=== PATIENT | female | born 1945 | race Two or more races ===

== ENCOUNTER 2016-07-20 00:03 | Emergency (ER) | payer MEDICAID, MEDICARE ==
[~2016-07-20] VITALS: Ht 154.9 cm; Wt 56.7 kg
[~2016-07-20 00:03] MED LIST: IBUPROFEN600 MG ORAL; KEFLEX500 MG ORAL; NORCO 5-325 TA1 EACH ORAL
[2016-07-20] MEDS ORDERED: NEURONTIN800 MG ORAL (00:12)
[2016-07-20] MEDS ORDERED: CYMBALTA60 MG ORAL (00:12)
[2016-07-20 00:15] VITALS: BP 179/96
[2016-07-20 01:21] LABS: APPEARANCE,URINE CLEAR; KETONES,URINE NEGATIVE (NEGATIVE); LEUKOCYTE ESTERASE ,URINE 1+ (NEGATIVE); NITRITE,URINE NEGATIVE (NEGATIVE); PH,URINE 7 (4.5-8.0); PROTEIN,URINE NEGATIVE (NEGATIVE); UROBILINOGEN,URINE NORMAL MG/DL (0.0-1.0)
[2016-07-20 01:46] LABS: BACTERIA,URINE OCCASIONAL /HPF; SQUAMOUS EPITHELIAL CELL,UR FEW /LPF (NONE/OCC); TRANSITIONAL EPI CELLS,URINE FEW /LPF
[2016-07-20] MEDS ORDERED: KEFLEX500 MG ORAL (01:55)
[2016-07-20] MEDS ORDERED: CYCLOBENZAPRINE10 MG ORAL (01:55)
[2016-07-20] MEDS ORDERED: Cyclobenzaprine 10mg Tab ORAL ONE (02:00)
[2016-07-20 02:15] VITALS: BP 160/89
[2016-07-20 02:20] VITALS: BP 160/89
--- NOTE | 2016-07-20 04:45 | Emergency Room Report ---
History of Present Illness General Chief Complaint: Back Pain-No Injury Source: Patient Present Illness HPI Patient is a 71-year-old female presented after increased low back spasms. Patient had gradual onset of symptoms. Patient reports having pain to the right flank. She denied any fever. She denied any vomiting. She reports having similar symptoms. Patient had not been having any diarrhea. She denied any worsening pain with movement. She stated that she had been sleeping in a vehicle this may have exacerbated her pain. Allergies: Coded Allergies: IODINE (Verified Allergy, Unknown, 01/22/16) Patient History Past Medical History: see triage record Reviewed Nursing Documentation: PMH: Agreed, PSxH: Agreed Nursing Documentation-PMH Hx Gastrointestinal Problems: Yes - REMOVAL OF GULL BLADDER History Of Psychiatric Problem: Yes Review of Systems All Other Systems: negative except mentioned in HPI Physical Exam Vital Signs Date Time Temp Pulse Resp B/P Pulse Ox O2 Delivery O2 Flow Rate FiO2 07/20/16 00:07 97.3 74 16 179/96 98 Room Air Sp02 EP Interpretation: reviewed, normal General Appearance: normal inspection, well appearing, no apparent distress, alert, GCS 15 Head: atraumatic ENT: normal ENT inspection, hearing grossly normal, normal voice Neck: normal inspection, full range of motion, supple, no bony tend Respiratory: normal inspection, lungs clear, normal breath sounds, no respiratory distress, no retraction, no wheezing Cardiovascular #1: regular rate, rhythm, no edema Gastrointestinal: normal inspection, normal bowel sounds, non tender, soft, no guarding, no hernia Genitourinary: no CVA tenderness Musculoskeletal: normal inspection, back normal, normal range of motion Neurologic: normal inspection, alert, oriented x3, responsive, cattle inspector III-XII nml as tested, speech normal Psychiatric: normal inspection, judgement/insight normal, mood/affect normal Skin: normal inspection, normal color, no rash Medical Decision Making Diagnostic Impression: Primary Impression: UTI (urinary tract infection) Additional Impression: Back pain ER Course Patient presented for flank pain. Differential diagnosis included was not limited to pneumonia, renal stone, rib fracture, pulmonary embolism, ulcer, enteritis, pyelonephritis among others. Because of complexity of patient's case imaging studies were ordered. Urinalysis showed evidence of mild urinary tract infection. CT the head and pelvis read by radiology showed a fibroid uterus without evident stone. Patient is given muscle relaxant. She is advised followup with primary care physician. She is given prescription for oral antibiotics. Last Vital Signs Date Time Temp Pulse Resp B/P Pulse Ox O2 Delivery O2 Flow Rate FiO2 07/20/16 02:20 97.3 76 16 160/89 98 Room Air Status: improved Disposition: HOME, SELF-CARE Condition: Stable Scripts Cyclobenzaprine Hcl* (FLEXERIL*) 10 Mg Tablet 10 MG ORAL TID Y for Muscle Spasm, #20 TAB Prov: Edgardo Huber 07/20/16 Cephalexin* (KEFLEX*) 500 Mg Capsule 500 MG ORAL EVERY 6 HOURS, #28 CAP 0 Refills Prov: Edgardo Huber 07/20/16 Referrals: NON PHYSICIAN (PCP) Patient Instructions: Back Pain, Adult Edgardo Huber Jul 20, 2016 04:45
--- NOTE | 2016-07-20 09:06 | Diagnostic Imaging Report ---
Indication: PAIN Technique: Spiral acquisitions obtained through the abdomen and pelvis. No oral contrast utilized, per emergency room physician request No IV contrast utilized, , history contrast allergy.. Multiplanar reconstructions were generated. Total dose length product 572 mGycm. CTDIvol(s) 11 mGy Comparison: None Findings: There is fairly extensive colonic diverticulosis. No evidence of diverticulitis. The appendix is normal. No small bowel distention. No free or loculated intraperitoneal air or fluid. There is a small fat-containing umbilical hernia, and generalized mild diastases of the rectus abdominis tendon. The distal esophagus, stomach, duodenum are unremarkable. Lack of IV contrast limits assessment of the solid organs. The gallbladder is surgically absent. The liver, bile ducts, pancreas, spleen, adrenals, kidneys are unremarkable. No retroperitoneal or mesenteric mass or adenopathy. No pelvic mass or adenopathy. There is a calcification within the uterus which likely represents an old degenerated fibroid. The included lung bases are clear. The bones demonstrate degenerative changes of the lumbosacral junction. Impression: No acute process Colonic diverticulosis Incidental findings as noted, including degenerative spondylosis, old degenerated calcified uterine fibroid, prior cholecystectomy, small fat-containing umbilical hernia This agrees with the preliminary interpretation provided overnight by [facility] teleradiology service. The CT scanner at [facility] is accredited by the [employer] and the scans are performed using protocols designed to limit radiation exposure to as low as reasonably achievable to attain images of sufficient resolution adequate for diagnostic evaluation.
== END 2016-07-20 02:20 | disposition home or self-care (01) ==
LOC: EMR 00:58
DX: N39.0 Urinary tract infection, site not specified (principal); Z90.49 Acquired absence of other specified parts of digestive tract; K57.30 Diverticulosis of large intestine without perforation or abscess without bleeding
CPT/HCPCS: 74176; 81003; 99284

== ENCOUNTER → 2016-08-14 | Emergency (ER) | payer MEDICARE ==
[~2016-08-14] VITALS: Ht 154.9 cm; Wt 57.6 kg
[~2016-08-14] MED LIST changes: +CYCLOBENZAPRINE10 MG ORAL; +CYMBALTA60 MG ORAL; +NEURONTIN800 MG ORAL
[2016-08-14 23:05] VITALS: BP 135/76
--- NOTE | 2016-08-14 23:15 | Emergency Room Report ---
History of Present Illness General Chief Complaint: Hypertension Source: Patient Present Illness HPI Is a 71-year-old female with history of hypertension. She takes Benicar for it. She been out of her medication for last 3 or 4 days. This is deep to insurance. Her insurance switch her to losartan which is on the formulary. She just to get this evening. This morning, she was at a nursing care and blood pressure will was ranging from systolic 160-180. She had no symptom. The nurse told her that if she started having headache or neck tightness to go to the ER. She had any symptoms in his was see here. She fell better now. No other complaint. Allergies: Coded Allergies: IODINE (Verified Allergy, Unknown, 01/22/16) Uncoded Allergies: ANTIBIOTICS (Allergy, Unknown, 08/14/16) PT. STATE SHE CAN ONLY TAKE SULFA DRUGS. Patient History Past Medical History: see triage record, old chart reviewed, HTN Past Surgical History: other Pertinent Family History: none Social History: Reports: smoking Last Menstrual Period: NONE Now: No Immunizations: other Reviewed Nursing Documentation: PMH: Agreed, PSxH: Agreed Nursing Documentation-PMH Hx Hypertension: Yes Review of Systems Eye: Denies: blurred vision, eye pain ENT: Denies: ear pain, nose congestion, throat swelling Respiratory: Denies: cough, shortness of breath Cardiovascular: Denies: chest pain, palpitations Gastrointestinal: Denies: abdominal pain, diarrhea, nausea, vomiting Musculoskeletal: Denies: back pain, joint pain Skin: Denies: rash Neurological: Denies: headache, numbness Endocrine: Denies: increased thirst, increased urine Hematologic/Lymphatic: Denies: easy bruising All Other Systems: negative except mentioned in HPI Physical Exam Vital Signs Date Time Temp Pulse Resp B/P Pulse Ox O2 Delivery O2 Flow Rate FiO2 08/14/16 21:52 98.1 78 18 149/93 98 Room Air vitals with mild hypertension Sp02 EP Interpretation: reviewed, normal General Appearance: well appearing, no apparent distress, alert Head: normocephalic, atraumatic Eyes: bilateral eye EOMI, bilateral eye PERRL ENT: hearing grossly normal, normal pharynx Neck: full range of motion, supple, no meningismus Respiratory: chest non-tender, lungs clear, normal breath sounds Cardiovascular #1: regular rate, rhythm, no murmur Gastrointestinal: normal bowel sounds, non tender, no mass, no organomegaly, no bruit, non-distended Musculoskeletal: back normal, gait/station normal, normal range of motion Psychiatric: mood/affect normal Skin: warm/dry Medical Decision Making Diagnostic Impression: Primary Impression: Hypertension Qualified Codes: I10 - Essential (primary) hypertension ER Course Patient with hypotension. Blood pressure much better here now. Systolic 130s. No evidence of endorgan damage. We'll discharge home. Last Vital Signs Date Time Temp Pulse Resp B/P Pulse Ox O2 Delivery O2 Flow Rate FiO2 08/14/16 23:05 98.1 81 18 135/76 98 Room Air Status: improved Disposition: HOME, SELF-CARE Condition: Stable Patient Instructions: High Blood Pressure (Hypertension) Additional Instructions: Continue with a new blood pressure medication. Followup with your Dr. in the week for recheck. Return if worse. BHAVNA BOWERS M.D. August 14, 2016 23:15
[2016-08-14 23:22] VITALS: BP 135/76
== END | disposition home or self-care (01) ==
LOC: EMR 22:06
DX: I10 Essential (primary) hypertension (principal); Z88.1 Allergy status to other antibiotic agents; Z88.8 Allergy status to other drugs, medicaments and biological substances; F17.200 Nicotine dependence, unspecified, uncomplicated
CPT/HCPCS: 99282

== ENCOUNTER 2017-01-11 15:26 | Inpatient (IN) | payer MEDICARE ==
[~2017-01-11] VITALS: Ht 154.9 cm; Wt 66.2 kg
[2017-01-11 16:20] LABS: BASOPHILS % (AUTO) 1.6 % (0.0-2.0); EOSINOPHILS % (AUTO) 1.3 % (0.0-3.0); LYMPHOCYTES % (AUTO) 40.9 % (20.0-45.0); MEAN CORPUSCULAR HEMOGLOBIN 29.9 PG (27.0-31.0); MEAN CORPUSCULAR HGB CONC 32.5 G/DL (32.0-36.0); MEAN CORPUSCULAR VOLUME 92 FL (80-99); MEAN PLATELET VOLUME 7.7 FL (6.5-10.1); MONOCYTES % (AUTO) 17.1 % (1.0-10.0); NEUTROPHILS % (AUTO) 39.2 % (45.0-75.0); PLATELET COUNT 246 K/UL (150-450); RED BLOOD COUNT 5.23 M/UL (4.20-5.40); RED CELL DISTRIBUTION WIDTH 11.5 % (11.6-14.8); WHITE BLOOD COUNT 8.7 K/UL (4.8-10.8)
[2017-01-11 16:43] LABS: ALANINE AMINOTRANSFERASE 12 U/L (3-33); ALBUMIN/GLOBULIN RATIO 1.5 (1.0-2.7); ANION GAP 20 (5-15); ASPARTATE AMINO TRANSFERASE 22 U/L (5-40); CALCIUM 9.8 mg/dL (8.6-10.2); CARBON DIOXIDE 27 mEQ/L (20-30); CHLORIDE 92 mEQ/L (98-107); CREATININE 1.6 mg/dL (0.5-0.9); HEMOLYSIS 10; POTASSIUM 3.2 mEQ/L (3.4-4.9); SODIUM 139 mEQ/L (135-145); TOTAL PROTEIN 7.5 g/dL (6.6-8.7); TROPONIN I < 0.30 ng/mL (<=0.30)
--- NOTE | 2017-01-11 17:01 | Diagnostic Imaging Report ---
Indication: SYNCOPE Technique: spiral acquisitions obtained through the brain. Angled axial and coronal 5 x 5 mm slices were reconstructed. No IV contrast utilized. Radiation dose was minimized using automated exposure control Total dose length product 1456 mGycm. CTDIvol(s) 70 mGy Comparison: none FINDINGS: There is a focus of cortical encephalomalacia in the posterior inferior right parietal lobe. Questionable lacunar infarct versus artifacts are seen in the [place]. No acute hemorrhage or edema. No mass effect or midline shift. There is age-related enlargement of the ventricles and extra axial CSF spaces. There is periventricular deep white matter ischemic change. Normal ayala-white differentiation. Visualized orbits are unremarkable. There is left maxillary, bilateral ethmoid and sphenoid mucosal thickening. The mastoids are clear. Intact calvarium. IMPRESSION: Chronic and age-related changes. 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
--- NOTE | 2017-01-11 17:04 | Diagnostic Imaging Report ---
Indication: SYNCOPE Technique: One view of the chest Comparison: none Findings: No acute infiltrates, effusions, or congestion. Tortuous calcified aorta. Normal heart size. Upper mediastinum unremarkable. Incidentally noted are cholecystectomy clips Impression: No acute process.
[2017-01-11 17:44] VITALS: BP 84/39
[2017-01-11] MEDS ORDERED: LOSARTAN POTASS50 MG ORAL (18:26)
[2017-01-11 19:35] VITALS: BP 112/55
--- NOTE | 2017-01-11 19:35 | Emergency Room Report ---
History of Present Illness General Chief Complaint: Syncope Source: Patient Present Illness HPI Patient is a 71-year-old female presented after increased dizziness and near- syncope. Patient had been vomiting several times. Patient stated this occurred after feeling dizzy. Patient stated that she had been feeling nauseated after eating some food. She subsequently began having some generalized weakness. The patient had history of chronic neck pain due to fibromyalgia and degenerative disease.The patient reports taking angiotensin receptor jimmie for hypertension Allergies: Coded Allergies: IODINE (Verified Allergy, Unknown, 01/22/16) Uncoded Allergies: ANTIBIOTICS (Allergy, Unknown, 08/14/16) PT. STATE SHE CAN ONLY TAKE SULFA DRUGS. Patient History Past Medical History: see triage record Reviewed Nursing Documentation: PMH: Agreed, PSxH: Agreed Nursing Documentation-PMH Hx Hypertension: Yes Review of Systems All Other Systems: negative except mentioned in HPI Physical Exam Vital Signs Date Time Temp Pulse Resp B/P (MAP) Pulse Ox O2 Delivery O2 Flow Rate FiO2 01/11/17 15:43 98.4 78 20 131/62 95 Room Air Sp02 EP Interpretation: reviewed, normal General Appearance: normal inspection, well appearing, no apparent distress, alert, GCS 15 Head: atraumatic ENT: normal ENT inspection, hearing grossly normal, normal voice Neck: normal inspection, full range of motion, supple, no bony tend Respiratory: normal inspection, lungs clear, normal breath sounds, no respiratory distress, no retraction, no wheezing Cardiovascular #1: regular rate, rhythm, no edema Gastrointestinal: normal inspection, normal bowel sounds, non tender, soft, no guarding, no hernia Genitourinary: no CVA tenderness Musculoskeletal: normal inspection, back normal, normal range of motion Neurologic: normal inspection, alert, oriented x3, responsive, print color matcher III-XII nml as tested, speech normal Psychiatric: normal inspection, judgement/insight normal, mood/affect normal Skin: normal inspection, normal color, no rash Medical Decision Making Diagnostic Impression: Primary Impression: Syncope Additional Impressions: Renal insufficiency Dehydration ER Course Patient presented for near syncope Differential diagnosis included but not limited to syncope versus seizure. Potential causes for syncope included arrhythmia, dehydration, acute coronary syndrome, severe anemia, pulmonary embolus. Because of complexity of patient's case laboratory testing and imaging studies were ordered. The EKG interpreted by me showed normal sinus rhythm with multiple PACs without acute ST or T wave changes rate of 87 CT the head was ordered of the patient's had dizziness. This was read by radiology to have right posterior parietal encephalomalaciaThe patient was noted to have episode of hypotension on the emergency department after IV fluids. Dr. Logan was contacted for for inpatient management Laboratory Tests Test 01/11/17 15:55 01/11/17 19:15 White Blood Count 8.7 K/UL (4.8-10.8) Red Blood Count 5.23 M/UL (4.20-5.40) Hemoglobin 15.7 G/DL (12.0-16.0) Hematocrit 48.1 % (37.0-47.0) H Mean Corpuscular Volume 92 FL (80-99) Mean Corpuscular Hemoglobin 29.9 PG (27.0-31.0) Mean Corpuscular Hemoglobin Concent 32.5 G/DL (32.0-36.0) Red Cell Distribution Width 11.5 % (11.6-14.8) L Platelet Count 246 K/UL (150-450) Mean Platelet Volume 7.7 FL (6.5-10.1) Neutrophils (%) (Auto) 39.2 % (45.0-75.0) L Lymphocytes (%) (Auto) 40.9 % (20.0-45.0) Monocytes (%) (Auto) 17.1 % (1.0-10.0) H Eosinophils (%) (Auto) 1.3 % (0.0-3.0) Basophils (%) (Auto) 1.6 % (0.0-2.0) Sodium Level 139 mEQ/L (135-145) Potassium Level 3.2 mEQ/L (3.4-4.9) L Chloride Level 92 mEQ/L (98-107) L Carbon Dioxide Level 27 mEQ/L (20-30) Anion Gap 20 (5-15) H Blood Urea Nitrogen 25 mg/dL (7-23) H Creatinine 1.6 mg/dL (0.5-0.9) H Estimate Glomerular Filtration Rate mL/min (>60) Glucose Level 192 mg/dL (74-106) H Calcium Level 9.8 mg/dL (8.6-10.2) Total Bilirubin 0.5 mg/dL (0.0-1.2) Aspartate Amino Transferase (AST) 22 U/L (5-40) Alanine Aminotransferase (ALT) 12 U/L (3-33) Alkaline Phosphatase 74 U/L (35-104) Total Creatine Kinase 46 U/L (26-140) Creatine Kinase MB 2.0 ng/mL (< 3.8) Creatine Kinase MB Relative Index 4.3 Troponin I < 0.30 ng/mL (<=0.30) Total Protein 7.5 g/dL (6.6-8.7) Albumin 4.6 g/dL (3.5-5.2) Globulin 2.9 g/dL Albumin/Globulin Ratio 1.5 (1.0-2.7) Urine Opiates Screen Pending Urine Barbiturates Screen Pending Phencyclidine (PCP) Screen Pending Urine Amphetamines Screen Pending Urine Benzodiazepines Screen Pending Urine Cocaine Screen Pending Urine Marijuana (THC) Screen Pending Last Vital Signs Date Time Temp Pulse Resp B/P (MAP) Pulse Ox O2 Delivery O2 Flow Rate FiO2 01/11/17 17:44 98.7 74 18 84/39 98 Room Air Status: unchanged Disposition: ADMITTED INPATIENT Condition: Serious Referrals: NON PHYSICIAN (PCP) Edgardo Huber Jan 11, 2017 19:35
[2017-01-11] MEDS ORDERED: Miralax 17gm pkt ORAL PRN (20:00)
[2017-01-11 20:05] VITALS: BP_SYST 103; BP_SYST 107; BP_SYST 109; BP_DIAS 66; BP_DIAS 68; BP_DIAS 71
[2017-01-11 21:22] VITALS: BP 102/62
[2017-01-11 22:20] VITALS: BP 105/68
[2017-01-11 23:00] VITALS: BP 114/68
[2017-01-11] MEDS: Docusate 100mg cap ORAL SCH (23:36)
[2017-01-11] MEDS: Heparin 5000 units/ml inj SUBQ SCH (23:37)
[2017-01-11] MEDS: NS w/KCl 20mEq 1,000 ML IV SCH (23:49)
[2017-01-12 01:13] VITALS: BP 118/73
[2017-01-12 01:32] LABS: APPEARANCE,URINE CLEAR; KETONES,URINE NEGATIVE (NEGATIVE); LEUKOCYTE ESTERASE ,URINE NEGATIVE (NEGATIVE); NITRITE,URINE NEGATIVE (NEGATIVE); PH,URINE 5 (4.5-8.0); PROTEIN,URINE NEGATIVE (NEGATIVE); UROBILINOGEN,URINE NORMAL MG/DL (0.0-1.0)
[2017-01-12 04:31] VITALS: BP 101/73
[2017-01-12] MEDS ORDERED: GABAPENTIN800 MG ORAL (05:57)
[2017-01-12 07:39] LABS: BASOPHILS % (AUTO) 0.5 % (0.0-2.0); EOSINOPHILS % (AUTO) 2.3 % (0.0-3.0); LYMPHOCYTES % (AUTO) 44.4 % (20.0-45.0); MEAN CORPUSCULAR HGB CONC 33.5 G/DL (32.0-36.0); MEAN CORPUSCULAR VOLUME 89 FL (80-99); MEAN PLATELET VOLUME 7.7 FL (6.5-10.1); MONOCYTES % (AUTO) 8.5 % (1.0-10.0); NEUTROPHILS % (AUTO) 44.3 % (45.0-75.0); PLATELET COUNT 216 K/UL (150-450); RED BLOOD COUNT 4.39 M/UL (4.20-5.40); RED CELL DISTRIBUTION WIDTH 11.4 % (11.6-14.8); WHITE BLOOD COUNT 7.8 K/UL (4.8-10.8)
[2017-01-12 07:51] LABS: ANION GAP 12 (5-15); CALCIUM 8.6 mg/dL (8.6-10.2); CARBON DIOXIDE 28 mEQ/L (20-30); CHLORIDE 102 mEQ/L (98-107); CHOLESTEROL 173 mg/dL (< 200); CHOLESTEROL/HDL RATIO 6.2 (3.3-4.4); CREATININE 0.9 mg/dL (0.5-0.9); HEMOLYSIS 4; LDL CHOLESTEROL CALC 107 mg/dL (60-99); POTASSIUM 3.2 mEQ/L (3.4-4.9); SODIUM 142 mEQ/L (135-145)
[2017-01-12 07:57] LABS: THYROID STIMULATING HORMONE 0.957 uIU/mL (0.300-4.500)
[2017-01-12 08:00] VITALS: BP 146/93
[2017-01-12] MEDS: NS w/KCl 20mEq 1,000 ML IV SCH ×3 (08:00→22:27)
[2017-01-12 08:21] LABS: TROPONIN I < 0.30 ng/mL (<=0.30)
[2017-01-12 08:57] LABS: HEMOGLOBIN A1C 5.6 % (< 6.0)
[2017-01-12] MEDS ORDERED: Flu Vaccine Quadrivalent 0.5ml IM ONE (09:00)
[2017-01-12] MEDS: Docusate 100mg cap ORAL SCH ×2 (10:35→21:04)
[2017-01-12] MEDS: Pantoprazole Inj IV SCH (10:35)
[2017-01-12] MEDS: Aspirin Baby 81mg ORAL SCH (10:35)
[2017-01-12] MEDS: DULoxetine 30mg cap ORAL SCH (10:36)
[2017-01-12] MEDS: Heparin 5000 units/ml inj SUBQ SCH ×2 (10:37→21:06)
[2017-01-12 12:00] VITALS: BP 161/70
--- NOTE | 2017-01-12 12:17 | Diagnostic Imaging Report ---
Indication: Abdominal pain comparison: 07/20/2016 CT abdomen and pelvis Technique: Contiguous helical CT images through the abdomen and pelvis was performed without intravenous or oral contrast. Reportedly, patient is allergic to iodine. CT Dose: Total DLP: 62 mGycm; Total CTDI volume 13.1 Timings: Liver appears normal. Patient is status post cholecystectomy with gallbladder fossa clips. Spleen is normal. Pancreas is normal. Adrenal glands are normal. Kidneys are normal. No hydronephrosis. No urinary tract stones. No evidence of bowel obstruction. Small umbilical hernia containing fat only is seen. Normal appendix. No free fluid or free air. Atherosclerotic calcifications of the abdominal aorta and iliac arteries. No aneurysm. In the pelvis, urinary bladder is normal. Calcifications likely due to calcified fibroids are seen in the uterus. No significant lymphadenopathy. Bones unremarkable. Lung bases are clear. Impression: No definite acute abnormalities of the abdomen pelvis on this limited noncontrast examination. Status post cholecystectomy Diverticulosis: without diverticulitis. Small umbilical hernia containing fat only.
--- NOTE | 2017-01-12 15:13 | Cardiac Electrophysiology PN ---
Subjective Subjective [id number] Objective Last 24 Hour Vital Signs Date Time Temp Pulse Resp B/P (MAP) Pulse Ox O2 Delivery O2 Flow Rate FiO2 01/12/17 12:50 76 85 86 01/12/17 12:00 98.1 74 18 161/70 99 Room Air 01/12/17 08:00 97.0 72 19 146/93 96 Nasal Cannula 2.0 01/12/17 08:00 77 01/12/17 04:31 98.1 77 20 101/73 96 Room Air 01/12/17 04:00 74 01/12/17 01:13 98.8 77 20 118/73 96 Room Air 01/12/17 00:00 75 01/11/17 23:00 98.5 85 18 114/68 98 Room Air 01/11/17 23:00 80 01/11/17 23:00 89 01/11/17 22:55 82 01/11/17 22:50 85 01/11/17 22:35 98.2 74 18 105/68 100 Room Air 01/11/17 22:20 98.2 74 18 105/68 100 Room Air 01/11/17 21:22 98.4 72 16 102/62 99 Room Air 01/11/17 20:05 98.2 72 18 107/66 100 Room Air 74 103/68 76 109/71 01/11/17 19:35 98.4 68 17 112/55 99 Room Air 01/11/17 17:44 98.7 74 18 84/39 98 Room Air 01/11/17 15:43 98.4 78 20 131/62 95 Room Air Intake and Output 01/12/17 01/13/17 19:00 07:00 Intake Total 480 ml Balance 480 ml Intake Oral 480 ml # Voids 1 Laboratory Tests Test 01/11/17 15:55 01/11/17 19:15 01/12/17 00:52 01/12/17 05:50 White Blood Count 8.7 K/UL (4.8-10.8) 7.8 K/UL (4.8-10.8) Red Blood Count 5.23 M/UL (4.20-5.40) 4.39 M/UL (4.20-5.40) Hemoglobin 15.7 G/DL (12.0-16.0) 13.2 G/DL (12.0-16.0) Hematocrit 48.1 % (37.0-47.0) H 39.2 % (37.0-47.0) Mean Corpuscular Volume 92 FL (80-99) 89 FL (80-99) Mean Corpuscular Hemoglobin 29.9 PG (27.0-31.0) 30.0 PG (27.0-31.0) Mean Corpuscular Hemoglobin Concent 32.5 G/DL (32.0-36.0) 33.5 G/DL (32.0-36.0) Red Cell Distribution Width 11.5 % (11.6-14.8) L 11.4 % (11.6-14.8) L Platelet Count 246 K/UL (150-450) 216 K/UL (150-450) Mean Platelet Volume 7.7 FL (6.5-10.1) 7.7 FL (6.5-10.1) Neutrophils (%) (Auto) 39.2 % (45.0-75.0) L 44.3 % (45.0-75.0) L Lymphocytes (%) (Auto) 40.9 % (20.0-45.0) 44.4 % (20.0-45.0) Monocytes (%) (Auto) 17.1 % (1.0-10.0) H 8.5 % (1.0-10.0) Eosinophils (%) (Auto) 1.3 % (0.0-3.0) 2.3 % (0.0-3.0) Basophils (%) (Auto) 1.6 % (0.0-2.0) 0.5 % (0.0-2.0) Sodium Level 139 mEQ/L (135-145) 142 mEQ/L (135-145) Potassium Level 3.2 mEQ/L (3.4-4.9) L 3.2 mEQ/L (3.4-4.9) L Chloride Level 92 mEQ/L (98-107) L 102 mEQ/L (98-107) Carbon Dioxide Level 27 mEQ/L (20-30) 28 mEQ/L (20-30) Anion Gap 20 (5-15) H 12 (5-15) Blood Urea Nitrogen 25 mg/dL (7-23) H 23 mg/dL (7-23) Creatinine 1.6 mg/dL (0.5-0.9) H 0.9 mg/dL (0.5-0.9) Estimat Glomerular Filtration Rate mL/min (>60) mL/min (>60) Glucose Level 192 mg/dL (74-106) H 94 mg/dL (74-106) Calcium Level 9.8 mg/dL (8.6-10.2) 8.6 mg/dL (8.6-10.2) Total Bilirubin 0.5 mg/dL (0.0-1.2) Aspartate Amino Transf (AST/SGOT) 22 U/L (5-40) Alanine Aminotransferase (ALT/SGPT) 12 U/L (3-33) Alkaline Phosphatase 74 U/L (35-104) Total Creatine Kinase 46 U/L (26-140) Creatine Kinase MB 2.0 ng/mL (< 3.8) Creatine Kinase MB Relative Index 4.3 Troponin I < 0.30 ng/mL (<=0.30) < 0.30 ng/mL (<=0.30) Total Protein 7.5 g/dL (6.6-8.7) Albumin 4.6 g/dL (3.5-5.2) Globulin 2.9 g/dL Albumin/Globulin Ratio 1.5 (1.0-2.7) Urine Opiates Screen Negative (NEGATIVE) Urine Barbiturates Screen Negative (NEGATIVE) Phencyclidine (PCP) Screen Negative (NEGATIVE) Urine Amphetamines Screen Negative (NEGATIVE) Urine Benzodiazepines Screen Negative (NEGATIVE) Urine Cocaine Screen Negative (NEGATIVE) Urine Marijuana (THC) Screen Positive (NEGATIVE) H Urine Color Pale yellow Urine Appearance Clear Urine pH 5 (4.5-8.0) Urine Specific [place] 1.015 (1.005-1.035) Urine Protein Negative (NEGATIVE) Urine Glucose (UA) Negative (NEGATIVE) Urine Ketones Negative (NEGATIVE) Urine Occult Blood Negative (NEGATIVE) Urine Nitrite Negative (NEGATIVE) Urine Bilirubin Negative (NEGATIVE) Urine Urobilinogen Normal MG/DL (0.0-1.0) Urine Leukocyte Esterase Negative (NEGATIVE) Hemoglobin A1c 5.6 % (< 6.0) Magnesium Level 2.0 mg/dL (1.7-2.5) Pro-B-Type Natriuretic Peptide 129 pg/mL (0-125) H Triglycerides Level 188 mg/dL (< 150) H Cholesterol Level 173 mg/dL (< 200) LDL Cholesterol 107 mg/dL (60-99) H HDL Cholesterol 28 mg/dL (> 60) Cholesterol/HDL Ratio 6.2 (3.3-4.4) H Thyroid Stimulating Hormone (TSH) 0.957 uIU/mL (0.300-4.500) Microbiology Date/Time Source Procedure Growth Status 01/12/17 01:15 Stool Clostridium difficile Toxin Assay - Final Complete DEBBIE RUBIO Jan 12, 2017 15:13
--- NOTE | 2017-01-12 15:29 | History and Physical ---
History of Present Illness General Date patient seen: Jan 12, 2017 Time patient seen: 15:29 Reason for Hospitalization: Syncope Present Illness HPI 71y/o female with pmh of fibromylagia, HTN who presents after syncopal episode. Per son, pt had episode of dizziness and near syncope. She c/o epigastric pain and nausea at the time after eating. No reports of chest pain, SOB, f/c, n/v, abd pain at the time. Then in triage, pt had episode of syncope after nb/nb emesis x 1. Pt also notes episode of diarrhea yesterday, but none today. In ED, pt noted to be hypotensive and given IVFs with good response. Allergies: Coded Allergies: IODINE (Verified Allergy, Unknown, 01/22/16) Uncoded Allergies: ANTIBIOTICS (Allergy, Unknown, 08/14/16) PT. STATE SHE CAN ONLY TAKE SULFA DRUGS. Medication History Scheduled Duloxetine Hcl* (Cymbalta*), 120 MG ORAL DAILY, (Reported) Gabapentin* (Gabapentin*), 1,600 MG ORAL BID, (Reported) Losartan Potassium* (Losartan Potassium*), Unknown Dose ORAL DAILY, (Reported) Patient History Healthcare decision maker Resuscitation status Full Code Advanced Directive on File Past Medical/Surgical History Past Medical/Surgical History: (1) Fibromyalgia (2) HTN (hypertension) Family History Family History: Patient reports no known family medical history. Social History Social History: (1) Lives with family Review of Systems Constitutional: Reports: no symptoms Eye: Reports: no symptoms ENT: Reports: no symptoms Respiratory: Reports: no symptoms Gastrointestinal: Reports: abdominal pain, diarrhea, nausea, vomiting Genitourinary: Reports: no symptoms Musculoskeletal: Reports: no symptoms Skin: Reports: no symptoms Psychiatric: Reports: no symptoms Neurological: Reports: syncope, dizziness Endocrine: Reports: no symptoms Hematologic/Lymphatic: Reports: no symptoms Physical Exam Physical Exam Narrative General: alert, cooperative, no distress, appears stated age Head: normocephalic, without obvious abnormality, atraumatic Eyes: conjunctivae/corneas clear. PERRL, EOM's intact Throat: lips, mucosa, and tongue normal. MMM Neck: supple, symmetrical, trachea midline, and no JVD Lungs: clear to auscultation bilaterally Heart: regular rate and rhythm, S1, S2 normal, no murmur, click, rub or gallop Abdomen: soft, non-tender, non-distended, bowel sounds normal; no masses or organomegaly Extremities: extremities normal, atraumatic, no cyanosis or edema Pulses: 2+ and symmetric Skin: skin color, texture, turgor normal; no rashes or lesions Neurologic: grossly normal, no focal deficits Last 24 Hour Vital Signs Date Time Temp Pulse Resp B/P (MAP) Pulse Ox O2 Delivery O2 Flow Rate FiO2 01/12/17 12:50 76 85 86 01/12/17 12:00 98.1 74 18 161/70 99 Room Air 01/12/17 08:00 97.0 72 19 146/93 96 Nasal Cannula 2.0 01/12/17 08:00 77 01/12/17 04:31 98.1 77 20 101/73 96 Room Air 01/12/17 04:00 74 01/12/17 01:13 98.8 77 20 118/73 96 Room Air 01/12/17 00:00 75 01/11/17 23:00 98.5 85 18 114/68 98 Room Air 01/11/17 23:00 80 01/11/17 23:00 89 01/11/17 22:55 82 01/11/17 22:50 85 01/11/17 22:35 98.2 74 18 105/68 100 Room Air 01/11/17 22:20 98.2 74 18 105/68 100 Room Air 01/11/17 21:22 98.4 72 16 102/62 99 Room Air 01/11/17 20:05 98.2 72 18 107/66 100 Room Air 74 103/68 76 109/71 01/11/17 19:35 98.4 68 17 112/55 99 Room Air 01/11/17 17:44 98.7 74 18 84/39 98 Room Air 01/11/17 15:43 98.4 78 20 131/62 95 Room Air Intake and Output 01/12/17 01/13/17 19:00 07:00 Intake Total 480 ml Balance 480 ml Intake Oral 480 ml # Voids 1 Laboratory Tests Test 01/11/17 15:55 01/11/17 19:15 01/12/17 00:52 01/12/17 05:50 White Blood Count 8.7 K/UL (4.8-10.8) 7.8 K/UL (4.8-10.8) Red Blood Count 5.23 M/UL (4.20-5.40) 4.39 M/UL (4.20-5.40) Hemoglobin 15.7 G/DL (12.0-16.0) 13.2 G/DL (12.0-16.0) Hematocrit 48.1 % (37.0-47.0) H 39.2 % (37.0-47.0) Mean Corpuscular Volume 92 FL (80-99) 89 FL (80-99) Mean Corpuscular Hemoglobin 29.9 PG (27.0-31.0) 30.0 PG (27.0-31.0) Mean Corpuscular Hemoglobin Concent 32.5 G/DL (32.0-36.0) 33.5 G/DL (32.0-36.0) Red Cell Distribution Width 11.5 % (11.6-14.8) L 11.4 % (11.6-14.8) L Platelet Count 246 K/UL (150-450) 216 K/UL (150-450) Mean Platelet Volume 7.7 FL (6.5-10.1) 7.7 FL (6.5-10.1) Neutrophils (%) (Auto) 39.2 % (45.0-75.0) L 44.3 % (45.0-75.0) L Lymphocytes (%) (Auto) 40.9 % (20.0-45.0) 44.4 % (20.0-45.0) Monocytes (%) (Auto) 17.1 % (1.0-10.0) H 8.5 % (1.0-10.0) Eosinophils (%) (Auto) 1.3 % (0.0-3.0) 2.3 % (0.0-3.0) Basophils (%) (Auto) 1.6 % (0.0-2.0) 0.5 % (0.0-2.0) Sodium Level 139 mEQ/L (135-145) 142 mEQ/L (135-145) Potassium Level 3.2 mEQ/L (3.4-4.9) L 3.2 mEQ/L (3.4-4.9) L Chloride Level 92 mEQ/L (98-107) L 102 mEQ/L (98-107) Carbon Dioxide Level 27 mEQ/L (20-30) 28 mEQ/L (20-30) Anion Gap 20 (5-15) H 12 (5-15) Blood Urea Nitrogen 25 mg/dL (7-23) H 23 mg/dL (7-23) Creatinine 1.6 mg/dL (0.5-0.9) H 0.9 mg/dL (0.5-0.9) Estimat Glomerular Filtration Rate mL/min (>60) mL/min (>60) Glucose Level 192 mg/dL (74-106) H 94 mg/dL (74-106) Calcium Level 9.8 mg/dL (8.6-10.2) 8.6 mg/dL (8.6-10.2) Total Bilirubin 0.5 mg/dL (0.0-1.2) Aspartate Amino Transf (AST/SGOT) 22 U/L (5-40) Alanine Aminotransferase (ALT/SGPT) 12 U/L (3-33) Alkaline Phosphatase 74 U/L (35-104) Total Creatine Kinase 46 U/L (26-140) Creatine Kinase MB 2.0 ng/mL (< 3.8) Creatine Kinase MB Relative Index 4.3 Troponin I < 0.30 ng/mL (<=0.30) < 0.30 ng/mL (<=0.30) Total Protein 7.5 g/dL (6.6-8.7) Albumin 4.6 g/dL (3.5-5.2) Globulin 2.9 g/dL Albumin/Globulin Ratio 1.5 (1.0-2.7) Urine Opiates Screen Negative (NEGATIVE) Urine Barbiturates Screen Negative (NEGATIVE) Phencyclidine (PCP) Screen Negative (NEGATIVE) Urine Amphetamines Screen Negative (NEGATIVE) Urine Benzodiazepines Screen Negative (NEGATIVE) Urine Cocaine Screen Negative (NEGATIVE) Urine Marijuana (THC) Screen Positive (NEGATIVE) H Urine Color Pale yellow Urine Appearance Clear Urine pH 5 (4.5-8.0) Urine Specific [place] 1.015 (1.005-1.035) Urine Protein Negative (NEGATIVE) Urine Glucose (UA) Negative (NEGATIVE) Urine Ketones Negative (NEGATIVE) Urine Occult Blood Negative (NEGATIVE) Urine Nitrite Negative (NEGATIVE) Urine Bilirubin Negative (NEGATIVE) Urine Urobilinogen Normal MG/DL (0.0-1.0) Urine Leukocyte Esterase Negative (NEGATIVE) Hemoglobin A1c 5.6 % (< 6.0) Magnesium Level 2.0 mg/dL (1.7-2.5) Pro-B-Type Natriuretic Peptide 129 pg/mL (0-125) H Triglycerides Level 188 mg/dL (< 150) H Cholesterol Level 173 mg/dL (< 200) LDL Cholesterol 107 mg/dL (60-99) H HDL Cholesterol 28 mg/dL (> 60) Cholesterol/HDL Ratio 6.2 (3.3-4.4) H Thyroid Stimulating Hormone (TSH) 0.957 uIU/mL (0.300-4.500) Microbiology Date/Time Source Procedure Growth Status 01/12/17 01:15 Stool Clostridium difficile Toxin Assay - Final Complete Height (Feet): 5 Height (Inches): 1.00 Weight (Pounds): 146 Medications Current Medications Medications (Trade) Dose Ordered Sig/Terry Route PRN Reason Start Time Stop Time Status Last Admin Dose Admin Acetaminophen (Tylenol) 650 mg Q4H PRN ORAL Mild Pain (Pain Scale 1-3) 01/11/17 20:00 02/10/17 19:59 Amlodipine Besylate (Norvasc) 5 mg DAILY ORAL 01/13/17 09:00 02/12/17 08:59 Aspirin (ASA) 81 mg DAILY ORAL 01/12/17 09:00 02/11/17 08:59 01/12/17 10:35 Dextrose (Dextrose 50%) STAT PRN IV Hypoglycemia 01/11/17 20:00 02/10/17 19:59 Docusate Sodium (Colace) 100 mg EVERY 12 HOURS ORAL 01/11/17 21:00 02/10/17 20:59 01/12/17 10:35 Duloxetine HCl (Cymbalta) 120 mg DAILY ORAL 01/12/17 09:00 02/11/17 08:59 01/12/17 10:36 Heparin Sodium (Porcine) (Heparin 5000 units/ml) 5,000 units EVERY 12 HOURS SUBQ 01/11/17 21:00 02/10/17 20:59 01/12/17 10:37 Ondansetron HCl (Zofran) 4 mg Q6H PRN IVP Nausea & Vomiting 01/11/17 20:00 02/10/17 19:59 Pantoprazole (Protonix) 40 mg DAILY IV 01/12/17 09:00 02/11/17 08:59 01/12/17 10:35 Polyethylene Glycol (Miralax) 17 gm DAILYPRN PRN ORAL Constipation 01/11/17 20:00 02/10/17 19:59 Sodium Chloride 1,000 ml @ 100 mls/hr Q10H IV 01/11/17 22:00 02/10/17 21:59 01/12/17 11:38 Assessment/Plan Problem List: (1) Syncope ICD Codes: R55 - Syncope and collapse SNOMED: 864608040 (2) Hypotension ICD Codes: I95.9 - Hypotension, unspecified SNOMED: 75485233 (3) SOLOMON (acute kidney injury) ICD Codes: N17.9 - Acute kidney failure, unspecified SNOMED: 85909946 (4) Hypokalemia ICD Codes: E87.6 - Hypokalemia SNOMED: 21301658 (5) Abd pain, nausea/emesis, diarrhea Status: stable Assessment/Plan Syncope appears to be vasovagal vs orthostatic hypotension in setting of dehydration given nausea/emesis but will r/o cardiac etiology Pt possibly has viral gastroenteritis given abd pain, nausea/vomiting, diarrhea Admit inpt Trend trop Check TTE Check carotid duplex Cardiology consulted Nuc stress test per cardiology IVFs Hold losartan given hypotension Replete lytes Trend BMP If diarrhea, recurs consider getting stool studies Pain control, nausea control DVT Prophylaxis: SCD, HSQ Code Status: Full Hospital Classification Declaration: Based on this initial evaluation, and depending on the patient's clinical course, I anticipate that this patient will require hospitalization for 2-3 days for syncope, SOLOMON and close respiratory/ hemodynamic monitoring. Disposition: Once the patient is stable to leave the hospital, I anticipate the patient will likely be discharged to the following environment: home with HH vs SNF I spent 70 minutes on this patient's case, and 40 minutes were dedicated to counseling and/or care coordination. Discussed with patient/family, nursing staff, SW/CM, regarding clinical status, treatment course, and disposition planning. Time of note may not reflect time of encounter. Dayna Manning M.D. Jan 12, 2017 15:29
[2017-01-12 16:00] VITALS: BP 130/71
[2017-01-12 20:00] VITALS: BP 138/92
[2017-01-13] VITALS: BP 134/87
[2017-01-13 04:00] VITALS: BP 151/75
[2017-01-13 07:58] VITALS: BP 141/79
[2017-01-13] MEDS: Docusate 100mg cap ORAL SCH ×2 (09:15→20:51)
[2017-01-13] MEDS: DULoxetine 30mg cap ORAL SCH (09:15)
[2017-01-13] MEDS: Pantoprazole Inj IV SCH (09:15)
[2017-01-13] MEDS: Aspirin Baby 81mg ORAL SCH (09:15)
[2017-01-13] MEDS: Heparin 5000 units/ml inj SUBQ SCH ×2 (09:18→20:53)
[2017-01-13] MEDS: NS w/KCl 20mEq 1,000 ML IV SCH (10:25)
[2017-01-13 12:02] VITALS: BP 157/89
[2017-01-13 16:06] VITALS: BP 164/89
[2017-01-13 16:18] LABS: BASOPHILS % (AUTO) 0.6 % (0.0-2.0); EOSINOPHILS % (AUTO) 2.1 % (0.0-3.0); LYMPHOCYTES % (AUTO) 35.1 % (20.0-45.0); MEAN CORPUSCULAR HEMOGLOBIN 29.8 PG (27.0-31.0); MEAN CORPUSCULAR HGB CONC 33.1 G/DL (32.0-36.0); MEAN CORPUSCULAR VOLUME 90 FL (80-99); MEAN PLATELET VOLUME 7.3 FL (6.5-10.1); MONOCYTES % (AUTO) 6.1 % (1.0-10.0); NEUTROPHILS % (AUTO) 56.1 % (45.0-75.0); PLATELET COUNT 230 K/UL (150-450); RED BLOOD COUNT 4.74 M/UL (4.20-5.40); RED CELL DISTRIBUTION WIDTH 11.4 % (11.6-14.8); WHITE BLOOD COUNT 6.7 K/UL (4.8-10.8)
[2017-01-13 16:32] LABS: ANION GAP 13 (5-15); CALCIUM 8.9 mg/dL (8.6-10.2); CARBON DIOXIDE 28 mEQ/L (20-30); CHLORIDE 101 mEQ/L (98-107); CREATININE 0.6 mg/dL (0.5-0.9); HEMOLYSIS 5; MAGNESIUM 1.4 mg/dL (1.7-2.5); PHOSPHORUS 2.2 mg/dL (2.5-4.8); POTASSIUM 3.2 mEQ/L (3.4-4.9); SODIUM 142 mEQ/L (135-145)
--- NOTE | 2017-01-13 19:23 | General Progress Note ---
Assessment/Plan Problem List: (1) Hypomagnesemia ICD Codes: E83.42 - Hypomagnesemia SNOMED: 501289810 (2) Abd pain, nausea/emesis, diarrhea (3) Hypokalemia ICD Codes: E87.6 - Hypokalemia SNOMED: 06537506 (4) Hypotension ICD Codes: I95.9 - Hypotension, unspecified SNOMED: 72380577 (5) SOLOMON (acute kidney injury) ICD Codes: N17.9 - Acute kidney failure, unspecified SNOMED: 40706931 (6) Syncope ICD Codes: R55 - Syncope and collapse SNOMED: 193091856 (7) HTN (hypertension) ICD Codes: I10 - Essential (primary) hypertension SNOMED: 82744314 Status: stable Assessment/Plan Syncope appears to be vasovagal vs orthostatic hypotension in setting of dehydration given nausea/emesis but will r/o cardiac etiology Pt possibly has viral gastroenteritis given abd pain, nausea/vomiting, diarrhea Trend trop TTE showing 60-65% EF with LVH Check carotid duplex Cardiology consulted. Appreciate recs Nuc stress test per cardiology, tomorrow AM IVFs with KCl Elevated BP today. SOLOMON resolved. Resume losartan 50mg PO daily Replete lytes prn Trend BMP If diarrhea, recurs consider getting stool studies. C. diff negative Pain control, nausea control Subjective Date patient seen: Jan 13, 2017 Allergies: Coded Allergies: IODINE (Verified Allergy, Unknown, 01/22/16) Uncoded Allergies: ANTIBIOTICS (Allergy, Unknown, 08/14/16) PT. STATE SHE CAN ONLY TAKE SULFA DRUGS. Subjective BP elevated to 170s today. Given one time dose of amlodipine 5mg Cr normalized s/p IVF hydration ECHO showing LVEF 60-65% with LVH seen by cards Denies N/V, abdominal pain, diarrhea. Denies cp, sob, dizziness. Objective Last 24 Hour Vital Signs Date Time Temp Pulse Resp B/P (MAP) Pulse Ox O2 Delivery O2 Flow Rate FiO2 01/13/17 16:43 91 171/105 01/13/17 16:06 96.6 98 20 164/89 99 Room Air 01/13/17 16:00 81 01/13/17 14:00 91 96 91 01/13/17 12:26 81 01/13/17 12:02 98.1 79 20 157/89 97 Room Air 01/13/17 09:16 83 141/79 01/13/17 08:24 74 01/13/17 07:58 97.6 83 20 141/79 98 Room Air 01/13/17 04:00 65 01/13/17 04:00 97.5 72 18 151/75 98 Room Air 2.0 01/13/17 00:00 98.1 74 20 134/87 96 Room Air 2.0 01/13/17 00:00 70 01/13/17 00:00 74 82 81 01/12/17 20:00 98.1 74 16 138/92 100 Room Air 2.0 01/12/17 20:00 78 Intake and Output 01/13/17 01/14/17 19:00 07:00 Intake Total 1680 ml Balance 1680 ml Intake Oral 980 ml IV Total 700 ml # Voids 5 Laboratory Tests Test 01/13/17 16:10 White Blood Count 6.7 K/UL (4.8-10.8) Red Blood Count 4.74 M/UL (4.20-5.40) Hemoglobin 14.1 G/DL (12.0-16.0) Hematocrit 42.6 % (37.0-47.0) Mean Corpuscular Volume 90 FL (80-99) Mean Corpuscular Hemoglobin 29.8 PG (27.0-31.0) Mean Corpuscular Hemoglobin Concent 33.1 G/DL (32.0-36.0) Red Cell Distribution Width 11.4 % (11.6-14.8) L Platelet Count 230 K/UL (150-450) Mean Platelet Volume 7.3 FL (6.5-10.1) Neutrophils (%) (Auto) 56.1 % (45.0-75.0) Lymphocytes (%) (Auto) 35.1 % (20.0-45.0) Monocytes (%) (Auto) 6.1 % (1.0-10.0) Eosinophils (%) (Auto) 2.1 % (0.0-3.0) Basophils (%) (Auto) 0.6 % (0.0-2.0) Sodium Level 142 mEQ/L (135-145) Potassium Level 3.2 mEQ/L (3.4-4.9) L Chloride Level 101 mEQ/L (98-107) Carbon Dioxide Level 28 mEQ/L (20-30) Anion Gap 13 (5-15) Blood Urea Nitrogen 9 mg/dL (7-23) Creatinine 0.6 mg/dL (0.5-0.9) Estimat Glomerular Filtration Rate mL/min (>60) Glucose Level 129 mg/dL (74-106) H Calcium Level 8.9 mg/dL (8.6-10.2) Phosphorus Level 2.2 mg/dL (2.5-4.8) L Magnesium Level 1.4 mg/dL (1.7-2.5) L Laboratory Tests 01/13/17 16:10: White Blood Count 6.7, Red Blood Count 4.74, Hemoglobin 14.1, Hematocrit 42.6, Mean Corpuscular Volume 90, Mean Corpuscular Hemoglobin 29.8, Mean Corpuscular Hemoglobin Concent 33.1, Red Cell Distribution Width 11.4L, Platelet Count 230, Mean Platelet Volume 7.3, Neutrophils (%) (Auto) 56.1, Lymphocytes (%) (Auto) 35.1, Monocytes (%) (Auto) 6.1, Eosinophils (%) (Auto) 2.1, Basophils (%) (Auto ) 0.6, Sodium Level 142, Potassium Level 3.2L, Chloride Level 101, Carbon Dioxide Level 28, Anion Gap 13, Blood Urea Nitrogen 9, Creatinine 0.6, Estimat Glomerular Filtration Rate , Glucose Level 129H, Calcium Level 8.9, Phosphorus Level 2.2L, Magnesium Level 1.4L Height (Feet): 5 Height (Inches): 1.00 Weight (Pounds): 146 General Appearance: no apparent distress EENT: PERRL/EOMI Neck: non-tender, normal alignment Cardiovascular: normal peripheral pulses, normal rate, regular rhythm Respiratory/Chest: chest wall non-tender, lungs clear, normal breath sounds Abdomen: normal bowel sounds, non tender, soft Neurologic: manager diversity II-XII grossly normal, no motor/sensory deficits, alert, oriented x 3 Skin: normal pigmentation, warm/dry Brigid Jarvis N.P. Jan 13, 2017 19:23
--- NOTE | 2017-01-13 19:30 | Cardiology Report ---
APPROVED REPORT EXAM: Two-dimensional and M-mode echocardiogram with Doppler and color Doppler. INDICATION Syncope M-Mode DIMENSIONS IVSd1.3 (0.7-1.1cm)Left Atrium (MM)3.3 (1.6-4.0cm) LVDd2.9 (3.5-5.6cm)Aortic Root2.2 (2.0-3.7cm) PWd0.9 (0.7-1.1cm)Aortic Cusp Exc.1.6 (1.5-2.0cm) LVDs1.9 (2.5-4.0cm) PWs1.8 cm Normal left ventricular chamber size, systolic function and wall motion. Left ventricular ejection fraction estimated to be 60-65 %. Mild left ventricular hypertrophy by 2-D. Anterior Echo-free space, may be due to pericardial fat or effusion. All other cardiac chamber sizes are within normal limits. Focal aortic valve sclerosis with adequate cusp excursion. Thickened mitral valve leaflets with normal excursion. Mitral annulus and aortic root calcification. Pulmonic valve not well visualized. Normal tricuspid valve structure. IVC at normal size with physiologic collapse. A color flow and spectral Doppler study was performed and revealed: Trace aortic regurgitation. Mild mitral regurgitation. Mitral diastolic velocities suggest reduced left ventricular relaxation c/w mild LV diastolic dysfunction (Grade I). Trace tricuspid regurgitation. Tricuspid systolic velocities suggests peak right ventricular systolic pressure of 23 mmHg.
[2017-01-13 20:18] VITALS: BP 151/97
[2017-01-13] MEDS: Losartan 50mg tab ORAL SCH (20:52)
[2017-01-14] VITALS: BP 153/89
[2017-01-14 04:20] VITALS: BP 108/98
[2017-01-14 07:57] VITALS: BP 142/99
[2017-01-14 08:14] LABS: ANION GAP 12 (5-15); CALCIUM 9.3 mg/dL (8.6-10.2); CARBON DIOXIDE 30 mEQ/L (20-30); CHLORIDE 100 mEQ/L (98-107); CREATININE 0.7 mg/dL (0.5-0.9); HEMOLYSIS 2; MAGNESIUM 2.3 mg/dL (1.7-2.5); POTASSIUM 3.4 mEQ/L (3.4-4.9); SODIUM 142 mEQ/L (135-145)
--- NOTE | 2017-01-14 08:31 | Consultation ---
DATE OF CONSULTATION: 01/12/2017 CARDIOLOGY CONSULTATION CONSULTING PHYSICIAN: Bob Hsieh M.D. REFERRING PHYSICIAN: Maida Mcguire M.D. REASON FOR CONSULTATION: Chest pain. History Of Present Illness: The patient is a 71-year-old lady with history of hypertension, presented to the hospital with increasing dizziness and near syncope. She also has been vomiting several times. The patient also had epigastric pain and subsequently complained of chest pain. The patient was admitted and Cardiology consultation was obtained for further evaluation and management. In the emergency room, blood pressure was 131/62 with a pulse of 78 and respirations of 20. Past medical history: History of hypertension, but denies coronary artery disease, congestive heart failure, or atrial fibrillation. Social History: She lives at home. She does not smoke or drink alcohol. FAMILY HISTORY: Noncontributory. PHYSICAL EXAMINATION: Vital Signs: Blood pressure is 161/70, pulse 74, respirations 18, and temperature 98.1. NECK: Showed no JVD. LUNGS: Clear. CARDIOVASCULAR: Regular S1 and S2 with no gallop or murmur. ABDOMEN: Soft. EXTREMITIES: No pitting edema. Laboratory Data: White count is 10.8, hemoglobin 13.2, hematocrit 39, and platelet count of 216,000. Sodium 142, potassium 3.2, BUN of 22, creatinine 0.9, and glucose of 94. Initial creatinine was 1.6. Troponins are negative x2. Triglycerides 188. ASSESSMENT AND PLAN: 1. Atypical chest pain. This is likely secondary to gastrointestinal source as the patient has had recurrent vomiting. Denies any chest pain currently. The patient was already ruled out for myocardial infarction. Her telemetry strips showed no cardiac arrhythmia and echocardiogram showed normal left ventricular systolic function with ejection fraction of 60% to 65%. We will proceed with nuclear stress test for further evaluation. 2. Hypertension. Blood pressure currently stable. Hold off on antihypertensives with normal ejection fraction. We will proceed with nuclear stress test for further evaluation. 3. Hypertension. On admission, creatinine was 1.6. Hold off on her LAUREN-inhibitor. We will start the patient on Norvasc 5 mg daily. 4. Hypokalemia. Potassium will be replaced. . Creatinine was 0.6 and back to 0.9. 5. Abdominal pain, nausea, and vomiting. Further evaluation by Gastroenterology. 6. Fibromyalgia. Thank you very much, Dr. Mcguire, for allowing me to participate in the care of this patient. Please do not hesitate to contact if you have any questions regarding my evaluation. Case was discussed with the patient's nurse at the bedside. Bob Hsieh M.D. DR: Ivana JOB#: [id number] CC:
[2017-01-14] MEDS ORDERED: Losartan 50mg tab ORAL SCH ×2 (09:00)
[2017-01-14] MEDS: Losartan 50mg tab ORAL SCH (09:00)
[2017-01-14] MEDS: Heparin 5000 units/ml inj SUBQ SCH ×2 (09:00→20:35)
[2017-01-14] MEDS: Aspirin Baby 81mg ORAL SCH (10:06)
[2017-01-14] MEDS: Pantoprazole Inj IV SCH (10:07)
[2017-01-14] MEDS: Docusate 100mg cap ORAL SCH ×2 (10:07→20:32)
[2017-01-14] MEDS: DULoxetine 30mg cap ORAL SCH (10:07)
[2017-01-14] MEDS ORDERED: NS 275ml ONE (10:12)
[2017-01-14] MEDS ORDERED: Tubing IV Secondary IV ONE (10:12)
[2017-01-14 11:53] VITALS: BP 133/72
[2017-01-14] MEDS ORDERED: Flu Vaccine Quadrivalent 0.5ml IM ONE (12:30)
[2017-01-14] MEDS ORDERED: Adenosine Inj IVP ONE (12:45)
--- NOTE | 2017-01-14 12:56 | Diagnostic Imaging Report ---
APPROVED REPORT CPT Code: 29152 Vascular Symptoms Dizziness and Vertigo CAROTID (BILATERAL) - Imaging reveals no significant plaque within the right and left extracranial carotid arteries. The Doppler spectral flow analysis is within normal limits throughout the extracranial carotid arteries bilaterally. VERTEBRAL- The vertebral arteries are within normal limits.
--- NOTE | 2017-01-14 13:47 | Cardiac Electrophysiology PN ---
Assessment/Plan Assessment/Plan 1. Atypical chest pain. Likely due to gastrointestinal source as the patient has had recurrent vomiting. Denies any chest pain currently. The patient was already ruled out for myocardial infarction. Her telemetry strips showed no cardiac arrhythmia and echocardiogram showed normal left ventricular systolic function with ejection fraction of 60% to 65%. We will proceed with nuclear stress test today. 2. Hypertension. Losartan 50 and Norvasc 5 daily. 3. Hypokalemia. Replaced 4. Abdominal pain, nausea, and vomiting. Further evaluation by Gastroenterology. 5. Fibromyalgia. Subjective Subjective Comfortable awaiting nuclear stress test today. Objective Last 24 Hour Vital Signs Date Time Temp Pulse Resp B/P (MAP) Pulse Ox O2 Delivery O2 Flow Rate FiO2 01/14/17 11:53 98.1 77 18 133/72 95 Room Air 01/14/17 08:00 65 01/14/17 07:57 97.0 70 18 142/99 98 Room Air 01/14/17 06:28 78 83 94 01/14/17 04:20 97.5 73 20 108/98 73 Room Air 01/14/17 04:00 69 01/14/17 00:00 97.5 77 20 153/89 96 Room Air 01/14/17 00:00 75 01/13/17 22:00 77 99 99 01/13/17 21:00 101 01/13/17 20:52 151/81 01/13/17 20:18 97.5 81 20 151/97 100 Room Air 01/13/17 16:43 91 171/105 01/13/17 16:06 96.6 98 20 164/89 99 Room Air 01/13/17 16:00 81 01/13/17 14:00 91 96 91 Intake and Output 01/14/17 01/15/17 19:00 07:00 Intake Total 120 ml Balance 120 ml Intake Oral 120 ml Laboratory Tests Test 01/13/17 16:10 01/14/17 06:45 White Blood Count 6.7 K/UL (4.8-10.8) Red Blood Count 4.74 M/UL (4.20-5.40) Hemoglobin 14.1 G/DL (12.0-16.0) Hematocrit 42.6 % (37.0-47.0) Mean Corpuscular Volume 90 FL (80-99) Mean Corpuscular Hemoglobin 29.8 PG (27.0-31.0) Mean Corpuscular Hemoglobin Concent 33.1 G/DL (32.0-36.0) Red Cell Distribution Width 11.4 % (11.6-14.8) L Platelet Count 230 K/UL (150-450) Mean Platelet Volume 7.3 FL (6.5-10.1) Neutrophils (%) (Auto) 56.1 % (45.0-75.0) Lymphocytes (%) (Auto) 35.1 % (20.0-45.0) Monocytes (%) (Auto) 6.1 % (1.0-10.0) Eosinophils (%) (Auto) 2.1 % (0.0-3.0) Basophils (%) (Auto) 0.6 % (0.0-2.0) Sodium Level 142 mEQ/L (135-145) 142 mEQ/L (135-145) Potassium Level 3.2 mEQ/L (3.4-4.9) L 3.4 mEQ/L (3.4-4.9) Chloride Level 101 mEQ/L (98-107) 100 mEQ/L (98-107) Carbon Dioxide Level 28 mEQ/L (20-30) 30 mEQ/L (20-30) Anion Gap 13 (5-15) 12 (5-15) Blood Urea Nitrogen 9 mg/dL (7-23) 11 mg/dL (7-23) Creatinine 0.6 mg/dL (0.5-0.9) 0.7 mg/dL (0.5-0.9) Estimat Glomerular Filtration Rate mL/min (>60) mL/min (>60) Glucose Level 129 mg/dL (74-106) H 105 mg/dL (74-106) Calcium Level 8.9 mg/dL (8.6-10.2) 9.3 mg/dL (8.6-10.2) Phosphorus Level 2.2 mg/dL (2.5-4.8) L Magnesium Level 1.4 mg/dL (1.7-2.5) L 2.3 mg/dL (1.7-2.5) Microbiology Date/Time Source Procedure Growth Status 01/12/17 00:00 Nasal Nares Right MRSA Culture - Final NO METHICILLIN RESISTANT STAPH AUREUS... Complete 01/12/17 01:15 Stool Clostridium difficile Toxin Assay - Final Complete 01/12/17 00:00 Rectal Mucosa VRE Culture - Final NO VANCOMYCIN RESISTANT ENTEROCOCCUS ... Complete Objective temperature 98.1. NECK: Showed no JVD. LUNGS: Clear. CARDIOVASCULAR: Regular S1 and S2 with no gallop or murmur. ABDOMEN: Soft. EXTREMITIES: No pitting edema. DEBBIE RUBIO Jan 14, 2017 13:47
[2017-01-14 15:42] VITALS: BP 136/82
--- NOTE | 2017-01-14 16:28 | Diagnostic Imaging Report ---
Indication: chest pain Technique: The study was conducted under the supervision of a visual designer. Adenosine infusion followed by intravenous administration of 30.3 mCi of technetium 99m Myoview was performed. Three plane SPECT imaging of the heart was then performed. A resting study was performed as part of the one-day protocol with 10 mCi of technetium 99m myoview injected intravenously at that time. Three plane SPECT imaging of the heart was obtained. Comparison: None Clinical data: 1. Clinical response: Non ischemic 2. Electrocardiographic response: Non ischemic Findings: The myocardial perfusion scan demonstrates no fixed or reversible perfusion defects. Left jugular ejection fraction estimated at 83%. Impression: Negative myocardial perfusion scan
--- NOTE | 2017-01-14 16:28 | General Progress Note ---
Assessment/Plan Problem List: (1) Syncope ICD Codes: R55 - Syncope and collapse SNOMED: 018647934 (2) Hypotension ICD Codes: I95.9 - Hypotension, unspecified SNOMED: 84878394 (3) SOLOMON (acute kidney injury) ICD Codes: N17.9 - Acute kidney failure, unspecified SNOMED: 66428222 (4) Hypokalemia ICD Codes: E87.6 - Hypokalemia SNOMED: 88849086 (5) Abd pain, nausea/emesis, diarrhea (6) Generalized weakness ICD Codes: R53.1 - Weakness SNOMED: 51665021 Status: stable Assessment/Plan Syncope appears to be vasovagal vs orthostatic hypotension in setting of dehydration given nausea/emesis but will r/o cardiac etiology Pt possibly has viral gastroenteritis given abd pain, nausea/vomiting, diarrhea Trop neg x 3, EKG w/o changes TTE showing 60-65% EF with LVH Carotid duplex unremarkable Cardiology consulted. Appreciate recs Nuc stress test planned for today D/c IVFs Cont losartan 50mg PO daily Replete lytes prn Trend BMP If diarrhea, recurs consider getting stool studies. C. diff negative Pain control, nausea control Supportive care PT/OT eval SW/CM consulted for SNF/rehab placement DVT Prophylaxis: SCD, HSQ Code Status: Full Hospital Classification Declaration: Based on this initial evaluation, and depending on the patient's clinical course, I anticipate that this patient will require hospitalization for 1-2 days for syncope, ischemic eval, generalized weakness and close respiratory/hemodynamic monitoring. Disposition: Once the patient is stable to leave the hospital, I anticipate the patient will likely be discharged to the following environment: SNF I spent 40 minutes on this patient's case, and 22 minutes were dedicated to counseling and/or care coordination. Discussed with patient/family, nursing staff, SW/CM, cardiology regarding clinical status, treatment course, and disposition planning. Time of note may not reflect time of encounter. Subjective Date patient seen: Jan 14, 2017 Time patient seen: 16:25 ROS Limited/Unobtainable: No Constitutional: Reports: no symptoms HEENT: Reports: no symptoms Cardiovascular: Reports: no symptoms Respiratory: Reports: no symptoms Gastrointestinal/Abdominal: Reports: no symptoms Genitourinary: Reports: no symptoms Neurologic/Psychiatric: Reports: no symptoms Endocrine: Reports: no symptoms Hematologic/Lymphatic: Reports: no symptoms Allergies: Coded Allergies: IODINE (Verified Allergy, Unknown, 01/22/16) Uncoded Allergies: ANTIBIOTICS (Allergy, Unknown, 08/14/16) PT. STATE SHE CAN ONLY TAKE SULFA DRUGS. All Systems: reviewed and negative except above Subjective No acute o/n events Awaiting nuc stress test Pt states currently homeless and son lives in car. She c/o weakness and would like to go to a short-term rehab Denies f/c, n/v, d/c, chest pain, SOB Objective Last 24 Hour Vital Signs Date Time Temp Pulse Resp B/P (MAP) Pulse Ox O2 Delivery O2 Flow Rate FiO2 01/14/17 15:42 97.9 74 18 136/82 96 Room Air 01/14/17 14:00 75 97 91 01/14/17 12:00 69 01/14/17 11:53 98.1 77 18 133/72 95 Room Air 01/14/17 08:00 65 01/14/17 07:57 97.0 70 18 142/99 98 Room Air 01/14/17 06:28 78 83 94 01/14/17 04:20 97.5 73 20 108/98 73 Room Air 01/14/17 04:00 69 01/14/17 00:00 97.5 77 20 153/89 96 Room Air 01/14/17 00:00 75 01/13/17 22:00 77 99 99 01/13/17 21:00 101 01/13/17 20:52 151/81 01/13/17 20:18 97.5 81 20 151/97 100 Room Air 01/13/17 16:43 91 171/105 Intake and Output 01/14/17 01/15/17 19:00 07:00 Intake Total 240 ml Balance 240 ml Intake Oral 240 ml # Voids 2 Laboratory Tests 01/14/17 06:45: Sodium Level 142, Potassium Level 3.4, Chloride Level 100, Carbon Dioxide Level 30, Anion Gap 12, Blood Urea Nitrogen 11, Creatinine 0.7, Estimat Glomerular Filtration Rate , Glucose Level 105, Calcium Level 9.3, Magnesium Level 2.3 Height (Feet): 5 Height (Inches): 1.00 Weight (Pounds): 146 Objective General: alert, cooperative, no distress, appears stated age Head: normocephalic, without obvious abnormality, atraumatic Eyes: conjunctivae/corneas clear. PERRL, EOM's intact Throat: lips, mucosa, and tongue normal. MMM Neck: supple, symmetrical, trachea midline, and no JVD Lungs: clear to auscultation bilaterally Heart: regular rate and rhythm, S1, S2 normal, no murmur, click, rub or gallop Abdomen: soft, non-tender, non-distended, bowel sounds normal; no masses or organomegaly Extremities: extremities normal, atraumatic, no cyanosis or edema Pulses: 2+ and symmetric Skin: skin color, texture, turgor normal; no rashes or lesions Neurologic: grossly normal, no focal deficits Dayna Manning M.D. Jan 14, 2017 16:28
[2017-01-14 20:00] VITALS: BP 154/87
[2017-01-15] VITALS: BP 144/94
[2017-01-15 04:00] VITALS: BP 136/90
[2017-01-15 08:37] VITALS: BP 131/77
[2017-01-15] MEDS: DULoxetine 30mg cap ORAL SCH (08:39)
[2017-01-15] MEDS: Docusate 100mg cap ORAL SCH (08:39)
[2017-01-15] MEDS: Losartan 50mg tab ORAL SCH (08:39)
[2017-01-15] MEDS: Pantoprazole Inj IV SCH (08:41)
[2017-01-15] MEDS: Aspirin Baby 81mg ORAL SCH (08:42)
[2017-01-15] MEDS: Heparin 5000 units/ml inj SUBQ SCH (08:46)
[2017-01-15 12:28] VITALS: BP 129/86
--- NOTE | 2017-01-15 19:17 | Discharge Summary ---
Discharge Summary Hospital Course Date of Admission Jan 11, 2017 at 18:52 Date of Discharge Jan 15, 2017 at 15:50 Admitting Diagnosis syncope, hypotension HPI Khris Taveras is a 71 year old female who was admitted on Jan 11, 2017 at 18 :52 for Syncope, Hypotension Discharge Discharge Disposition Patient was discharged to SNF/Subacute Facility(03) Discharge Diagnoses: Dayna Manning M.D. Jan 15, 2017 19:17
--- NOTE | 2017-01-21 15:15 | Discharge Summary ---
Discharge Summary Hospital Course Date of Admission Jan 11, 2017 at 18:52 Date of Discharge Jan 15, 2017 at 15:50 Admitting Diagnosis syncope, hypotension Reason for Hospitalization: syncope, hypotension HPI 71y/o female with pmh of fibromylagia, HTN who presents after syncopal episode. Per son, pt had episode of dizziness and near syncope. She c/o epigastric pain and nausea at the time after eating. No reports of chest pain, SOB, f/c, n/v, abd pain at the time. Then in triage, pt had episode of syncope after nb/nb emesis x 1. Pt also notes episode of diarrhea yesterday, but none today. In ED, pt noted to be hypotensive and given IVFs with good response. Labs notable for SOLOMON. Consultations Cardiology Hospital Course Pt was admitted to tele and ruled out for ACS with serial trop/EKG. TTE showed normal EF. Pt was treated w/ IVFs and BP normalized. SOLOMON also improved. Electrolytes were repleted. Pt w/ likely viral illness. Given generalized weakness, PT/OT was consulted who recommended SNF. Discharge Physical Exam General: alert, cooperative, no distress, appears stated age Head: normocephalic, without obvious abnormality, atraumatic Eyes: conjunctivae/corneas clear. PERRL, EOM's intact Throat: lips, mucosa, and tongue normal. MMM Neck: supple, symmetrical, trachea midline, and no JVD Lungs: clear to auscultation bilaterally Heart: regular rate and rhythm, S1, S2 normal, no murmur, click, rub or gallop Abdomen: soft, non-tender, non-distended, bowel sounds normal; no masses or organomegaly Extremities: extremities normal, atraumatic, no cyanosis or edema Pulses: 2+ and symmetric Skin: skin color, texture, turgor normal; no rashes or lesions Neurologic: grossly normal, no focal deficits Discharge Medications Continued Medications: Duloxetine Hcl* (Cymbalta*) 60 Mg Capsule.dr 120 MG ORAL DAILY, CAP Gabapentin* (Gabapentin*) 800 Mg Tablet 1600 MG ORAL BID, TAB Losartan Potassium* (Losartan Potassium*) 50 Mg Tablet Unknown Dose ORAL DAILY, TAB Discharge Discharge Disposition Patient was discharged to SNF/Subacute Facility(03) Discharge Diagnoses: (1) Pre-syncope (2) Hypotension (3) Hypokalemia (4) Hyponatremia (5) Hypomagnesemia (6) Generalized weakness Dayna Manning M.D. Jan 21, 2017 15:15
--- NOTE | 2017-02-03 17:40 | Cardiology Report ---
APPROVED REPORT EKG Measurement Heart [id number] ME 138P55 [id number] Normal sinus rhythm Normal ECG
--- NOTE | 2017-02-03 17:48 | Cardiology Report ---
APPROVED REPORT EKG Measurement Heart [id number] MT 138P50 [id number] Sinus rhythm with premature atrial complexes Otherwise normal ECG
== END 2017-01-15 15:50 | DRG 315 ==
LOC: EDBEDREQ 18:22 → EMR 18:50 → 2W 18:52 → EDBEDREQ 20:33 → EDBEDREQSVC 21:40 → EDBEDREQ 21:40 → 2E 22:03
DX: I95.9 Hypotension, unspecified (principal); N17.9 Acute kidney failure, unspecified; E83.42 Hypomagnesemia; E87.1 Hypo-osmolality and hyponatremia; E86.0 Dehydration; R55 Syncope and collapse; E87.6 Hypokalemia; I10 Essential (primary) hypertension; M79.7 Fibromyalgia; Z23 Encounter for immunization; R07.89 Other chest pain; A08.4 Viral intestinal infection, unspecified
CPT/HCPCS: 36415; 70450; 71010; 74176; 78452; 80048; 80053; 80061; 80300; 81003; 82550; 82553; 82962; 83036; 83735; 83880; 84100; 84443; 84484; 85025; 87081; 87324; 90630; 93005; 93017; 93306; 93880; 99285; J2405; J8499

== ENCOUNTER 2017-02-24 17:40 | Emergency (ER) | payer MEDICARE ==
[~2017-02-24] VITALS: Ht 154.9 cm; Wt 59.0 kg
[~2017-02-24 17:40] MED LIST changes: +GABAPENTIN800 MG ORAL; +LOSARTAN POTASS50 MG ORAL
--- NOTE | 2017-02-24 18:27 | Emergency Room Report ---
History of Present Illness General Chief Complaint: Lower Back Pain or Injury Source: Patient Present Illness HPI 71 YO Female presents to the ED C/o 11/22 in severity spasm pain from the muscles of the upper right side of her back x 2 days. Pt. reports hx of previous symptoms and was d/x'd with a pinched nerve ultimately causing her symptoms after imaging was performed. pt. denies changes in the character of her pain from previous episodes, pt. denies N/V, fevers, chills, trauma or fall. pt. reports intermittent tingling sensation in the right arm. denies muscular weakness. pt. denies cough, SOB, abdominal pain. Denies numbness tingling or loss of sensation or gross motor movements of the extremities, incontinence of bowel or bladder. Denies CP, Palpitations, LOC, AMS, dizziness, Changes in Vision, Sensation, or a sudden severe headache. Denies hx of recent spinal procedures, night sweats or hx of cancer. Allergies: Coded Allergies: IODINE (Verified Allergy, Unknown, 01/22/16) Uncoded Allergies: ANTIBIOTICS (Allergy, Unknown, 08/14/16) PT. STATE SHE CAN ONLY TAKE SULFA DRUGS. Patient History Past Medical History: see triage record, HTN Past Surgical History: none Pertinent Family History: none Now: No Reviewed Nursing Documentation: PMH: Agreed, PSxH: Agreed Nursing Documentation-PMH Hx Hypertension: Yes Hx Cancer: No Hx Neurological Problems: No Hx Dizziness: Yes Hx Syncope: Yes Review of Systems All Other Systems: negative except mentioned in HPI Physical Exam Vital Signs Date Time Temp Pulse Resp B/P (MAP) Pulse Ox O2 Delivery O2 Flow Rate FiO2 02/24/17 17:54 97.9 91 16 133/92 97 Room Air Sp02 EP Interpretation: reviewed, normal General Appearance: no apparent distress, alert, GCS 15, non-toxic Head: normocephalic, atraumatic Eyes: bilateral eye normal inspection, bilateral eye PERRL ENT: hearing grossly normal, normal voice Neck: full range of motion, no meningismus, no bony tend Respiratory: chest non-tender, lungs clear, normal breath sounds, speaking full sentences Cardiovascular #1: regular rate, rhythm, normal capillary refill Cardiovascular #2: 2+ radial (R), 2+ radial (L) Gastrointestinal: normal bowel sounds, non tender, soft, no guarding, no pulsatile mass, no rebound Rectal: deferred Genitourinary: normal inspection, no CVA tenderness Musculoskeletal: back normal, gait/station normal, normal range of motion, tender - mild right sided trapezius and thoracic paraspinal ttp, no midline or left sided ttp, no obvious deformity, erythema, bruises, or masses. FROM . Neurologic: alert, oriented x3, responsive, motor strength/tone normal, sensory intact, normal gait, speech normal, grossly normal Skin: normal color, no rash, warm/dry, well hydrated Lymphatic: no adenopathy Medical Decision Making PA Attestation Dr. Hwang is my supervising Physician whom patient management has been discussed with. Diagnostic Impression: Primary Impression: Spasm of back muscles ER Course 71 YO Female presents to the ED C/o 11/22 in severity spasm pain from the muscles of the upper right side of her back x 2 days. Pt. reports hx of previous symptoms and was d/x'd with a pinched nerve ultimately causing her symptoms after imaging was performed. pt. denies changes in the character of her pain from previous episodes, pt. denies N/V, fevers, chills, trauma or fall. pt. reports intermittent tingling sensation in the right arm. denies muscular weakness. pt. denies cough, SOB, abdominal pain. Denies numbness tingling or loss of sensation or gross motor movements of the extremities, incontinence of bowel or bladder. Denies CP, Palpitations, LOC, AMS, dizziness, Changes in Vision, Sensation, or a sudden severe headache. Denies hx of recent spinal procedures, night sweats or hx of cancer. Ddx considered but are not limited to Fracture, dislocation, contusion, epidural abscess, Sprain/Strain/Spasm, aortic dissection, radiculopathy just to name a few. Vital signs: are WNL, pt. is afebrile, non-toxic in appearance. H&PE are most consistent with muscle spasm with no changes in character from previous episodes that have been fully evaluated with imaging studies. ORDERS: none required at this time. ED INTERVENTIONS: none required at this time. -d/w pt. conservative treatment, and to follow up with a primary care provider. pt given a list of primary care clinics for follow up. d/w pt. to return to the ED with worsening or new symptoms. -Pt. reports recently becoming homeless and having to live out of her vehicle with her . pt. was given a list of transitional housing resources, free /reduced cost healthcare clinics, and homeless resource packet. DISCHARGE: At this time pt. is stable for d/c to home. Will provide printed patient care instructions, and any necessary prescriptions. Care plan and follow up instructions have been discussed with the patient prior to discharge. Last Vital Signs Date Time Temp Pulse Resp B/P (MAP) Pulse Ox O2 Delivery O2 Flow Rate FiO2 02/24/17 17:54 97.9 91 16 133/92 97 Room Air Disposition: HOME, SELF-CARE Condition: Stable Scripts Methocarbamol* (ROBAXIN-750*) 750 Mg Tablet 750 MG PO TID for 7 Days, #21 TAB 0 Refills Prov: Elvia Salazar 02/24/17 Patient Instructions: Back Pain, Adult Additional Instructions: Take medications as directed. Follow up with a Primary Care Provider in 3-5 days, even if your symptoms have resolved. --Please review list of primary care clinics, if you do not already have a primary care provider Return sooner to ED if new symptoms occur, or current symptoms become worse. Do not drink alcohol, drive, or operate heavy machinery while taking Muscle Relaxer as this may cause drowsiness. - Please note that this Emergency Department Report was dictated using mang[employer]sham[employer] smith technology software, occasionally this can lead to erroneous entry secondary to interpretation by the dictation equipment. Elvia Salazar Feb 24, 2017 18:27
[2017-02-24] MEDS ORDERED: ROBAXIN-750750 MG PO (18:31)
[2017-02-24 18:46] VITALS: BP 133/83
== END 2017-02-24 18:50 | disposition home or self-care (01) ==
LOC: EMR 18:12
DX: M62.830 Muscle spasm of back (principal); I10 Essential (primary) hypertension
CPT/HCPCS: 99283

== ENCOUNTER 2017-03-04 00:09 | Emergency (ER) | payer MEDICARE ==
[~2017-03-04] VITALS: Ht 154.9 cm; Wt 57.6 kg
[~2017-03-04 00:09] MED LIST changes: +ROBAXIN-750750 MG PO
[2017-03-04] MEDS ORDERED: Methocarbamol 750mg tab ORAL ONE (00:30)
[2017-03-04] MEDS ORDERED: Ketorolac 60mg Inj IM ONE (00:30)
[2017-03-04 00:32] VITALS: BP 146/82
[2017-03-04] MEDS ORDERED: ACETAMINOPHEN-1 EAC1 ORAL (01:02)
[2017-03-04] MEDS ORDERED: IBUPROFEN600 MG ORAL (01:02)
[2017-03-04 01:18] VITALS: BP 146/82
--- NOTE | 2017-03-04 06:21 | Emergency Room Report ---
History of Present Illness General Chief Complaint: Back Pain-No Injury Source: Patient, Medical Record Present Illness HPI Patient presents with complaints of right back pain Patient points to her rib cage mid clavicular posteriorly at approximately 2 ribs below the scapular region Patient denies any chest pain or shortness of breath Denies any vomiting She reports that she was given muscle relaxants which helped a little bit Denies any other trauma she does report that she had a mild cough and wasn't sure if this exacerbated the situation Denies any midline back pain patient reports that she has neck problems and is due for consultation for that Allergies: Coded Allergies: IODINE (Verified Allergy, Unknown, 01/22/16) Uncoded Allergies: ANTIBIOTICS (Allergy, Unknown, 08/14/16) PT. STATE SHE CAN ONLY TAKE SULFA DRUGS. Patient History Past Medical History: see triage record Pertinent Family History: none Last Menstrual Period: none Now: No : 1 Para: 1 Reviewed Nursing Documentation: PMH: Agreed, PSxH: Agreed Nursing Documentation-PMH Hx Hypertension: Yes Hx Cancer: No Hx Neurological Problems: No Hx Dizziness: Yes Hx Syncope: Yes Review of Systems All Other Systems: negative except mentioned in HPI Physical Exam Vital Signs Date Time Temp Pulse Resp B/P (MAP) Pulse Ox O2 Delivery O2 Flow Rate FiO2 03/04/17 00:22 98.4 76 15 146/82 98 Room Air Sp02 EP Interpretation: reviewed, normal General Appearance: well appearing, no apparent distress Head: normocephalic, atraumatic Eyes: bilateral eye PERRL, bilateral eye EOMI ENT: hearing grossly normal, normal pharynx Neck: full range of motion, supple Respiratory: lungs clear, normal breath sounds Cardiovascular #1: regular rate, rhythm, no edema Gastrointestinal: non tender, soft Genitourinary: no CVA tenderness Musculoskeletal: other - Tender palpation between the ribs just both scapula midline, fairly specific discomfort no obvious rash a dermatomal findings Neurologic: alert, oriented x3, responsive Skin: no rash Lymphatic: no adenopathy Medical Decision Making Diagnostic Impression: Primary Impression: Back pain Additional Impression: rib pain ER Course Patient has had fairly extensive workup recently I did perform EKG to rule out any obvious cardiac pathology Which was normal Patient's exam is fairly specific She was provided with pain medicine has done better And requires close followup EKG Diagnostic Results Rate: normal Rhythm: NSR ST Segments: no acute changes Rhythm Strip Diag. Results EP Interpretation: yes Rate: 66 Rhythm: NSR, no PVC's, no ectopy Last Vital Signs Date Time Temp Pulse Resp B/P (MAP) Pulse Ox O2 Delivery O2 Flow Rate FiO2 03/04/17 01:18 98.4 15 146/82 98 Room Air 03/04/17 00:22 76 Status: improved Disposition: HOME, SELF-CARE Condition: Improved Scripts Ibuprofen* (MOTRIN*) 600 Mg Tablet 600 MG ORAL Q8H Y for For Pain, #20 TAB 0 Refills Prov: MELBA NICOLE D.O. 03/04/17 Acetaminophen With Codeine (T#3) (TYLENOL #3 TAB*) Y Tab 1 TAB ORAL Q8H Y for For Pain, #10 TAB Prov: MELBA NICOLE D.O. 03/04/17 Referrals: NON PHYSICIAN (PCP) Patient Instructions: Costochondritis, [id number], Back Pain, Adult Additional Instructions: Patient is provided with the discharge instructions notified to follow up with primary doctor in the next 2-3 days otherwise return to the er with any worsening symptoms. Please note that this report is being documented using [employer] technology. This can lead to erroneous entry secondary to incorrect interpretation by the dictating instrument. MELBA NICOLE D.O. Mar 04, 2017 06:21
--- NOTE | 2017-03-04 17:58 | Cardiology Report ---
APPROVED REPORT EKG Measurement Heart [id number] SD 150P60 [id number] Normal sinus rhythm Normal ECG
== END 2017-03-04 01:17 | disposition home or self-care (01) ==
LOC: EMR 00:47
DX: M54.9 Dorsalgia, unspecified (principal); R42 Dizziness and giddiness; R07.81 Pleurodynia; R55 Syncope and collapse; I10 Essential (primary) hypertension; Z88.8 Allergy status to other drugs, medicaments and biological substances; Z88.1 Allergy status to other antibiotic agents
CPT/HCPCS: 93005; 96372; 99284

== ENCOUNTER 2017-05-08 09:37 | Emergency (ER) | payer MEDICARE ==
[~2017-05-08] VITALS: Ht 152.4 cm; Wt 59.0 kg
[~2017-05-08 09:37] MED LIST changes: +ACETAMINOPHEN-1 EAC1 ORAL
--- NOTE | 2017-05-08 10:52 | Diagnostic Imaging Report ---
Indications: Fall, trauma, right facial injury Technique: Spiral acquisitions obtained through the brain. Angled axial and coronal 5 x 5 mm slices were reconstructed. Total dose length product 1410.48 mGycm. CTDI vol(s) 70.38 mGy. Dose reduction achieved using automated exposure control Comparison: 01/11/2017 Findings: Again demonstrated is an area of encephalomalacia in the right posterior parietal lobe. No acute intracranial hemorrhage or edema, mass effect, nor midline shift. There is generalized age-related enlargement of the ventricles and extra-axial CSF spaces. There is periventricular deep white matter low-attenuation consistent with chronic ischemic change. 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 Otherwise normal ayala-white differentiation. Visualized orbits and sinuses are unremarkable. Intact calvarium. No significant interim change. Previously questioned pontine low-attenuation areas are less evident currently, probably artifactual Impression: Chronic and age-related changes Negative for acute intracranial bleed or mass effect The CT scanner at [facility] is accredited by the [employer] and the scans are performed using protocols designed to limit radiation exposure to as low as reasonably achievable to attain images of sufficient resolution adequate for diagnostic evaluation.
[2017-05-08] MEDS ORDERED: IBUPROFEN600 MG ORAL (11:08)
[2017-05-08 11:10] VITALS: BP 99/70
[2017-05-08 11:20] VITALS: BP 99/70
--- NOTE | 2017-05-08 12:48 | Diagnostic Imaging Report ---
Indication: Reason For Exam: PAIN Technique: 3 views right hand Comparison: none Findings: No acute fractures. No dislocations. There is degenerative narrowing of the second through fifth distal interphalangeal joints, too slight extent the second through fifth proximal interphalangeal joints, as well as the first carpometacarpal joint. A cyst is seen within the scaphoid. The bones are osteoporotic. Impression: No acute bony trauma Degenerative changes, as described Cyst in the scaphoid, likely an intraosseous ganglion Osteoporosis
--- NOTE | 2017-05-10 13:39 | Emergency Room Report ---
History of Present Illness General Chief Complaint: General Complaint Present Illness HPI Patient is a 71-year-old female presented after having recently witnessed a mentally traumatizing event. Patient states that she had seen a young lady commit suicide and had been upset about the situation. She denies thoughts of harming herself. She denies any intrusive thoughts. She denies any auditory or visual hallucinations. The patient reported having a recent fall and stated that she had some pain to the right side of her face as well as to her hand. She denied any nausea or vomiting. She denied any weakness Allergies: Coded Allergies: IODINE (Verified Allergy, Unknown, 01/22/16) Uncoded Allergies: ANTIBIOTICS (Allergy, Unknown, 08/14/16) PT. STATE SHE CAN ONLY TAKE SULFA DRUGS. Patient History Past Medical History: see triage record Now: No Reviewed Nursing Documentation: PMH: Agreed, PSxH: Agreed Nursing Documentation-PMH Hx Hypertension: Yes Hx Cancer: No Hx Neurological Problems: No Hx Dizziness: Yes Hx Syncope: Yes Review of Systems All Other Systems: negative except mentioned in HPI Physical Exam Vital Signs Date Time Temp Pulse Resp B/P (MAP) Pulse Ox O2 Delivery O2 Flow Rate FiO2 05/08/17 09:44 98.2 118 20 201/105 99 Room Air General Appearance: well appearing, no apparent distress, alert, GCS 15 Head: normocephalic, atraumatic ENT: hearing grossly normal, normal voice Neck: full range of motion, supple Respiratory: no respiratory distress, speaking full sentences Musculoskeletal: no calf tenderness Neurologic: normal inspection, alert, responsive, normal gait Psychiatric: normal inspection, judgement/insight normal, mood/affect normal Skin: no rash, abrasions - right side of face Medical Decision Making Diagnostic Impression: Primary Impression: Head contusion Additional Impression: Hand contusion ER Course Patient presented for head injury. Differential diagnosis included was not limited to neck fracture, CVA, close head injury, syncopal episode, basilar ischemia. Patient has a benign exam and does not appear to require any laboratory testing at this time. A CT imaging of the head was ordered due to patient's age. CT the head read by radiology showed atrophic changes without fracture or intracranial hemorrhage. Patient was given mental health referrals. The patient is advised to follow up with primary care doctor in 1- 2 days. Patient is advised to return if any worsening condition or if any changes in status that are concerning. This report is dictated with [employer] special education instructor software which may occasionally lead to discrepancies related to use of this software. Last Vital Signs Date Time Temp Pulse Resp B/P (MAP) Pulse Ox O2 Delivery O2 Flow Rate FiO2 05/08/17 11:20 102 16 99/70 98 Room Air 05/08/17 11:10 98.4 Status: improved Disposition: HOME, SELF-CARE Condition: Stable Scripts Ibuprofen* (MOTRIN*) 600 Mg Tablet 600 MG ORAL Q8H Y for For Pain, #30 TAB 0 Refills Prov: Edgardo Huber 05/08/17 Patient Instructions: Contusion Edgardo Huber May 10, 2017 13:39
== END 2017-05-08 11:24 | disposition home or self-care (01) ==
LOC: EMR 10:17
DX: S00.83XA Contusion of other part of head, initial encounter (principal); S60.221A Contusion of right hand, initial encounter; W19.XXXA Unspecified fall, initial encounter; Y92.9 Unspecified place or not applicable; I10 Essential (primary) hypertension; Z88.1 Allergy status to other antibiotic agents; Z88.8 Allergy status to other drugs, medicaments and biological substances
CPT/HCPCS: 70450; 99284

== ENCOUNTER 2017-05-08 18:39 | Emergency (ER) | payer MEDICARE ==
[~2017-05-08] VITALS: Ht 152.4 cm; Wt 61.2 kg
[2017-05-08 19:15] VITALS: BP 207/121
[2017-05-08] MEDS ORDERED: cloNIDine 0.2mg Tab ORAL ONE (19:30)
--- NOTE | 2017-05-08 19:33 | Emergency Room Report ---
History of Present Illness General Chief Complaint: Hypertension Present Illness HPI Patient is a 71-year-old female who presents today with complaints of elevated blood pressure. Patient states that she isn't very symptomatic for the past 2 days and they have caused her blood pressure to elevate. She states she currently is unsure where her son is that he recently had a car accident and she thinks "something bad happen to him." She denies any headache, blurred vision, double vision associated symptoms. She has a history of hypokalemia and states she is having cramping in her feet. She denies any chest pain, shortness of breath, nausea, vomiting or associated symptoms. Allergies: Coded Allergies: IODINE (Verified Allergy, Unknown, 01/22/16) Uncoded Allergies: ANTIBIOTICS (Allergy, Unknown, 08/14/16) PT. STATE SHE CAN ONLY TAKE SULFA DRUGS. Patient History Reviewed Nursing Documentation: PMH: Agreed, PSxH: Agreed Nursing Documentation-PMH Hx Hypertension: Yes Hx Cancer: No Hx Neurological Problems: No Hx Dizziness: Yes Hx Syncope: Yes Review of Systems Cardiovascular: Reports: other - HTN All Other Systems: negative except mentioned in HPI Physical Exam Vital Signs Date Time Temp Pulse Resp B/P (MAP) Pulse Ox O2 Delivery O2 Flow Rate FiO2 05/08/17 18:36 110 20 207/121 99 Room Air Sp02 EP Interpretation: reviewed, normal General Appearance: no apparent distress, alert, GCS 15, non-toxic Head: normocephalic, atraumatic Eyes: bilateral eye normal inspection, bilateral eye PERRL ENT: hearing grossly normal, normal pharynx, no angioedema, normal voice Neck: full range of motion, supple/symm/no masses Respiratory: chest non-tender, lungs clear, normal breath sounds, speaking full sentences Cardiovascular #1: regular rate, rhythm, no edema Cardiovascular #2: 2+ carotid (R), 2+ carotid (L), 2+ radial (R), 2+ radial (L) , 2+ dorsalis pedis (R), 2+ dorsalis pedis (L) Gastrointestinal: normal bowel sounds, non tender, soft, non-distended, no guarding, no rebound Rectal: deferred Genitourinary: normal inspection, no CVA tenderness Musculoskeletal: back normal, gait/station normal, normal range of motion, non- tender, calf tenderness Neurologic: alert, oriented x3, responsive, motor strength/tone normal, sensory intact, cerebellar normal, normal gait, speech normal, no pronator Psychiatric: judgement/insight normal, memory normal, mood/affect normal, no suicidal/homicidal ideation Reflexes: 3+ bicep (R), 3+ bicep (L), 3+ tricep (R), 3+ tricep (L), 3+ knee (R) , 3+ knee (L) Skin: normal color, no rash, warm/dry, well hydrated Lymphatic: no adenopathy Medical Decision Making PA Attestation supervising physician Dr. Hess Diagnostic Impression: Primary Impression: Uncontrolled hypertension Additional Impression: Stress reaction ER Course Patient is a 71-year-old female with history of hypertension M. today she's been taking her hypertensive medications at home. Patient's series of simple traumatic event over the past 24 hours which she states as the source of her elevated blood pressure. Patient is given 0.2 mg clonidine in the ED with improvement of symptoms on reevaluation. No need for further evaluation and management as hypertension is asymptomatic. Patient complaining of cramping in her feet and states his history of hypokalemia. Labs are within normal limits. Patient states she is feeling better on reevaluation. Discharged home with instructions to follow up with PCP for further evaluation and management. Patient understands this we will plan Reevaluation Time: 20:53 Last Vital Signs Date Time Temp Pulse Resp B/P (MAP) Pulse Ox O2 Delivery O2 Flow Rate FiO2 05/08/17 18:36 110 20 207/121 99 Room Air Status: improved Disposition: HOME, SELF-CARE Condition: Stable Patient Instructions: Hypertension Kaleigh Arenas May 08, 2017 19:33
[2017-05-08 20:07] LABS: BASOPHILS % (AUTO) 0.7 % (0.0-2.0); EOSINOPHILS % (AUTO) 0.3 % (0.0-3.0); HEMOGLOBIN 14.1 G/DL (12.0-16.0); LYMPHOCYTES % (AUTO) 17.1 % (20.0-45.0); MEAN CORPUSCULAR VOLUME 90 FL (80-99); PLATELET COUNT 360 K/UL (150-450); RED BLOOD COUNT 4.69 M/UL (4.20-5.40); RED CELL DISTRIBUTION WIDTH 11.4 % (11.6-14.8); WHITE BLOOD COUNT 13.9 K/UL (4.8-10.8)
[2017-05-08 20:16] LABS: ANION GAP 13 mmol/L (5-15); BLOOD UREA NITROGEN 28 mg/dL (7-18); CALCIUM 9.8 MG/DL (8.5-10.1); CARBON DIOXIDE 27 MMOL/L (21-32); CHLORIDE 100 MMOL/L (98-107); CREATININE 1.1 MG/DL (0.55-1.30); POTASSIUM 3.6 MMOL/L (3.5-5.1); SODIUM 140 MMOL/L (136-145)
[2017-05-08 20:23] LABS: ALANINE AMINOTRANSFERASE 16 U/L (12-78); ALBUMIN 4.3 G/DL (3.4-5.0); ALBUMIN/GLOBULIN RATIO 1.1 (1.0-2.7); ALKALINE PHOSPHATASE 80 U/L (46-116); ASPARTATE AMINO TRANSFERASE 29 U/L (15-37); BILIRUBIN,TOTAL 0.5 MG/DL (0.2-1.0)
[2017-05-08 20:36] VITALS: BP 178/107
[2017-05-08 20:59] VITALS: BP 178/107
== END 2017-05-08 20:59 | disposition home or self-care (01) ==
LOC: EDBD 18:39 → EMR 19:08
DX: I10 Essential (primary) hypertension (principal); F43.9 Reaction to severe stress, unspecified; Z88.1 Allergy status to other antibiotic agents; Z88.8 Allergy status to other drugs, medicaments and biological substances
CPT/HCPCS: 36415; 80053; 85025; 99284

== ENCOUNTER 2017-05-15 08:18 | Emergency (ER) | payer MEDICARE ==
[~2017-05-15] VITALS: Ht 154.9 cm; Wt 56.7 kg
--- NOTE | 2017-05-15 08:23 | Emergency Room Report ---
History of Present Illness General Chief Complaint: To Be Triaged Source: Patient Present Illness HPI 71YOF walk-in with rib pain right side from injury "years ago." No recent trauma/falls Pain worse to right ribs with deep inspiration No recent URI symptoms, cough, fever/chills Non-smoker Lives in car/homeless Allergies: Coded Allergies: IODINE (Verified Allergy, Unknown, 01/22/16) Uncoded Allergies: ANTIBIOTICS (Allergy, Unknown, 08/14/16) PT. STATE SHE CAN ONLY TAKE SULFA DRUGS. Patient History Past Medical History: none Past Surgical History: none Pertinent Family History: none Social History: Denies: smoking, alcohol use, drug use Now: No Immunizations: UTD Reviewed Nursing Documentation: PMH: Agreed, PSxH: Agreed Nursing Documentation-PMH Hx Hypertension: Yes Hx Cancer: No Hx Neurological Problems: Yes - Fiber Myalgia Hx Dizziness: Yes Hx Syncope: Yes Review of Systems All Other Systems: negative except mentioned in HPI Physical Exam Sp02 EP Interpretation: reviewed, normal General Appearance: normal inspection, well appearing, no apparent distress, alert, GCS 15, non-toxic Head: normocephalic, atraumatic Eyes: bilateral eye PERRL, bilateral eye EOMI ENT: normal ENT inspection, hearing grossly normal, normal pharynx, no angioedema, normal voice, TMs + canals normal, uvula midline, moist mucus membranes Neck: normal inspection, full range of motion, supple, thyroid normal, no meningismus, no bony tend Respiratory: normal inspection, lungs clear, normal breath sounds, no rhonchi, no respiratory distress, no retraction, no accessory muscle use, no wheezing, speaking full sentences, other - Very mild ttp to deep palpation of right anterior ribs, chest symmetrical Cardiovascular #1: regular rate, rhythm, no edema, no JVD, normal capillary refill Gastrointestinal: normal inspection, normal bowel sounds, non tender, soft, no mass, no peritonitis, non-distended, no guarding, no hernia, no pulsatile mass Genitourinary: no CVA tenderness Musculoskeletal: normal inspection, back normal, normal range of motion, no calf tenderness, pelvis stable, Allen's Sign negative Neurologic: normal inspection, alert, oriented x3, responsive, legal services professional III-XII nml as tested, motor strength/tone normal, cerebellar normal, normal gait, speech normal Psychiatric: normal inspection, judgement/insight normal, mood/affect normal, no suicidal/homicidal ideation, no delusions Skin: normal inspection, normal color, no rash Lymphatic: normal inspection, no adenopathy Medical Decision Making Diagnostic Impression: Primary Impression: Rib pain on right side Additional Impression: Homeless ER Course VSS, Afebrile lungs CTAB Unlikely PTX No recent trauma ?rib pain from prior contusion Xrays negative for acute fx NSAIDs given SW consult for homelessness DC with motrin ER course: Patient has remained stable during ED stay. Disposition: Patient is to be discharged to home. Prescriptions given are motrin Patient is instructed to follow up with their primary care doctor within 5 days. Strict return precautions discussed with patient such as fever, chills, worsening/severe pain, nausea, vomiting, which may indicate severe illness. Patient verbalizes understanding and agrees with plan. Please note that this Emergency Department Report was dictated using Forgamefundraising consultant technology software, occasionally this can lead to erroneous entry secondary to interpretation by the dictation equipment Other X-Ray Diagnostic Results Other X-Ray Diagnostic Results : X-Ray ordered: Ribs # of Views/Limited Vs Complete: 3 View Indication: Pain EP Interpretation: Yes Interpretation: no dislocation, no soft tissue swelling, no fractures Impression: No acute disease Electronically Signed by: Dr Kyle Ramsey MD Status: improved Disposition: HOME, SELF-CARE Scripts Ibuprofen* (MOTRIN*) 600 Mg Tablet 600 MG ORAL THREE TIMES A DAY for rib pain for 7 Days, #30 TAB 0 Refills Prov: KYLE RAMSEY M.D. 05/15/17 KYLE RAMSEY M.D. May 15, 2017 08:23
[2017-05-15 08:34] VITALS: BP 160/99
[2017-05-15] MEDS ORDERED: IBUPROFEN600 MG ORAL (09:30)
[2017-05-15 10:38] VITALS: BP 159/103
--- NOTE | 2017-05-15 13:34 | Diagnostic Imaging Report ---
Indication: Right sided chest pain status post fall Technique: Multiple views of the right ribs Comparison: none Findings: No acute fractures. No dislocations. No pneumothorax. Incidentally noted are cholecystectomy clips Impression: Negative This agrees with the preliminary interpretation provided by the emergency room physician
== END 2017-05-15 10:38 | disposition home or self-care (01) ==
LOC: EMR 08:51
DX: R07.81 Pleurodynia (principal); Z59.0 Homelessness; I10 Essential (primary) hypertension; Z88.1 Allergy status to other antibiotic agents; Z91.041 Radiographic dye allergy status
CPT/HCPCS: 99283

== ENCOUNTER 2017-08-29 20:54 | Emergency (ER) | payer MEDICARE ==
[~2017-08-29] VITALS: Ht 154.9 cm; Wt 56.7 kg
[~2017-08-29 20:54] MED LIST changes: +CYMBALTA30 MG ORAL; +LOSARTAN POTASS25 MG ORAL; +NEURONTIN100 MG ORAL
[2017-08-29 20:55] VITALS: BP 103/65
--- NOTE | 2017-08-29 21:09 | Emergency Room Report ---
History of Present Illness General Chief Complaint: Generalized Weakness Source: Patient, EMS Present Illness HPI 72-year-old female with history of hypertension and fibromyalgia presents to the ER for generalized weakness, brought in by ambulance from a street corner where she was hanging out with her friends. She does report urinary frequency but reports no pain complaints, no fevers, no shortness of breath, but is very drowsy, and she denies any recent drug use Allergies: Coded Allergies: IODINE (Verified Allergy, Unknown, 01/22/16) PENICILLINS (Unverified Allergy, Unknown, 08/29/17) Uncoded Allergies: ANTIBIOTICS (Allergy, Unknown, 08/14/16) PT. STATE SHE CAN ONLY TAKE SULFA DRUGS. Patient History Past Medical History: see triage record Now: No Reviewed Nursing Documentation: PMH: Agreed; PSxH: Agreed Nursing Documentation-PMH Hx Hypertension: Yes Hx Cancer: No Hx Neurological Problems: Yes - Fiber Myalgia Hx Dizziness: Yes Hx Syncope: Yes Review of Systems All Other Systems: negative except mentioned in HPI Physical Exam Vital Signs Date Time Temp Pulse Resp B/P (MAP) Pulse Ox O2 Delivery O2 Flow Rate FiO2 08/29/17 20:48 98.3 63 20 103/65 97 Room Air 98.2 Sp02 EP Interpretation: reviewed, normal General Appearance: no apparent distress, alert, non-toxic Head: normocephalic Eyes: bilateral eye normal inspection, bilateral eye PERRL, bilateral eye EOMI ENT: normal ENT inspection, hearing grossly normal, normal pharynx, no angioedema, normal voice, moist mucus membranes Neck: normal inspection, full range of motion, supple, supple/symm/no masses Respiratory: chest non-tender, lungs clear, normal breath sounds, chest symmetrical, palpation of chest normal Cardiovascular #1: normal peripheral pulses, regular rate, rhythm Cardiovascular #2: 2+ radial (R), 2+ radial (L) Gastrointestinal: normal inspection, non tender, soft, no mass, no guarding, no rebound Rectal: deferred Genitourinary: normal inspection, no CVA tenderness Musculoskeletal: back normal, gait/station normal, normal range of motion, non- tender, no calf tenderness Neurologic: alert - Very drowsy, but easily arousable to verbal stimulus, responsive, client experience manager III-XII nml as tested, motor strength/tone normal, sensory intact, speech normal Psychiatric: judgement/insight normal, memory normal, mood/affect normal Skin: normal color, no rash, warm/dry, normal turgor Lymphatic: no adenopathy Medical Decision Making ER Course I suspect patient is on multiple substances causing her drowsiness, I do not suspect any other acute illness, she has an unremarkable neurologic exam, is alert and oriented to person place situation and time, and other than being drowsy, I do not suspect any acute pathology, I will obtain a basic workup and reevaluate. Patient had a low K+, was given IV and PO potassium, EKG normal with no U waves , normal QTc, will dc home with rx for KCl also. EKG Diagnostic Results EKG Time: 21:08 EP Interpretation: no st-t changes, no twi Rate: normal Rhythm: NSR ST Segments: no acute changes ASA given to the pt in ED: No Rhythm Strip Diag. Results Rhythm Strip Time: 21:31 EP Interpretation: yes Rate: 67 Rhythm: NSR, no PVC's, no ectopy Chest X-Ray Diagnostic Results Chest X-Ray Diagnostic Results : Chest X-Ray Ordered: Yes # of Views/Limited/Complete: 1 View Indication: Other EP Interpretation: Yes PA Xray: Interpretation reviewed Interpretation: no consolidation, no effusion, no pneumothorax, no acute cardiopulmonary disease, other - prominent mediastinum Impression: No acute disease Electronically Signed by: Dora Goyal MD Last Vital Signs Date Time Temp Pulse Resp B/P (MAP) Pulse Ox O2 Delivery O2 Flow Rate FiO2 08/29/17 20:48 98.3 63 20 103/65 97 Room Air 98.2 DORA GOYAL M.D August 29, 2017 21:09
[2017-08-29 21:56] LABS: BASOPHILS % (AUTO) 0.9 % (0.0-2.0); EOSINOPHILS % (AUTO) 1.9 % (0.0-3.0); HEMATOCRIT 43.9 % (37.0-47.0); HEMOGLOBIN 14.8 G/DL (12.0-16.0); LYMPHOCYTES % (AUTO) 12.9 % (20.0-45.0); MEAN CORPUSCULAR VOLUME 87 FL (80-99); MONOCYTES % (AUTO) 6.1 % (1.0-10.0); NEUTROPHILS % (AUTO) 78.3 % (45.0-75.0); PLATELET COUNT 268 K/UL (150-450); RED BLOOD COUNT 5.05 M/UL (4.20-5.40); RED CELL DISTRIBUTION WIDTH 11.2 % (11.6-14.8); WHITE BLOOD COUNT 11.4 K/UL (4.8-10.8)
[2017-08-29 22:20] LABS: ALANINE AMINOTRANSFERASE 18 U/L (12-78); ALBUMIN 3.9 G/DL (3.4-5.0); ALKALINE PHOSPHATASE 80 U/L (46-116); ANION GAP 7 mmol/L (5-15); ASPARTATE AMINO TRANSFERASE 21 U/L (15-37); BILIRUBIN,TOTAL 0.4 MG/DL (0.2-1.0); BLOOD UREA NITROGEN 24 mg/dL (7-18); CALCIUM 9.5 MG/DL (8.5-10.1); CARBON DIOXIDE 34 MMOL/L (21-32); CHLORIDE 101 MMOL/L (98-107); CREATININE 1.4 MG/DL (0.55-1.30); SODIUM 143 MMOL/L (136-145)
[2017-08-29 22:21] LABS: POTASSIUM 2.7 MMOL/L (3.5-5.1)
[2017-08-29 22:41] LABS: APPEARANCE,URINE CLEAR; BILIRUBIN, URINE NEGATIVE (NEGATIVE); COLOR,URINE PALE YELLOW; GLUCOSE, URINE (UA) NEGATIVE (NEGATIVE); KETONES,URINE NEGATIVE (NEGATIVE); LEUKOCYTE ESTERASE ,URINE NEGATIVE (NEGATIVE); NITRITE,URINE NEGATIVE (NEGATIVE); PH,URINE 8 (4.5-8.0); PROTEIN,URINE NEGATIVE (NEGATIVE); UROBILINOGEN,URINE NORMAL MG/DL (0.0-1.0)
[2017-08-30 00:03] VITALS: BP 125/73
[2017-08-30] MEDS ORDERED: POTASSIUM CHLO20 ME2 ORAL (00:08)
[2017-08-30 01:00] VITALS: BP 109/69
--- NOTE | 2017-08-30 11:14 | Diagnostic Imaging Report ---
Indication: Shortness of breath Technique: One view of the chest Comparison: 01/11/2017 Findings: Tortuous ectatic calcified aorta. Lungs and pleural spaces are clear. Inspiration is suboptimal. There are cholecystectomy clips. No significant interim change Impression: No acute process
--- NOTE | 2017-09-02 14:02 | Cardiology Report ---
APPROVED REPORT EKG Measurement Heart [id number] Normal sinus rhythm Nonspecific T wave abnormality Abnormal ECG
== END 2017-08-30 01:05 | disposition home or self-care (01) ==
LOC: EDBD 20:54 → EMR 21:48
DX: R53.1 Weakness (principal); I10 Essential (primary) hypertension; M79.7 Fibromyalgia; Z88.0 Allergy status to penicillin; Z91.041 Radiographic dye allergy status
CPT/HCPCS: 36415; 71045; 80053; 80307; 81003; 83735; 85025; 93005; 96374; 96375; 99284; J3480; J8499

== ENCOUNTER 2017-10-12 08:20 | Emergency (ER) | payer MEDICARE ==
[~2017-10-12] VITALS: Ht 154.9 cm; Wt 56.7 kg
[2017-10-12 08:20] VITALS: BP 154/117
[~2017-10-12 08:20] MED LIST changes: +POTASSIUM CHLO20 ME2 ORAL
[2017-10-12] MEDS ORDERED: Methocarbamol 750mg tab ORAL ONE (08:45)
[2017-10-12] MEDS ORDERED: Ketorolac 30mg Inj IM ONE (08:45)
[2017-10-12] MEDS ORDERED: Norco 5mg/325mg tab ORAL ONE (08:45)
[2017-10-12] MEDS ORDERED: ROBAXIN-750750 MG PO (09:43)
[2017-10-12] MEDS ORDERED: ACETAMINOPHEN-1 EAC1 ORAL (09:43)
[2017-10-12 09:51] VITALS: BP 140/98
--- NOTE | 2017-10-12 10:24 | Emergency Room Report ---
History of Present Illness General Chief Complaint: Back Pain-No Injury Source: Patient Present Illness HPI 72-year-old female presents ED complaining of back pain. Brought in by EMS. Was found in a home, squatting as per EMS. Patient states her back "locked up" . History of back problems. Denies any recent injury. Pain is 7 out of 10, cramping, nonradiating. Denies any bowel or bladder incontinence. Denies any leg or motor weakness. No other aggravating relieving factors. Denies any other associated symptoms Allergies: Coded Allergies: IODINE (Verified Allergy, Unknown, 01/22/16) PENICILLINS (Unverified Allergy, Unknown, 08/29/17) Uncoded Allergies: ANTIBIOTICS (Allergy, Unknown, 08/14/16) PT. STATE SHE CAN ONLY TAKE SULFA DRUGS. Patient History Past Medical History: other - fibromyalgia Past Surgical History: none Pertinent Family History: none Social History: Denies: smoking, alcohol use, drug use Now: No Immunizations: UTD Reviewed Nursing Documentation: PMH: Agreed; PSxH: Agreed Nursing Documentation-PMH Past Medical History: No History, Except For Hx Hypertension: Yes Hx Cancer: No Hx Neurological Problems: Yes - Fiber Myalgia Hx Dizziness: Yes Hx Syncope: Yes Review of Systems All Other Systems: negative except mentioned in HPI Physical Exam Vital Signs Date Time Temp Pulse Resp B/P (MAP) Pulse Ox O2 Delivery O2 Flow Rate FiO2 10/12/17 08:15 209.7 98.8 10/12/17 08:15 96 18 154/117 96 Room Air Sp02 EP Interpretation: reviewed, normal General Appearance: no apparent distress, alert, GCS 15, non-toxic Head: normocephalic Eyes: bilateral eye normal inspection, bilateral eye PERRL ENT: normal ENT inspection Neck: normal inspection Respiratory: normal inspection Cardiovascular #1: normal inspection Gastrointestinal: normal inspection Rectal: deferred Genitourinary: no CVA tenderness, no vertebral tenderness Musculoskeletal: tender - paraspinal lumbar tenderness Neurologic: alert, oriented x3, responsive, motor strength/tone normal, sensory intact, speech normal Psychiatric: normal inspection Skin: normal inspection Lymphatic: normal inspection Medical Decision Making Diagnostic Impression: Primary Impression: Back pain Qualified Codes: M54.5 - Low back pain ER Course Hospital Course 72-year-old female presents ED complaining of lower back pain. No evidence of trauma Differential diagnoses include: pyelonephritis, kidney stone, muscle strain, Lspine fracture Clinical course Patient placed on stretcher. After initial history and physical I ordered pain meds. Upon reassessment patient states pain has improved. Patient has been here previously for similar back pain which has resolved with appropriate analgesic medication Diagnosis - back pain Stable and discharged to home with prescription for Tylenol #3, robaxin. Followup with PMD. Return to ED if symptoms recur or worsen Last Vital Signs Date Time Temp Pulse Resp B/P (MAP) Pulse Ox O2 Delivery O2 Flow Rate FiO2 10/12/17 09:51 98.8 90 18 140/98 96 Room Air 98.8 Status: improved Disposition: HOME, SELF-CARE Condition: Stable Scripts Methocarbamol* (ROBAXIN-750*) 750 Mg Tablet 750 MG PO TID, #21 TAB 0 Refills Prov: Brandon Quinteros MD 10/12/17 Acetaminophen With Codeine (T#3) (TYLENOL #3 TAB*) Y Tab 1 TAB ORAL Q8H PRN for For Pain, #20 TAB Prov: Brandon Quinteros MD 10/12/17 Referrals: NOT CHOSEN IPA/,REFERRING (PCP) Patient Instructions: Back Pain, Adult Brandon Quinteros MD Oct 12, 2017 10:24
== END 2017-10-12 13:38 | disposition home or self-care (01) ==
LOC: EDBD 08:20 → EMR 08:40
DX: M54.5 Low back pain (principal); I10 Essential (primary) hypertension; Z88.0 Allergy status to penicillin
CPT/HCPCS: 96372; 99284; J1885

== ENCOUNTER 2017-11-06 12:38 | Emergency (ER) | payer MEDICARE ==
[~2017-11-06] VITALS: Ht 157.5 cm; Wt 65.8 kg
--- NOTE | 2017-11-06 12:53 | Emergency Room Report ---
History of Present Illness General Chief Complaint: Dyspnea/Respdistress Source: Patient Present Illness HPI 72-year-old female presented with looking red when her phlebotomy program coordinator came to come rounds today. Patient lives in a tent, but she slept outside last night, she does feel like she became slightly sunburned and it makes plan the redness, she came to EMS for complaint of shortness of breath but she denies any shortness breath to me. She does report however she feels generalized weakness , and thinks that may be secondary to diarrhea she experienced over the last week, she reports she's had about 4 loose stools in the last week, which does not sound like a large volume but she reports that she usually doesn't have much stool at all. She denies rectal bleeding, and reports no pain complaints anywhere. Allergies: Coded Allergies: IODINE (Verified Allergy, Unknown, 01/22/16) PENICILLINS (Unverified Allergy, Unknown, 08/29/17) SULFA (SULFONAMIDE ANTIBIOTICS) (Unverified Allergy, Unknown, 11/06/17) Uncoded Allergies: ANTIBIOTICS (Allergy, Unknown, 08/14/16) PT. STATE SHE CAN ONLY TAKE SULFA DRUGS. Patient History Past Medical History: see triage record Last Menstrual Period: NA Reviewed Nursing Documentation: PMH: Agreed; PSxH: Agreed Nursing Documentation-PMH Past Medical History: No History, Except For Hx Hypertension: Yes Hx Cancer: No Hx Neurological Problems: Yes - Fiber Myalgia Hx Dizziness: Yes Hx Syncope: Yes Review of Systems All Other Systems: negative except mentioned in HPI Physical Exam Vital Signs Date Time Temp Pulse Resp B/P (MAP) Pulse Ox O2 Delivery O2 Flow Rate FiO2 11/06/17 12:32 98.2 83 18 167/97 99 Nasal Cannula 2.0 98.2 Sp02 EP Interpretation: reviewed, normal General Appearance: no apparent distress, alert, non-toxic Head: normocephalic Eyes: bilateral eye normal inspection, bilateral eye PERRL, bilateral eye EOMI ENT: normal ENT inspection, hearing grossly normal, normal pharynx, no angioedema, normal voice, moist mucus membranes Neck: normal inspection, full range of motion, supple, supple/symm/no masses Respiratory: chest non-tender, lungs clear, normal breath sounds, chest symmetrical, palpation of chest normal Cardiovascular #1: normal peripheral pulses, regular rate, rhythm Cardiovascular #2: 2+ radial (R), 2+ radial (L) Gastrointestinal: normal inspection, non tender, soft, no mass, no guarding, no rebound Rectal: deferred Genitourinary: normal inspection, no CVA tenderness Musculoskeletal: back normal, gait/station normal, normal range of motion, non- tender, no calf tenderness Neurologic: alert, responsive, marine tower operator III-XII nml as tested, motor strength/tone normal, sensory intact, speech normal Psychiatric: judgement/insight normal, memory normal, mood/affect normal, no suicidal/homicidal ideation Skin: normal color, no rash, warm/dry, normal turgor, montemayor - Redish sunburned appearance to her face, nontender Lymphatic: no adenopathy Medical Decision Making Diagnostic Impression: Primary Impression: Generalized weakness ER Course Patient with normal workup, unremarkable evaluation, will be discharged EKG Diagnostic Results EKG Time: 12:53 EP Interpretation: no st-t changes, no twi Rate: normal Rhythm: NSR Rhythm Strip Diag. Results Rhythm Strip Time: 13:43 EP Interpretation: yes Rate: 74 Rhythm: NSR, no PVC's, no ectopy Chest X-Ray Diagnostic Results Chest X-Ray Diagnostic Results : Chest X-Ray Ordered: Yes # of Views/Limited/Complete: 1 View Indication: Shortness of Breath EP Interpretation: Yes Interpretation: no consolidation, no effusion, no pneumothorax, no acute cardiopulmonary disease Impression: No acute disease Electronically Signed by: Dora Goyal MD Last Vital Signs Date Time Temp Pulse Resp B/P (MAP) Pulse Ox O2 Delivery O2 Flow Rate FiO2 11/06/17 12:44 Room Air 11/06/17 12:32 98.2 83 18 167/97 99 2.0 98.2 Disposition: HOME, SELF-CARE Condition: Stable DOAR GOYAL M.D Nov 06, 2017 12:53
[2017-11-06 13:09] LABS: BASOPHILS % (AUTO) 0.9 % (0.0-2.0); EOSINOPHILS % (AUTO) 2.6 % (0.0-3.0); HEMATOCRIT 40.8 % (37.0-47.0); HEMOGLOBIN 13.8 G/DL (12.0-16.0); LYMPHOCYTES % (AUTO) 23.8 % (20.0-45.0); MEAN CORPUSCULAR VOLUME 87 FL (80-99); MONOCYTES % (AUTO) 5.9 % (1.0-10.0); NEUTROPHILS % (AUTO) 66.8 % (45.0-75.0); PLATELET COUNT 297 K/UL (150-450); RED CELL DISTRIBUTION WIDTH 11.3 % (11.6-14.8); WHITE BLOOD COUNT 10.4 K/UL (4.8-10.8)
[2017-11-06 13:22] LABS: ANION GAP 8 mmol/L (5-15); BLOOD UREA NITROGEN 24 mg/dL (7-18); CALCIUM 9.6 MG/DL (8.5-10.1); CARBON DIOXIDE 32 MMOL/L (21-32); CHLORIDE 101 MMOL/L (98-107); POTASSIUM 3.6 MMOL/L (3.5-5.1); SODIUM 140 MMOL/L (136-145)
[2017-11-06 13:27] LABS: ALANINE AMINOTRANSFERASE 20 U/L (12-78); ALBUMIN 3.7 G/DL (3.4-5.0); ALBUMIN/GLOBULIN RATIO 0.9 (1.0-2.7); ALKALINE PHOSPHATASE 88 U/L (46-116); ASPARTATE AMINO TRANSFERASE 20 U/L (15-37); BILIRUBIN,TOTAL 0.3 MG/DL (0.2-1.0)
--- NOTE | 2017-11-06 13:30 | Diagnostic Imaging Report ---
Indication: Shortness of breath Technique: One view of the chest Comparison: 08/29/2017 Findings: No acute infiltrates, effusions, or congestion. Tortuous calcified aorta. Normal heart size. Upper mediastinum unremarkable. Better inspiration currently. No other significant interim change Impression: No acute process.
[2017-11-06 13:58] VITALS: BP 152/97
[2017-11-06 14:00] VITALS: BP 152/97
--- NOTE | 2017-11-22 13:51 | Cardiology Report ---
APPROVED REPORT EKG Measurement Heart [id number] Sinus rhythm with premature atrial complexes Otherwise normal ECG
== END 2017-11-06 14:26 | disposition home or self-care (01) ==
LOC: EDBD 12:38 → EMR 13:06
DX: R53.1 Weakness (principal); I10 Essential (primary) hypertension; Z88.0 Allergy status to penicillin; Z88.2 Allergy status to sulfonamides; Z88.1 Allergy status to other antibiotic agents
CPT/HCPCS: 36415; 71045; 80053; 84484; 85025; 93005; 96360; 99283

== ENCOUNTER 2018-01-09 12:10 | Inpatient (IN) | payer MEDICARE ==
[~2018-01-09] VITALS: Ht 160 cm; Wt 72.6 kg
[2018-01-09 12:10] VITALS: BP 101/71
[2018-01-09 12:56] LABS: EOSINOPHILS % (AUTO) 0.4 % (0.0-3.0); HEMATOCRIT 43.4 % (37.0-47.0); HEMOGLOBIN 14.2 G/DL (12.0-16.0); LYMPHOCYTES % (AUTO) 15.1 % (20.0-45.0); MEAN CORPUSCULAR VOLUME 89 FL (80-99); MONOCYTES % (AUTO) 5.6 % (1.0-10.0); NEUTROPHILS % (AUTO) 77.8 % (45.0-75.0); PLATELET COUNT 323 K/UL (150-450); RED BLOOD COUNT 4.88 M/UL (4.20-5.40); RED CELL DISTRIBUTION WIDTH 11.4 % (11.6-14.8); WHITE BLOOD COUNT 11.5 K/UL (4.8-10.8)
[2018-01-09 13:20] LABS: ALANINE AMINOTRANSFERASE 16 U/L (12-78); ALBUMIN 3.9 G/DL (3.4-5.0); ALKALINE PHOSPHATASE 78 U/L (46-116); ANION GAP 13 mmol/L (5-15); ASPARTATE AMINO TRANSFERASE 21 U/L (15-37); BILIRUBIN,TOTAL 0.8 MG/DL (0.2-1.0); BLOOD UREA NITROGEN 18 mg/dL (7-18); CARBON DIOXIDE 27 MMOL/L (21-32); CHLORIDE 100 MMOL/L (98-107); CKMB 1.5 NG/ML (0.0-3.6); CREATINE KINASE 53 U/L (26-308); CREATININE 1.5 MG/DL (0.55-1.30); SODIUM 139 MMOL/L (136-145)
[2018-01-09 13:21] LABS: POTASSIUM 2.6 MMOL/L (3.5-5.1)
--- NOTE | 2018-01-09 13:21 | Diagnostic Imaging Report ---
Indication: Altered mental status Technique: Contiguous 5 mm thick transaxial imaging of the head obtained in a Siemens Sensation [address] scanner. Soft tissue and bone windows generated. Automatic Exposure Control was utilized. Total Dose length Product (DLP): 1340.[address] Dose Index Volume (CTDIvol): 70.38 mGy Comparison: 05/08/2017 Findings: There is a small focus of encephalomalacia in the right occipital region consistent with an old infarct. There may be some curvilinear calcification probably an area of laminar necrosis within the area of encephalomalacia that has developed since the last exam. There is moderate prominence of the ventricles, basal cisterns, and cerebral sulci consistent with atrophy. Moderate, nonspecific, white matter hypoattenuation is noted throughout the brain consistent with chronic small vessel disease. There is no midline shift, edema, acute hemorrhage, mass effect, or abnormal extra-axial fluid collections. Bones and extra osseous soft tissues are unremarkable. Impression: No acute intracranial bleed, mass effect or edema. 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 Evidence of chronic small vessel disease involving white matter tracts. The CT scanner at [facility] is accredited by the [employer] and the scans are performed using dose optimization techniques as appropriate to a performed exam including Automatic Exposure control.
--- NOTE | 2018-01-09 13:29 | Diagnostic Imaging Report ---
Indication: Cough Comparison: 11/06/2017 A single view chest radiograph was obtained. Findings: Cardiomediastinal appearance is within normal limits for age. Aorta is calcified. The lungs are clear. Pulmonary vascularity is appropriate. The diaphragmatic contour is smooth and costophrenic angles are sharp. No pleural effusions are identified. The bones are osteopenic. Impression: No acute findings
[2018-01-09 13:54] VITALS: BP 109/60
[2018-01-09 14:01] LABS: APPEARANCE,URINE SLIGHTLY CLOUDY; BILIRUBIN, URINE 1+ (NEGATIVE); GLUCOSE, URINE (UA) 1+ (NEGATIVE); KETONES,URINE 1+ (NEGATIVE); LEUKOCYTE ESTERASE ,URINE 2+ (NEGATIVE); NITRITE,URINE POSITIVE (NEGATIVE); PH,URINE 6.5 (4.5-8.0); PROTEIN,URINE 3+ (NEGATIVE); UROBILINOGEN,URINE 4 MG/DL (0.0-1.0)
[2018-01-09 14:06] LABS: COLOR,URINE YELLOW
[2018-01-09] MEDS ORDERED: cefTRIAXone 1 GM in NS 55 ML IVPB ONE (14:30)
--- NOTE | 2018-01-09 14:37 | Emergency Room Report ---
History of Present Illness General Chief Complaint: Syncope Source: Patient, Medical Record, EMS Present Illness HPI Patient presents emergency department today with a syncopal event. Patient states that she was feeling weak and then subsequently had a syncopal event. No seizure activity was noted. Patient denies any chest pain shortness breath. Symptoms noted to be moderate to severe.No other modifying factors. No other associated signs and symptoms. No other complaints were noted. Allergies: Coded Allergies: IODINE (Verified Allergy, Unknown, 01/22/16) PENICILLINS (Unverified Allergy, Unknown, 08/29/17) SULFA (SULFONAMIDE ANTIBIOTICS) (Unverified Allergy, Unknown, 11/06/17) Uncoded Allergies: ANTIBIOTICS (Allergy, Unknown, 08/14/16) PT. STATE SHE CAN ONLY TAKE SULFA DRUGS. Patient History Past Medical History: HTN, other - Fibromyalgia Past Surgical History: none Pertinent Family History: none Social History: Denies: smoking, alcohol use, drug use Reviewed Nursing Documentation: PMH: Agreed; PSxH: Agreed Nursing Documentation-PMH Past Medical History: No History, Except For Hx Hypertension: Yes Hx Cancer: No Hx Neurological Problems: Yes - Fiber Myalgia Hx Dizziness: Yes Hx Syncope: Yes Review of Systems All Other Systems: negative except mentioned in HPI Physical Exam Vital Signs Date Time Temp Pulse Resp B/P (MAP) Pulse Ox O2 Delivery O2 Flow Rate FiO2 01/09/18 12:06 98.5 103 18 104/71 99 Room Air 98.4 Sp02 EP Interpretation: reviewed, normal General Appearance: alert, mild distress, moderate distress, thin Head: atraumatic Eyes: bilateral eye normal inspection ENT: normal ENT inspection, hearing grossly normal, normal voice Neck: normal inspection, full range of motion, supple, no bony tend Respiratory: normal inspection, lungs clear, normal breath sounds, no respiratory distress, no retraction, no wheezing Cardiovascular #1: regular rate, rhythm, no edema Gastrointestinal: normal inspection, normal bowel sounds, non tender, soft, no guarding, no hernia Genitourinary: no CVA tenderness Musculoskeletal: normal inspection, back normal, normal range of motion Neurologic: normal inspection, alert, responsive, speech normal Psychiatric: normal inspection, judgement/insight normal, mood/affect normal Skin: normal inspection, normal color, no rash Medical Decision Making Diagnostic Impression: Primary Impression: Syncope Additional Impressions: Hypokalemia Hypotension Dehydration UTI (urinary tract infection) ER Course Patient presents emergency department today with generalized weakness syncopal event and hypotension. Differential considerations include acute cord syndrome , dehydration, electrolyte abnormality, infectious process just to name a few.Given the severity of the patient's presentation I felt this is a highly complex patient. This patient required extensive workup. Patient's laboratory workup shows evidence UTI. Patient was also hypokalemic. Therefore patient was given IV antibiotics fluids. Given patient's hypotension and syncope of felt the patient required mission to the hospital. Patient does not have a primary care physician affiliated with [facility] therefore patient will be admitted to the on-call physician was is Dr. Morris Rizo. Case discussed with Dr. Rizo for admission. Labs Test 01/09/18 12:20 01/09/18 13:40 White Blood Count 11.5 K/UL (4.8-10.8) Red Blood Count 4.88 M/UL (4.20-5.40) Hemoglobin 14.2 G/DL (12.0-16.0) Hematocrit 43.4 % (37.0-47.0) Mean Corpuscular Volume 89 FL (80-99) Mean Corpuscular Hemoglobin 29.1 PG (27.0-31.0) Mean Corpuscular Hemoglobin Concent 32.7 G/DL (32.0-36.0) Red Cell Distribution Width 11.4 % (11.6-14.8) Platelet Count 323 K/UL (150-450) Mean Platelet Volume 6.9 FL (6.5-10.1) Neutrophils (%) (Auto) 77.8 % (45.0-75.0) Lymphocytes (%) (Auto) 15.1 % (20.0-45.0) Monocytes (%) (Auto) 5.6 % (1.0-10.0) Eosinophils (%) (Auto) 0.4 % (0.0-3.0) Basophils (%) (Auto) 1.0 % (0.0-2.0) Sodium Level 139 MMOL/L (136-145) Potassium Level 2.6 MMOL/L (3.5-5.1) Chloride Level 100 MMOL/L (98-107) Carbon Dioxide Level 27 MMOL/L (21-32) Anion Gap 13 mmol/L (5-15) Blood Urea Nitrogen 18 mg/dL (7-18) Creatinine 1.5 MG/DL (0.55-1.30) Estimat Glomerular Filtration Rate mL/min (>60) Glucose Level 190 MG/DL (74-106) Calcium Level 9.0 MG/DL (8.5-10.1) Total Bilirubin 0.8 MG/DL (0.2-1.0) Aspartate Amino Transf (AST/SGOT) 21 U/L (15-37) Alanine Aminotransferase (ALT/SGPT) 16 U/L (12-78) Alkaline Phosphatase 78 U/L (46-116) Total Creatine Kinase 53 U/L (26-308) Creatine Kinase MB 1.5 NG/ML (0.0-3.6) Creatine Kinase MB Relative Index 2.8 Troponin I 0.000 ng/mL (0.000-0.056) Pro-B-Type Natriuretic Peptide 457 pg/mL (0-125) Total Protein 7.8 G/DL (6.4-8.2) Albumin 3.9 G/DL (3.4-5.0) Globulin 3.9 g/dL Albumin/Globulin Ratio 1.0 (1.0-2.7) Urine Color Yellow Urine Appearance Slightly cloudy Urine pH 6.5 (4.5-8.0) Urine Specific [place] 1.015 (1.005-1.035) Urine Protein 3+ (NEGATIVE) Urine Glucose (UA) 1+ (NEGATIVE) Urine Ketones 1+ (NEGATIVE) Urine Blood 2+ (NEGATIVE) Urine Nitrite Positive (NEGATIVE) Urine Bilirubin 1+ (NEGATIVE) Urine Ictotest Negative (NEGATIVE) Urine Urobilinogen 4 MG/DL (0.0-1.0) Urine Leukocyte Esterase 2+ (NEGATIVE) Urine RBC 2-4 /HPF (0 - 2) Urine WBC 5-10 /HPF (0 - 2) Urine Squamous Epithelial Cells Few /LPF (NONE/OCC) Urine Bacteria Many /HPF (NONE) EKG Diagnostic Results Rate: normal Rhythm: NSR ST Segments: no acute changes Rhythm Strip Diag. Results EP Interpretation: yes Rate: 84 Rhythm: NSR, no PVC's, no ectopy Chest X-Ray Diagnostic Results Chest X-Ray Diagnostic Results : Chest X-Ray Ordered: Yes # of Views/Limited/Complete: 1 View Indication: Chest Pain EP Interpretation: Yes Impression: No acute disease Last Vital Signs Date Time Temp Pulse Resp B/P (MAP) Pulse Ox O2 Delivery O2 Flow Rate FiO2 01/09/18 13:54 98.4 83 18 109/60 99 Room Air 98.4 Status: improved Disposition: ADMITTED INPATIENT Condition: Serious Referrals: NON PHYSICIAN (PCP) Jemal Duggan MD Jan 09, 2018 14:37
[2018-01-09 16:00] VITALS: BP 106/66
[2018-01-09] MEDS ORDERED: Mylanta II UD 30ml ORAL PRN (17:30)
[2018-01-09] MEDS ORDERED: Albuterol/Ipratropium 3ml neb HHN PRN (17:30)
[2018-01-09] MEDS ORDERED: Miralax 17gm pkt ORAL PRN (17:30)
[2018-01-09] MEDS ORDERED: LORazepam Inj 2mg/ml 1ml IV PRN (17:30)
[2018-01-09] MEDS ORDERED: Nitroglycerin Subl 0.4mg tab SL PRN (17:30)
[2018-01-09] MEDS: Methocarbamol 750mg tab ORAL SCH (18:08)
--- NOTE | 2018-01-09 19:26 | History & Physical ---
History and Physical History & Physicial Dictated for Int Med-Dr Rizo no. [id number] Vishal Smalls MD Jan 09, 2018 19:26
[2018-01-09 20:00] VITALS: BP 116/66
[2018-01-09] MEDS: Heparin 5000 units/ml inj SUBQ SCH (20:41)
[2018-01-09] MEDS: Morphine Sulfate 2mg/ml Inj IVP PRN (21:21)
[2018-01-10] VITALS (7 sets, daily range): BP systolic 130–158; BP diastolic 75–96
--- NOTE | 2018-01-10 00:15 | History and Physical Report ---
DATE OF ADMISSION: 01/09/2018 CHIEF COMPLAINT: The patient is a 72-year-old female, presents with chief complaint of "I passed out." HISTORY OF PRESENT ILLNESS: The patient was admitted to [facility] in December 2016 for similar episode. The patient states she was feeling weak today. Subsequently, she passed out. She does not know how long she was out. There was no associated seizure activity per bystanders. The patient presented to [facility]. The patient is admitted for syncopal episode to rule out acute cerebrovascular accident versus myocardial infarction. PAST MEDICAL HISTORY: Significant for: 1. Hypertension. 2. Fibromyalgia. PAST SURGICAL HISTORY: The patient denies. CURRENT MEDICATIONS: 1. Cymbalta 60 mg p.o. twice daily. 2. Gabapentin 800 mg p.o. twice daily. 3. Ibuprofen 600 mg p.o. q.8 h. p.r.n. 4. Losartan 50 mg p.o. daily. 5. Robaxin 750 mg p.o. three times daily. 6. Potassium chloride 20 mEq p.o. daily. ALLERGIES: 1. Iodine. 2. Penicillin. 3. Sulfa drugs. SOCIAL HISTORY: The patient is . The patient lives with her family. The patient denies tobacco or alcohol use. REVIEW OF SYSTEMS: CONSTITUTIONAL: The patient denies weight loss or weight gain. The patient denies fevers or chills. HEENT: The patient denies ear or throat pain. The patient denies headache. CARDIOVASCULAR: The patient denies palpitations or chest pain. CHEST: The patient denies wheeze or shortness of breath. ABDOMEN: The patient denies nausea, vomiting, diarrhea, or constipation. GENITOURINARY: The patient denies dysuria or increased frequency of urination. NEUROMUSCULAR: The patient complains of syncopal episodes as above. The patient denies seizures or generalized weakness. PHYSICAL EXAMINATION: VITAL SIGNS: Temperature 98.5, respirations 18, pulse 103, and blood pressure 104/71. GENERAL: The patient is a well-developed and well-nourished female, in no apparent distress. HEENT: Pupils equal and responsive to light and accommodation. Extraocular movements are intact. NECK: Supple without lymphadenopathy. CHEST: Lungs are clear to auscultation bilaterally without wheezes or rales. CARDIOVASCULAR: Regular rate. S1, S2 normal without murmurs, rubs, or gallops. ABDOMEN: Soft, nontender, and nondistended. Positive bowel sounds. No evidence of hepatosplenomegaly. Currently, no rebound or guarding noted. EXTREMITIES: Negative for clubbing, cyanosis, or edema. RECTAL: Refused. GENITAL: Refused. NEUROLOGIC: Cranial nerves II through XII are grossly intact without focal deficits. Motor strength is 5/5 bilaterally. Deep tendon reflexes are 2+ plantar. LABORATORY STUDIES: WBC 11.5, hemoglobin 14.2, hematocrit 43.4, and platelets 320,000. Sodium 139, potassium 2.6, chloride 100, CO2 27, BUN 18, creatinine 1.5, and glucose 190. BNP elevated at 457. Troponin normal at 0.0. A CT scan of the brain revealed old right occipital infarct, otherwise no acute intracranial bleed, mass effect, or edema. Chest x-ray is reported as no acute disease. ASSESSMENT: This is a 72-year-old female. 1. Syncopal episode. 2. History of cerebrovascular disease. 3. Hypertension. 4. Fibromyalgia. 5. Hypokalemia. TREATMENT: 1. Syncopal episode. A Neurology consultation has been obtained with Dr. Randall Saini. An MRI of the brain is pending. Syncopal episode may be secondary to acute cerebrovascular accident. We will follow recommendations of Neurology. 2. Hypertension. Continue losartan as above. 3. Fibromyalgia. Continue gabapentin as above. 4. Hypokalemia. The patient is receiving intravenous potassium supplementation. Vishal Smalls M.D. DR: ANGELIA JOB#: [id number] CC:
[2018-01-10 06:44] LABS: BASOPHILS % (AUTO) 0.7 % (0.0-2.0); EOSINOPHILS % (AUTO) 3.1 % (0.0-3.0); HEMATOCRIT 37.4 % (37.0-47.0); LYMPHOCYTES % (AUTO) 28.1 % (20.0-45.0); MEAN CORPUSCULAR VOLUME 88 FL (80-99); MONOCYTES % (AUTO) 7.2 % (1.0-10.0); NEUTROPHILS % (AUTO) 60.9 % (45.0-75.0); PLATELET COUNT 252 K/UL (150-450); RED BLOOD COUNT 4.27 M/UL (4.20-5.40); RED CELL DISTRIBUTION WIDTH 11.4 % (11.6-14.8); WHITE BLOOD COUNT 8.5 K/UL (4.8-10.8)
[2018-01-10 06:58] LABS: ALANINE AMINOTRANSFERASE 18 U/L (12-78); ALBUMIN 3.4 G/DL (3.4-5.0); ALKALINE PHOSPHATASE 80 U/L (46-116); ANION GAP 5 mmol/L (5-15); ASPARTATE AMINO TRANSFERASE 18 U/L (15-37); BILIRUBIN,TOTAL 0.4 MG/DL (0.2-1.0); BLOOD UREA NITROGEN 24 mg/dL (7-18); CALCIUM 8.9 MG/DL (8.5-10.1); CARBON DIOXIDE 30 MMOL/L (21-32); CHLORIDE 106 MMOL/L (98-107); CHOLESTEROL 206 MG/DL (< 200); HDL CHOLESTEROL 43 MG/DL (40-60); POTASSIUM 3.2 MMOL/L (3.5-5.1); SODIUM 141 MMOL/L (136-145); TRIGLYCERIDES 129 MG/DL (30-150)
[2018-01-10] MEDS: Methocarbamol 750mg tab ORAL SCH ×3 (08:56→18:12)
[2018-01-10] MEDS: Heparin 5000 units/ml inj SUBQ SCH ×2 (08:57→21:06)
[2018-01-10] MEDS ORDERED: DULoxetine 30mg cap ORAL SCH (09:00)
--- NOTE | 2018-01-10 12:19 | Consultation ---
History of Present Illness General Date patient seen: Jan 10, 2018 Chief Complaint: Syncope Present Illness HPI 72 year old female with hx of HTN, COPD, fibromyalgia, presented to emergency department with a syncopal event. Patient states that she was feeling weak and then subsequently had a syncopal event. No seizure activity was noted. Patient denies any chest pain shortness breath. Symptoms noted to be moderate to severe.No other modifying factors. No other associated signs and symptoms. No other complaints were noted. She was found to have a UTI as well with cloudy urine. She is admitted to telemetry for further management. Allergies: Coded Allergies: IODINE (Verified Allergy, Unknown, 01/22/16) PENICILLINS (Unverified Allergy, Unknown, 08/29/17) SULFA (SULFONAMIDE ANTIBIOTICS) (Unverified Allergy, Unknown, 11/06/17) Uncoded Allergies: ANTIBIOTICS (Allergy, Unknown, 08/14/16) PT. STATE SHE CAN ONLY TAKE SULFA DRUGS. Medication History Scheduled Duloxetine Hcl* (Cymbalta*), 120 MG ORAL DAILY, (Reported) Duloxetine Hcl* (Cymbalta*), 30 MG ORAL DAILY, (Reported) Gabapentin* (Gabapentin*), 1,600 MG ORAL BID, (Reported) Gabapentin* (Neurontin*), 100 MG ORAL THREE TIMES A DAY, (Reported) Ibuprofen* (Motrin*), 600 MG ORAL THREE TIMES A DAY Losartan Potassium* (Losartan Potassium*), Unknown Dose ORAL DAILY, (Reported) Losartan Potassium* (Losartan Potassium*), 25 MG ORAL DAILY, (Reported) Methocarbamol* (Robaxin-750*), 750 MG PO TID Methocarbamol* (Robaxin-750*), 750 MG PO TID Potassium Chloride (Potassium Chloride), 20 MEQ ORAL DAILY Scheduled PRN Acetaminophen With Codeine (T#3) (Tylenol #3 Tab*), 1 TAB ORAL Q8H PRN for For Pain Acetaminophen With Codeine (T#3) (Tylenol #3 Tab*), 1 TAB ORAL Q8H PRN for For Pain Ibuprofen* (Motrin*), 600 MG ORAL Q8H PRN for For Pain Ibuprofen* (Motrin*), 600 MG ORAL Q8H PRN for For Pain Patient History Healthcare decision maker N Resuscitation status Full Code Advanced Directive on File Past Medical/Surgical History Past Medical/Surgical History: (1) Fibromyalgia (2) HTN (hypertension) (3) COPD (chronic obstructive pulmonary disease) Review of Systems All Other Systems: negative except mentioned in HPI Physical Exam General Appearance: WD/WN Lines, tubes and drains: peripheral HEENT: normocephalic, atraumatic Neck: non-tender, supple Respiratory/Chest: chest wall non-tender, normal breath sounds Breasts: no masses Cardiovascular/Chest: normal rate Abdomen: normal bowel sounds, hyperactive bowel sounds Genitourinary/Rectal: normal genital exam, heme negative stool Extremities: normal range of motion, normal inspection Last 24 Hour Vital Signs Date Time Temp Pulse Resp B/P (MAP) Pulse Ox O2 Delivery O2 Flow Rate FiO2 01/10/18 09:54 81 18 Room Air 01/10/18 09:00 Room Air 01/10/18 08:00 97.7 81 18 133/79 (97) 97 97.7 01/10/18 08:00 87 01/10/18 04:00 97.5 80 20 131/79 (96) 95 97.5 01/10/18 03:45 80 01/10/18 00:00 99.0 79 20 130/79 (96) 95 99.0 01/09/18 23:38 83 01/09/18 21:00 Room Air 01/09/18 20:54 86 18 Room Air 01/09/18 20:00 98.2 82 18 116/66 (83) 96 98.2 01/09/18 19:39 79 01/09/18 16:00 93 01/09/18 16:00 97.7 90 106/66 (79) 97.7 01/09/18 15:36 Room Air 01/09/18 15:25 98.4 83 18 109/60 99 Room Air 98.4 01/09/18 13:54 98.4 83 18 109/60 99 Room Air 98.4 Intake and Output 01/09/18 01/10/18 19:00 07:00 Intake Total 500 ml 500 ml Balance 500 ml 500 ml Intake Oral 500 ml 500 ml # Voids 1 3 # Bowel Movements 1 Laboratory Tests Test 01/09/18 12:20 01/09/18 13:40 01/10/18 05:10 White Blood Count 11.5 K/UL (4.8-10.8) H 8.5 K/UL (4.8-10.8) Red Blood Count 4.88 M/UL (4.20-5.40) 4.27 M/UL (4.20-5.40) Hemoglobin 14.2 G/DL (12.0-16.0) 13.0 G/DL (12.0-16.0) Hematocrit 43.4 % (37.0-47.0) 37.4 % (37.0-47.0) Mean Corpuscular Volume 89 FL (80-99) 88 FL (80-99) Mean Corpuscular Hemoglobin 29.1 PG (27.0-31.0) 30.4 PG (27.0-31.0) Mean Corpuscular Hemoglobin Concent 32.7 G/DL (32.0-36.0) 34.7 G/DL (32.0-36.0) Red Cell Distribution Width 11.4 % (11.6-14.8) L 11.4 % (11.6-14.8) L Platelet Count 323 K/UL (150-450) 252 K/UL (150-450) Mean Platelet Volume 6.9 FL (6.5-10.1) 7.2 FL (6.5-10.1) Neutrophils (%) (Auto) 77.8 % (45.0-75.0) H 60.9 % (45.0-75.0) Lymphocytes (%) (Auto) 15.1 % (20.0-45.0) L 28.1 % (20.0-45.0) Monocytes (%) (Auto) 5.6 % (1.0-10.0) 7.2 % (1.0-10.0) Eosinophils (%) (Auto) 0.4 % (0.0-3.0) 3.1 % (0.0-3.0) H Basophils (%) (Auto) 1.0 % (0.0-2.0) 0.7 % (0.0-2.0) Sodium Level 139 MMOL/L (136-145) 141 MMOL/L (136-145) Potassium Level 2.6 MMOL/L (3.5-5.1) *L 3.2 MMOL/L (3.5-5.1) L Chloride Level 100 MMOL/L (98-107) 106 MMOL/L (98-107) Carbon Dioxide Level 27 MMOL/L (21-32) 30 MMOL/L (21-32) Anion Gap 13 mmol/L (5-15) 5 mmol/L (5-15) Blood Urea Nitrogen 18 mg/dL (7-18) 24 mg/dL (7-18) H Creatinine 1.5 MG/DL (0.55-1.30) H 1.0 MG/DL (0.55-1.30) Estimat Glomerular Filtration Rate mL/min (>60) mL/min (>60) Glucose Level 190 MG/DL (74-106) H 113 MG/DL (74-106) H Calcium Level 9.0 MG/DL (8.5-10.1) 8.9 MG/DL (8.5-10.1) Total Bilirubin 0.8 MG/DL (0.2-1.0) 0.4 MG/DL (0.2-1.0) Aspartate Amino Transf (AST/SGOT) 21 U/L (15-37) 18 U/L (15-37) Alanine Aminotransferase (ALT/SGPT) 16 U/L (12-78) 18 U/L (12-78) Alkaline Phosphatase 78 U/L (46-116) 80 U/L (46-116) Total Creatine Kinase 53 U/L (26-308) Creatine Kinase MB 1.5 NG/ML (0.0-3.6) Creatine Kinase MB Relative Index 2.8 Troponin I 0.000 ng/mL (0.000-0.056) Pro-B-Type Natriuretic Peptide 457 pg/mL (0-125) H Total Protein 7.8 G/DL (6.4-8.2) 6.9 G/DL (6.4-8.2) Albumin 3.9 G/DL (3.4-5.0) 3.4 G/DL (3.4-5.0) Globulin 3.9 g/dL 3.5 g/dL Albumin/Globulin Ratio 1.0 (1.0-2.7) 1.0 (1.0-2.7) Urine Color Yellow Urine Appearance Slightly cloudy Urine pH 6.5 (4.5-8.0) Urine Specific [place] 1.015 (1.005-1.035) Urine Protein 3+ (NEGATIVE) H Urine Glucose (UA) 1+ (NEGATIVE) H Urine Ketones 1+ (NEGATIVE) H Urine Blood 2+ (NEGATIVE) H Urine Nitrite Positive (NEGATIVE) H Urine Bilirubin 1+ (NEGATIVE) H Urine Ictotest Negative (NEGATIVE) Urine Urobilinogen 4 MG/DL (0.0-1.0) H Urine Leukocyte Esterase 2+ (NEGATIVE) H Urine RBC 2-4 /HPF (0 - 2) H Urine WBC 5-10 /HPF (0 - 2) H Urine Squamous Epithelial Cells Few /LPF (NONE/OCC) Urine Bacteria Many /HPF (NONE) H Prothrombin Time 10.1 SEC (9.30-11.50) Prothromb Time International Ratio 1.0 (0.9-1.1) Activated Partial Thromboplast Time 28 SEC (23-33) Triglycerides Level 129 MG/DL (30-150) Cholesterol Level 206 MG/DL (< 200) H LDL Cholesterol 145 mg/dL (<100) H HDL Cholesterol 43 MG/DL (40-60) Cholesterol/HDL Ratio 4.8 (3.3-4.4) H Thyroid Stimulating Hormone (TSH) 0.539 uiU/mL (0.358-3.740) Microbiology Date/Time Source Procedure Growth Status 01/09/18 13:40 Urine,Clean Catch Urine Culture - Preliminary Gram Negative Bacillus 1 Resulted Height (Feet): 5 Height (Inches): 3.00 Weight (Pounds): 160 Medications Current Medications Medications (Trade) Dose Ordered Sig/Terry Route PRN Reason Start Time Stop Time Status Last Admin Dose Admin Acetaminophen (Tylenol) 650 mg Q4H PRN ORAL fever (temp>100.5F) 01/09/18 17:30 02/08/18 17:29 Al Hydroxide/Mg Hydroxide (Mylanta II) 30 ml Q6H PRN ORAL dyspepsia 01/09/18 17:30 02/08/18 17:29 Albuterol/ Ipratropium (Albuterol/ Ipratropium) 3 ml Q4H PRN HHN Shortness of Breath 01/09/18 17:30 01/14/18 17:29 Clonidine HCl (Catapres Tab) 0.1 mg Q4H PRN ORAL For High Blood Pressure 01/09/18 17:30 02/08/18 17:29 Dextrose (Dextrose 50%) 25 ml Q30M PRN IV Hypoglycemia 01/09/18 17:30 02/08/18 17:29 Dextrose (Dextrose 50%) 50 ml Q30M PRN IV Hypoglycemia 01/09/18 17:30 02/08/18 17:29 Diphenhydramine HCl (Benadryl) 25 mg Q8H PRN ORAL Itching 01/09/18 21:30 02/08/18 21:29 Duloxetine HCl (Cymbalta) 30 mg DAILY ORAL 01/10/18 09:00 02/09/18 08:59 01/10/18 08:56 Gabapentin (Neurontin) 1,600 mg BID ORAL 01/10/18 09:00 02/09/18 08:59 01/10/18 08:56 Heparin Sodium (Porcine) (Heparin 5000 units/ml) 5,000 units EVERY 12 HOURS SUBQ 01/09/18 21:00 02/08/18 20:59 01/10/18 08:57 Lorazepam (Ativan 2mg/ml 1ml) 0.5 mg Q4H PRN IV For Anxiety 01/09/18 17:30 01/16/18 17:29 Methocarbamol (Robaxin) 750 mg TID ORAL 01/09/18 18:00 02/08/18 17:59 01/10/18 08:56 Morphine Sulfate (Morphine Sulfate) 1 mg Q4H PRN IVP For Pain 7-10 01/09/18 17:30 01/16/18 17:29 01/09/18 21:21 Nitroglycerin (Ntg) 0.4 mg Q5M X 3 DOSES PRN SL Prn Chest Pain 01/09/18 17:30 02/08/18 17:29 Ondansetron HCl (Zofran) 4 mg Q6H PRN IVP Nausea & Vomiting 01/09/18 17:30 02/08/18 17:29 Polyethylene Glycol (Miralax) 17 gm HSPRN PRN ORAL Constipation 01/09/18 17:30 02/08/18 17:29 Potassium Chloride (K-Dur) 40 meq ONCE ORAL 01/10/18 11:15 01/10/18 13:00 01/10/18 11:50 Temazepam (Restoril) 15 mg HSPRN PRN ORAL Insomnia 01/09/18 17:30 01/16/18 17:29 01/10/18 03:11 Assessment/Plan Problem List: (1) Acute encephalopathy ICD Codes: G93.40 - Encephalopathy, unspecified SNOMED: 46842033, 683721753 (2) UTI (urinary tract infection) ICD Codes: N39.0 - Urinary tract infection, site not specified SNOMED: 85353052 (3) COPD (chronic obstructive pulmonary disease) ICD Codes: J44.9 - Chronic obstructive pulmonary disease, unspecified SNOMED: 93555853 (4) HTN (hypertension) ICD Codes: I10 - Essential (primary) hypertension SNOMED: 45621418 (5) Fibromyalgia ICD Codes: M79.7 - Fibromyalgia SNOMED: 836591750 Assessment/Plan telemetry monitoring check urine cultures echo, doppler of carotid artery respiratory treatment prn check electrolytes iv fluids dvt prophylaxis Andres Otoole MD Jan 10, 2018 12:18
--- NOTE | 2018-01-10 14:23 | Cardiology Report ---
APPROVED REPORT EXAM: Two-dimensional and M-mode echocardiogram with Doppler and color Doppler. INDICATION LV function M-Mode DIMENSIONS IVSd1.1 (0.7-1.1cm)Left Atrium (MM)3.3 (1.6-4.0cm) LVDd5.0 (3.5-5.6cm)Aortic Root3.2 (2.0-3.7cm) PWd0.9 (0.7-1.1cm)Aortic Cusp Exc.1.5 (1.5-2.0cm) LVDs3.2 (2.5-4.0cm) PWs1.0 cm Normal left ventricular chamber size, systolic function and wall motion. Left ventricular ejection fraction estimated to be 65 %. Mild left ventricular hypertrophy. Anterior Echo-free space, may be due to pericardial fat or effusion. All other cardiac chamber sizes are within normal limits. Focal aortic valve sclerosis with adequate cusp excursion. Thickened mitral valve leaflets with normal excursion. Mitral annulus and aortic root calcification. Pulmonic valve not well visualized. Normal tricuspid valve structure. IVC at normal size with physiologic collapse. A color flow and spectral Doppler study was performed and revealed: Trace mitral regurgitation. Mitral diastolic velocities suggest reduced left ventricular relaxation c/w mild LV diastolic dysfunction (Grade I ). Trace tricuspid regurgitation. Tricuspid systolic velocities suggests peak right ventricular systolic pressure of 20 mmHg.
--- NOTE | 2018-01-10 14:30 | Diagnostic Imaging Report ---
Indication: Syncope Technique: sagittal T1 fast spin echo, axial T1 FLAIR, axial T2 FLAIR, axial T2 FS PROPELLER, axial T2* GRE, axial diffusion weighted images. ADC and exponential ADC maps generated Comparison: CT brain 01/09/2018 Findings: No abnormal areas of restricted diffusion to suggest acute infarction. No acute hemorrhage or edema. Small focus of encephalomalacia is seen at the border of the right temporal and occipital lobes, corresponding to abnormality reported on recent CT scan. No mass effect nor midline shift. There is age-related enlargement of the ventricles and extra axial CSF space spaces. There is periventricular deep white matter low-attenuation, consistent with chronic ischemic change. Visualized orbits and sinuses are unremarkable. Impression: Negative for acute intracranial bleed or mass effect Chronic and age-related changes, as described
[2018-01-10] MEDS: cefTRIAXone 1 GM in D5W 55 ML IVPB SCH (14:51)
--- NOTE | 2018-01-10 15:34 | Consultation ---
History of Present Illness General Chief Complaint: Syncope Present Illness HPI 72-year-old female, presents with weakness and low energy. the pt pw depressed mood, anhedonia, and anxiety. the pt in addition has irritable mood and pain. the pt doesnt endorse si/hi. Allergies: Coded Allergies: IODINE (Verified Allergy, Unknown, 01/22/16) PENICILLINS (Unverified Allergy, Unknown, 08/29/17) SULFA (SULFONAMIDE ANTIBIOTICS) (Unverified Allergy, Unknown, 11/06/17) Uncoded Allergies: ANTIBIOTICS (Allergy, Unknown, 08/14/16) PT. STATE SHE CAN ONLY TAKE SULFA DRUGS. Medication History Scheduled Duloxetine Hcl* (Cymbalta*), 120 MG ORAL DAILY, (Reported) Duloxetine Hcl* (Cymbalta*), 30 MG ORAL DAILY, (Reported) Gabapentin* (Gabapentin*), 1,600 MG ORAL BID, (Reported) Gabapentin* (Neurontin*), 100 MG ORAL THREE TIMES A DAY, (Reported) Ibuprofen* (Motrin*), 600 MG ORAL THREE TIMES A DAY Losartan Potassium* (Losartan Potassium*), Unknown Dose ORAL DAILY, (Reported) Losartan Potassium* (Losartan Potassium*), 25 MG ORAL DAILY, (Reported) Methocarbamol* (Robaxin-750*), 750 MG PO TID Methocarbamol* (Robaxin-750*), 750 MG PO TID Potassium Chloride (Potassium Chloride), 20 MEQ ORAL DAILY Scheduled PRN Acetaminophen With Codeine (T#3) (Tylenol #3 Tab*), 1 TAB ORAL Q8H PRN for For Pain Acetaminophen With Codeine (T#3) (Tylenol #3 Tab*), 1 TAB ORAL Q8H PRN for For Pain Ibuprofen* (Motrin*), 600 MG ORAL Q8H PRN for For Pain Ibuprofen* (Motrin*), 600 MG ORAL Q8H PRN for For Pain Patient History Limited by: medical condition History Provided By: Patient, Medical Record, PMD Healthcare decision maker N Resuscitation status Full Code Advanced Directive on File Past Medical/Surgical History Past Medical/Surgical History: (1) Acute encephalopathy (2) Multiple rib fractures (3) Hyponatremia (4) Abd pain, nausea/emesis, diarrhea (5) Hypomagnesemia (6) Pre-syncope (7) Hand contusion (8) Episode of generalized weakness (9) Back pain (10) Dehydration (11) Hypotension (12) Hypokalemia (13) UTI (urinary tract infection) (14) Fibromyalgia (15) HTN (hypertension) (16) COPD (chronic obstructive pulmonary disease) Review of Systems Musculoskeletal: Reports: back pain Psychiatric: Reports: prior hx, anxiety, depressed feelings, emotional problems Physical Exam General Appearance: no apparent distress, alert Neurologic: oriented x 3, responsive, depressed affect Last 24 Hour Vital Signs Date Time Temp Pulse Resp B/P (MAP) Pulse Ox O2 Delivery O2 Flow Rate FiO2 01/10/18 12:00 97.3 78 18 149/96 (113) 96 97.3 01/10/18 12:00 74 01/10/18 09:54 81 18 Room Air 01/10/18 09:00 Room Air 01/10/18 08:00 97.7 81 18 133/79 (97) 97 97.7 01/10/18 08:00 87 01/10/18 04:00 97.5 80 20 131/79 (96) 95 97.5 01/10/18 03:45 80 01/10/18 00:00 99.0 79 20 130/79 (96) 95 99.0 01/09/18 23:38 83 01/09/18 21:00 Room Air 01/09/18 20:54 86 18 Room Air 01/09/18 20:00 98.2 82 18 116/66 (83) 96 98.2 01/09/18 19:39 79 01/09/18 16:00 93 01/09/18 16:00 97.7 90 106/66 (79) 97.7 01/09/18 15:36 Room Air Intake and Output 01/09/18 01/10/18 19:00 07:00 Intake Total 500 ml 500 ml Balance 500 ml 500 ml Intake Oral 500 ml 500 ml # Voids 1 3 # Bowel Movements 1 Laboratory Tests Test 01/10/18 05:10 White Blood Count 8.5 K/UL (4.8-10.8) Red Blood Count 4.27 M/UL (4.20-5.40) Hemoglobin 13.0 G/DL (12.0-16.0) Hematocrit 37.4 % (37.0-47.0) Mean Corpuscular Volume 88 FL (80-99) Mean Corpuscular Hemoglobin 30.4 PG (27.0-31.0) Mean Corpuscular Hemoglobin Concent 34.7 G/DL (32.0-36.0) Red Cell Distribution Width 11.4 % (11.6-14.8) L Platelet Count 252 K/UL (150-450) Mean Platelet Volume 7.2 FL (6.5-10.1) Neutrophils (%) (Auto) 60.9 % (45.0-75.0) Lymphocytes (%) (Auto) 28.1 % (20.0-45.0) Monocytes (%) (Auto) 7.2 % (1.0-10.0) Eosinophils (%) (Auto) 3.1 % (0.0-3.0) H Basophils (%) (Auto) 0.7 % (0.0-2.0) Prothrombin Time 10.1 SEC (9.30-11.50) Prothromb Time International Ratio 1.0 (0.9-1.1) Activated Partial Thromboplast Time 28 SEC (23-33) Sodium Level 141 MMOL/L (136-145) Potassium Level 3.2 MMOL/L (3.5-5.1) L Chloride Level 106 MMOL/L (98-107) Carbon Dioxide Level 30 MMOL/L (21-32) Anion Gap 5 mmol/L (5-15) Blood Urea Nitrogen 24 mg/dL (7-18) H Creatinine 1.0 MG/DL (0.55-1.30) Estimat Glomerular Filtration Rate mL/min (>60) Glucose Level 113 MG/DL (74-106) H Calcium Level 8.9 MG/DL (8.5-10.1) Total Bilirubin 0.4 MG/DL (0.2-1.0) Aspartate Amino Transf (AST/SGOT) 18 U/L (15-37) Alanine Aminotransferase (ALT/SGPT) 18 U/L (12-78) Alkaline Phosphatase 80 U/L (46-116) Total Protein 6.9 G/DL (6.4-8.2) Albumin 3.4 G/DL (3.4-5.0) Globulin 3.5 g/dL Albumin/Globulin Ratio 1.0 (1.0-2.7) Triglycerides Level 129 MG/DL (30-150) Cholesterol Level 206 MG/DL (< 200) H LDL Cholesterol 145 mg/dL (<100) H HDL Cholesterol 43 MG/DL (40-60) Cholesterol/HDL Ratio 4.8 (3.3-4.4) H Thyroid Stimulating Hormone (TSH) 0.539 uiU/mL (0.358-3.740) Height (Feet): 5 Height (Inches): 3.00 Weight (Pounds): 160 Medications Current Medications Medications (Trade) Dose Ordered Sig/Terry Route PRN Reason Start Time Stop Time Status Last Admin Dose Admin Acetaminophen (Tylenol) 650 mg Q4H PRN ORAL fever (temp>100.5F) 01/09/18 17:30 02/08/18 17:29 Al Hydroxide/Mg Hydroxide (Mylanta II) 30 ml Q6H PRN ORAL dyspepsia 01/09/18 17:30 02/08/18 17:29 Albuterol/ Ipratropium (Albuterol/ Ipratropium) 3 ml Q4H PRN HHN Shortness of Breath 01/09/18 17:30 01/14/18 17:29 Ceftriaxone Sodium 1 gm/ Dextrose 55 ml @ 110 mls/hr Q24H IVPB 01/10/18 15:00 01/17/18 14:59 01/10/18 14:51 Clonidine HCl (Catapres Tab) 0.1 mg Q4H PRN ORAL For High Blood Pressure 01/09/18 17:30 02/08/18 17:29 Dextrose (Dextrose 50%) 25 ml Q30M PRN IV Hypoglycemia 01/09/18 17:30 02/08/18 17:29 Dextrose (Dextrose 50%) 50 ml Q30M PRN IV Hypoglycemia 01/09/18 17:30 02/08/18 17:29 Diphenhydramine HCl (Benadryl) 25 mg Q8H PRN ORAL Itching 01/09/18 21:30 02/08/18 21:29 Duloxetine HCl (Cymbalta) 30 mg DAILY ORAL 01/10/18 09:00 02/09/18 08:59 01/10/18 08:56 Gabapentin (Neurontin) 1,600 mg BID ORAL 01/10/18 09:00 02/09/18 08:59 01/10/18 08:56 Heparin Sodium (Porcine) (Heparin 5000 units/ml) 5,000 units EVERY 12 HOURS SUBQ 01/09/18 21:00 02/08/18 20:59 01/10/18 08:57 Lorazepam (Ativan 2mg/ml 1ml) 0.5 mg Q4H PRN IV For Anxiety 01/09/18 17:30 01/16/18 17:29 Methocarbamol (Robaxin) 750 mg TID ORAL 01/09/18 18:00 02/08/18 17:59 01/10/18 13:27 Morphine Sulfate (Morphine Sulfate) 1 mg Q4H PRN IVP For Pain 7-10 01/09/18 17:30 01/16/18 17:29 01/09/18 21:21 Nitroglycerin (Ntg) 0.4 mg Q5M X 3 DOSES PRN SL Prn Chest Pain 01/09/18 17:30 02/08/18 17:29 Ondansetron HCl (Zofran) 4 mg Q6H PRN IVP Nausea & Vomiting 01/09/18 17:30 02/08/18 17:29 Polyethylene Glycol (Miralax) 17 gm HSPRN PRN ORAL Constipation 01/09/18 17:30 02/08/18 17:29 Temazepam (Restoril) 15 mg HSPRN PRN ORAL Insomnia 01/09/18 17:30 01/16/18 17:29 01/10/18 03:11 Assessment/Plan Problem List: (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
--- NOTE | 2018-01-10 20:07 | Internal Med Progress Note ---
Subjective Date of Service: Jan 10, 2018 Physician Name Vishal Smalls Attending Physician Morris Rizo MD Current Medications Medications (Trade) Dose Ordered Sig/Terry Route PRN Reason Start Time Stop Time Status Last Admin Dose Admin Acetaminophen (Tylenol) 650 mg Q4H PRN ORAL fever (temp>100.5F) 01/09/18 17:30 02/08/18 17:29 Al Hydroxide/Mg Hydroxide (Mylanta II) 30 ml Q6H PRN ORAL dyspepsia 01/09/18 17:30 02/08/18 17:29 Albuterol/ Ipratropium (Albuterol/ Ipratropium) 3 ml Q4H PRN HHN Shortness of Breath 01/09/18 17:30 01/14/18 17:29 Ceftriaxone Sodium 1 gm/ Dextrose 55 ml @ 110 mls/hr Q24H IVPB 01/10/18 15:00 01/17/18 14:59 01/10/18 14:51 Clonidine HCl (Catapres Tab) 0.1 mg Q4H PRN ORAL For High Blood Pressure 01/09/18 17:30 02/08/18 17:29 Dextrose (Dextrose 50%) 25 ml Q30M PRN IV Hypoglycemia 01/09/18 17:30 02/08/18 17:29 Dextrose (Dextrose 50%) 50 ml Q30M PRN IV Hypoglycemia 01/09/18 17:30 02/08/18 17:29 Diphenhydramine HCl (Benadryl) 25 mg Q8H PRN ORAL Itching 01/09/18 21:30 02/08/18 21:29 01/10/18 18:16 Duloxetine HCl (Cymbalta) 90 mg DAILY ORAL 01/11/18 09:00 02/10/18 08:59 Gabapentin (Neurontin) 1,600 mg BID ORAL 01/10/18 09:00 02/09/18 08:59 01/10/18 18:12 Heparin Sodium (Porcine) (Heparin 5000 units/ml) 5,000 units EVERY 12 HOURS SUBQ 01/09/18 21:00 02/08/18 20:59 01/10/18 08:57 Lorazepam (Ativan 2mg/ml 1ml) 0.5 mg Q4H PRN IV For Anxiety 01/09/18 17:30 01/16/18 17:29 Methocarbamol (Robaxin) 750 mg TID ORAL 01/09/18 18:00 02/08/18 17:59 01/10/18 18:12 Morphine Sulfate (Morphine Sulfate) 1 mg Q4H PRN IVP For Pain 7-10 01/09/18 17:30 01/16/18 17:29 01/09/18 21:21 Nitroglycerin (Ntg) 0.4 mg Q5M X 3 DOSES PRN SL Prn Chest Pain 01/09/18 17:30 02/08/18 17:29 Ondansetron HCl (Zofran) 4 mg Q6H PRN IVP Nausea & Vomiting 01/09/18 17:30 02/08/18 17:29 Polyethylene Glycol (Miralax) 17 gm HSPRN PRN ORAL Constipation 01/09/18 17:30 02/08/18 17:29 Temazepam (Restoril) 15 mg HSPRN PRN ORAL Insomnia 01/09/18 17:30 01/16/18 17:29 01/10/18 03:11 Allergies: Coded Allergies: IODINE (Verified Allergy, Unknown, 01/22/16) PENICILLINS (Unverified Allergy, Unknown, 08/29/17) SULFA (SULFONAMIDE ANTIBIOTICS) (Unverified Allergy, Unknown, 11/06/17) Uncoded Allergies: ANTIBIOTICS (Allergy, Unknown, 08/14/16) PT. STATE SHE CAN ONLY TAKE SULFA DRUGS. ROS Limited/Unobtainable: No Constitutional: Reports: no symptoms HEENT: Reports: no symptoms Cardiovascular: Reports: no symptoms Respiratory: Reports: no symptoms Gastrointestinal/Abdominal: Reports: no symptoms Genitourinary: Reports: no symptoms Neurologic/Psychiatric: Reports: no symptoms Subjective 72 YO F admitted with syncope. Cover for Int Jerod-Dr Rizo. Await MRI brain Objective Last Vital Signs Date Time Temp Pulse Resp B/P (MAP) Pulse Ox O2 Delivery O2 Flow Rate FiO2 01/10/18 17:06 77 18 139/84 (102) 97 01/10/18 16:00 97.7 97.7 01/10/18 09:54 Room Air Laboratory Tests Test 01/10/18 05:10 White Blood Count 8.5 K/UL (4.8-10.8) Red Blood Count 4.27 M/UL (4.20-5.40) Hemoglobin 13.0 G/DL (12.0-16.0) Hematocrit 37.4 % (37.0-47.0) Mean Corpuscular Volume 88 FL (80-99) Mean Corpuscular Hemoglobin 30.4 PG (27.0-31.0) Mean Corpuscular Hemoglobin Concent 34.7 G/DL (32.0-36.0) Red Cell Distribution Width 11.4 % (11.6-14.8) L Platelet Count 252 K/UL (150-450) Mean Platelet Volume 7.2 FL (6.5-10.1) Neutrophils (%) (Auto) 60.9 % (45.0-75.0) Lymphocytes (%) (Auto) 28.1 % (20.0-45.0) Monocytes (%) (Auto) 7.2 % (1.0-10.0) Eosinophils (%) (Auto) 3.1 % (0.0-3.0) H Basophils (%) (Auto) 0.7 % (0.0-2.0) Prothrombin Time 10.1 SEC (9.30-11.50) Prothromb Time International Ratio 1.0 (0.9-1.1) Activated Partial Thromboplast Time 28 SEC (23-33) Sodium Level 141 MMOL/L (136-145) Potassium Level 3.2 MMOL/L (3.5-5.1) L Chloride Level 106 MMOL/L (98-107) Carbon Dioxide Level 30 MMOL/L (21-32) Anion Gap 5 mmol/L (5-15) Blood Urea Nitrogen 24 mg/dL (7-18) H Creatinine 1.0 MG/DL (0.55-1.30) Estimat Glomerular Filtration Rate mL/min (>60) Glucose Level 113 MG/DL (74-106) H Calcium Level 8.9 MG/DL (8.5-10.1) Total Bilirubin 0.4 MG/DL (0.2-1.0) Aspartate Amino Transf (AST/SGOT) 18 U/L (15-37) Alanine Aminotransferase (ALT/SGPT) 18 U/L (12-78) Alkaline Phosphatase 80 U/L (46-116) Total Protein 6.9 G/DL (6.4-8.2) Albumin 3.4 G/DL (3.4-5.0) Globulin 3.5 g/dL Albumin/Globulin Ratio 1.0 (1.0-2.7) Triglycerides Level 129 MG/DL (30-150) Cholesterol Level 206 MG/DL (< 200) H LDL Cholesterol 145 mg/dL (<100) H HDL Cholesterol 43 MG/DL (40-60) Cholesterol/HDL Ratio 4.8 (3.3-4.4) H Thyroid Stimulating Hormone (TSH) 0.539 uiU/mL (0.358-3.740) Microbiology Date/Time Source Procedure Growth Status 01/09/18 13:40 Urine,Clean Catch Urine Culture - Preliminary Gram Negative Bacillus 1 Resulted Intake and Output 01/09/18 01/10/18 19:00 07:00 Intake Total 500 ml 500 ml Balance 500 ml 500 ml Intake Oral 500 ml 500 ml # Voids 1 3 # Bowel Movements 1 Objective HYSICAL EXAMINATION: GENERAL: The patient is a well-developed and well-nourished female, in no apparent distress. HEENT: Pupils equal and responsive to light and accommodation. Extraocular movements are intact. NECK: Supple without lymphadenopathy. CHEST: Lungs are clear to auscultation bilaterally without wheezes or rales. CARDIOVASCULAR: Regular rate. S1, S2 normal without murmurs, rubs, or gallops. ABDOMEN: Soft, nontender, and nondistended. Positive bowel sounds. No evidence of hepatosplenomegaly. Currently, no rebound or guarding noted. EXTREMITIES: Negative for clubbing, cyanosis, or edema. RECTAL: Refused. GENITAL: Refused. NEUROLOGIC: Cranial nerves II through XII are grossly intact without focal deficits. Motor strength is 5/5 bilaterally. Deep tendon reflexes are 2+ Assessment/Plan Problem List: (1) Cerebral vascular disease Assessment & Plan: Await MRI brain to R/O acute CVA (2) Syncope (3) HTN (hypertension) Assessment & Plan: Continue prn clonidine (4) Fibromyalgia (5) Hypokalemia Assessment & Plan: Replace with oral KCL (6) Acute encephalopathy Status: progressing Vishal Smalls MD Jan 10, 2018 20:07
[2018-01-11] VITALS (7 sets, daily range): BP systolic 112–165; BP diastolic 75–101
[2018-01-11 07:45] LABS: BASOPHILS % (AUTO) 1.4 % (0.0-2.0); EOSINOPHILS % (AUTO) 4.7 % (0.0-3.0); HEMATOCRIT 40.3 % (37.0-47.0); HEMOGLOBIN 13.8 G/DL (12.0-16.0); LYMPHOCYTES % (AUTO) 30.4 % (20.0-45.0); MEAN CORPUSCULAR VOLUME 88 FL (80-99); MONOCYTES % (AUTO) 7.7 % (1.0-10.0); NEUTROPHILS % (AUTO) 55.9 % (45.0-75.0); PLATELET COUNT 262 K/UL (150-450); RED BLOOD COUNT 4.56 M/UL (4.20-5.40); RED CELL DISTRIBUTION WIDTH 11.2 % (11.6-14.8); WHITE BLOOD COUNT 7.9 K/UL (4.8-10.8)
[2018-01-11 08:02] LABS: ANION GAP 4 mmol/L (5-15); BLOOD UREA NITROGEN 19 mg/dL (7-18); CALCIUM 9.3 MG/DL (8.5-10.1); CARBON DIOXIDE 32 MMOL/L (21-32); CHLORIDE 107 MMOL/L (98-107); CREATININE 0.8 MG/DL (0.55-1.30); POTASSIUM 3.6 MMOL/L (3.5-5.1); SODIUM 143 MMOL/L (136-145)
--- NOTE | 2018-01-11 08:15 | Pulmonology Progress Note ---
Assessment/Plan Assessment/Plan ASSESSMENT syncopal episode UTI with E. coli SOLOMON, present on admission- resolved dehydration , leading to hypovolemia HTN Hyperlipidemia cerebrovascular disease with hx of CVA fibromyalgia hypokalemia major depression in partial remission PLAN OF CARE telemetry CT head and MRI of the brain negative Carotid duplex essentially negative. telemetry -no evidence of arrhythmia Echo with pEF of 65% and RVSP of 20 check orthostatic VS BP management start losartan , Clonidine prn, up titrate further as needed lipid panel with elevated TC and LDL start statin and a/PLT therapy syncopal episode was probably due to hypovolemia brought in by dehydration, which also resulted in SOLOMON Venous Duplex DVT prophylaxis O2 HHN prn urine culture+ E. coli , abx monitor renal parameters and lytes , avoid nephrotoxic, correct lytes prn pain management bowel regimen replace e/lytes prn psych meds adjusted as per psychiatrist case discussed and evaluated by supervising physician Subjective Allergies: Coded Allergies: IODINE (Verified Allergy, Unknown, 01/22/16) PENICILLINS (Unverified Allergy, Unknown, 08/29/17) SULFA (SULFONAMIDE ANTIBIOTICS) (Unverified Allergy, Unknown, 11/06/17) Uncoded Allergies: ANTIBIOTICS (Allergy, Unknown, 08/14/16) PT. STATE SHE CAN ONLY TAKE SULFA DRUGS. Subjective leukocytosis resolved, K stable c/o SOB no hx of asthma/COPD, remote hx of smoking pulse ox stable on RA BP not controlled creat down to normal Objective Last 24 Hour Vital Signs Date Time Temp Pulse Resp B/P (MAP) Pulse Ox O2 Delivery O2 Flow Rate FiO2 01/11/18 04:00 71 01/11/18 04:00 97.5 71 18 156/101 (119) 100 97.5 01/11/18 00:00 97.7 72 20 144/94 (111) 100 97.7 01/11/18 00:00 72 01/10/18 21:00 Room Air 01/10/18 20:44 97 18 Room Air 01/10/18 20:00 98.5 80 18 142/79 (100) 96 98.5 01/10/18 20:00 80 01/10/18 17:06 77 18 139/84 (102) 97 01/10/18 17:06 88 01/10/18 16:00 97.7 87 18 158/75 (102) 97 97.7 01/10/18 12:00 97.3 78 18 149/96 (113) 96 97.3 01/10/18 12:00 74 01/10/18 09:54 81 18 Room Air 01/10/18 09:00 Room Air Intake and Output 01/10/18 01/11/18 19:00 07:00 Intake Total 480 ml 800 ml Balance 480 ml 800 ml Intake Oral 480 ml 800 ml # Voids 4 2 # Bowel Movements 2 General Appearance: WD/WN, no acute distress HEENT: normocephalic, atraumatic, anicteric, mucous membranes moist Respiratory/Chest: lungs clear, no respiratory distress, no accessory muscle use Cardiovascular: normal rate, regular rhythm - SR Abdomen: normal bowel sounds, soft, non tender, non distended Extremities: no edema, pedal pulses normal Neurologic/Psychiatric: alert, oriented x 3, responsive Musculoskeletal: normal muscle bulk Microbiology Date/Time Source Procedure Growth Status 01/09/18 13:40 Urine,Clean Catch Urine Culture - Final Escherichia Coli Complete Laboratory Tests 01/11/18 07:10: White Blood Count 7.9, Red Blood Count 4.56, Hemoglobin 13.8, Hematocrit 40.3, Mean Corpuscular Volume 88, Mean Corpuscular Hemoglobin 30.2, Mean Corpuscular Hemoglobin Concent 34.2, Red Cell Distribution Width 11.2L, Platelet Count 262, Mean Platelet Volume 6.7, Neutrophils (%) (Auto) 55.9, Lymphocytes (%) (Auto) 30.4, Monocytes (%) (Auto) 7.7, Eosinophils (%) (Auto) 4.7H, Basophils (%) (Auto ) 1.4, Sodium Level 143, Potassium Level 3.6, Chloride Level 107, Carbon Dioxide Level 32, Anion Gap 4L, Blood Urea Nitrogen 19H, Creatinine 0.8, Estimat Glomerular Filtration Rate , Glucose Level 92, Calcium Level 9.3 Current Medications Medications (Trade) Dose Ordered Sig/Terry Route PRN Reason Start Time Stop Time Status Last Admin Dose Admin Acetaminophen (Tylenol) 650 mg Q4H PRN ORAL fever (temp>100.5F) 01/09/18 17:30 02/08/18 17:29 Al Hydroxide/Mg Hydroxide (Mylanta II) 30 ml Q6H PRN ORAL dyspepsia 01/09/18 17:30 02/08/18 17:29 Albuterol/ Ipratropium (Albuterol/ Ipratropium) 3 ml Q4H PRN HHN Shortness of Breath 01/09/18 17:30 01/14/18 17:29 Ceftriaxone Sodium 1 gm/ Dextrose 55 ml @ 110 mls/hr Q24H IVPB 01/10/18 15:00 01/17/18 14:59 01/10/18 14:51 Clonidine HCl (Catapres Tab) 0.1 mg Q4H PRN ORAL For High Blood Pressure 01/09/18 17:30 02/08/18 17:29 Dextrose (Dextrose 50%) 25 ml Q30M PRN IV Hypoglycemia 01/09/18 17:30 02/08/18 17:29 Dextrose (Dextrose 50%) 50 ml Q30M PRN IV Hypoglycemia 01/09/18 17:30 02/08/18 17:29 Diphenhydramine HCl (Benadryl) 25 mg Q8H PRN ORAL Itching 01/09/18 21:30 02/08/18 21:29 01/10/18 18:16 Duloxetine HCl (Cymbalta) 90 mg DAILY ORAL 01/11/18 09:00 02/10/18 08:59 Gabapentin (Neurontin) 1,600 mg BID ORAL 01/10/18 09:00 02/09/18 08:59 01/10/18 18:12 Heparin Sodium (Porcine) (Heparin 5000 units/ml) 5,000 units EVERY 12 HOURS SUBQ 01/09/18 21:00 02/08/18 20:59 01/10/18 21:06 Lorazepam (Ativan 2mg/ml 1ml) 0.5 mg Q4H PRN IV For Anxiety 01/09/18 17:30 01/16/18 17:29 Methocarbamol (Robaxin) 750 mg TID ORAL 01/09/18 18:00 02/08/18 17:59 01/10/18 18:12 Morphine Sulfate (Morphine Sulfate) 1 mg Q4H PRN IVP For Pain 7-10 01/09/18 17:30 01/16/18 17:29 01/09/18 21:21 Nitroglycerin (Ntg) 0.4 mg Q5M X 3 DOSES PRN SL Prn Chest Pain 01/09/18 17:30 02/08/18 17:29 Ondansetron HCl (Zofran) 4 mg Q6H PRN IVP Nausea & Vomiting 01/09/18 17:30 02/08/18 17:29 Polyethylene Glycol (Miralax) 17 gm HSPRN PRN ORAL Constipation 01/09/18 17:30 02/08/18 17:29 Temazepam (Restoril) 15 mg HSPRN PRN ORAL Insomnia 01/09/18 17:30 01/16/18 17:29 01/10/18 03:11 Kathy Givens [employer] Jan 11, 2018 08:15
[2018-01-11] MEDS: Aspirin EC 81mg tab ORAL SCH (08:54)
[2018-01-11] MEDS: DULoxetine 30mg cap ORAL SCH (08:55)
[2018-01-11] MEDS: Losartan 25mg tab ORAL SCH (08:55)
[2018-01-11] MEDS: Methocarbamol 750mg tab ORAL SCH ×3 (08:57→17:17)
[2018-01-11] MEDS: Heparin 5000 units/ml inj SUBQ SCH ×2 (09:05→21:16)
[2018-01-11] MEDS: Morphine Sulfate 2mg/ml Inj IVP PRN (09:45)
[2018-01-11] MEDS ORDERED: Losartan 25mg tab ORAL SCH (11:30)
[2018-01-11] MEDS: cefTRIAXone 1 GM in D5W 55 ML IVPB SCH (15:20)
--- NOTE | 2018-01-11 17:01 | Internal Med Progress Note ---
Subjective Date of Service: Jan 11, 2018 Physician Name Smalls,Vishal Attending Physician Morris Rizo MD Current Medications Medications (Trade) Dose Ordered Sig/Terry Route PRN Reason Start Time Stop Time Status Last Admin Dose Admin Acetaminophen (Tylenol) 650 mg Q4H PRN ORAL fever (temp>100.5F) 01/09/18 17:30 02/08/18 17:29 Al Hydroxide/Mg Hydroxide (Mylanta II) 30 ml Q6H PRN ORAL dyspepsia 01/09/18 17:30 02/08/18 17:29 Albuterol/ Ipratropium (Albuterol/ Ipratropium) 3 ml Q4H PRN HHN Shortness of Breath 01/09/18 17:30 01/14/18 17:29 Aspirin (Ecotrin) 81 mg DAILY ORAL 01/11/18 09:00 02/10/18 08:59 01/11/18 08:54 Atorvastatin Calcium (Lipitor) 10 mg BEDTIME ORAL 01/11/18 21:00 02/10/18 20:59 Ceftriaxone Sodium 1 gm/ Dextrose 55 ml @ 110 mls/hr Q24H IVPB 01/10/18 15:00 01/17/18 14:59 01/11/18 15:20 Clonidine HCl (Catapres Tab) 0.1 mg Q4H PRN ORAL For High Blood Pressure 01/09/18 17:30 02/08/18 17:29 Dextrose (Dextrose 50%) 25 ml Q30M PRN IV Hypoglycemia 01/09/18 17:30 02/08/18 17:29 Dextrose (Dextrose 50%) 50 ml Q30M PRN IV Hypoglycemia 01/09/18 17:30 02/08/18 17:29 Diphenhydramine HCl (Benadryl) 25 mg Q8H PRN ORAL Itching 01/09/18 21:30 02/08/18 21:29 01/10/18 18:16 Duloxetine HCl (Cymbalta) 90 mg DAILY ORAL 01/11/18 09:00 02/10/18 08:59 01/11/18 08:55 Gabapentin (Neurontin) 1,600 mg BID ORAL 01/10/18 09:00 02/09/18 08:59 01/11/18 08:55 Heparin Sodium (Porcine) (Heparin 5000 units/ml) 5,000 units EVERY 12 HOURS SUBQ 01/09/18 21:00 02/08/18 20:59 01/11/18 09:05 Lorazepam (Ativan 2mg/ml 1ml) 0.5 mg Q4H PRN IV For Anxiety 01/09/18 17:30 01/16/18 17:29 Losartan Potassium (Cozaar) 25 mg DAILY ORAL 01/11/18 09:00 02/10/18 08:59 01/11/18 08:55 Methocarbamol (Robaxin) 750 mg TID ORAL 01/09/18 18:00 02/08/18 17:59 01/11/18 12:46 Morphine Sulfate (Morphine Sulfate) 1 mg Q4H PRN IVP For Pain 7-01/09/18 17:30 01/16/18 17:29 01/11/18 09:45 Nitroglycerin (Ntg) 0.4 mg Q5M X 3 DOSES PRN SL Prn Chest Pain 01/09/18 17:30 02/08/18 17:29 Ondansetron HCl (Zofran) 4 mg Q6H PRN IVP Nausea & Vomiting 01/09/18 17:30 02/08/18 17:29 Polyethylene Glycol (Miralax) 17 gm HSPRN PRN ORAL Constipation 01/09/18 17:30 02/08/18 17:29 Sodium Chloride 1,000 ml @ 75 mls/hr [id number] IV 01/11/18 12:30 02/10/18 12:29 01/11/18 12:34 Temazepam (Restoril) 15 mg HSPRN PRN ORAL Insomnia 01/09/18 17:30 01/16/18 17:29 01/10/18 03:11 Allergies: Coded Allergies: IODINE (Verified Allergy, Unknown, 01/22/16) PENICILLINS (Unverified Allergy, Unknown, 08/29/17) SULFA (SULFONAMIDE ANTIBIOTICS) (Unverified Allergy, Unknown, 11/06/17) Uncoded Allergies: ANTIBIOTICS (Allergy, Unknown, 08/14/16) PT. STATE SHE CAN ONLY TAKE SULFA DRUGS. ROS Limited/Unobtainable: No Constitutional: Reports: no symptoms HEENT: Reports: no symptoms Cardiovascular: Reports: no symptoms Respiratory: Reports: no symptoms Gastrointestinal/Abdominal: Reports: no symptoms Genitourinary: Reports: no symptoms Neurologic/Psychiatric: Reports: no symptoms Subjective 72 YO F admitted with syncope. Now UTI. Cover for Int Med-Dr Rizo. Objective Last Vital Signs Date Time Temp Pulse Resp B/P (MAP) Pulse Ox O2 Delivery O2 Flow Rate FiO2 01/11/18 12:00 75 01/11/18 12:00 98.2 20 163/97 (119) 95 98.2 01/11/18 09:42 Room Air 21 Laboratory Tests Test 01/11/18 07:10 White Blood Count 7.9 K/UL (4.8-10.8) Red Blood Count 4.56 M/UL (4.20-5.40) Hemoglobin 13.8 G/DL (12.0-16.0) Hematocrit 40.3 % (37.0-47.0) Mean Corpuscular Volume 88 FL (80-99) Mean Corpuscular Hemoglobin 30.2 PG (27.0-31.0) Mean Corpuscular Hemoglobin Concent 34.2 G/DL (32.0-36.0) Red Cell Distribution Width 11.2 % (11.6-14.8) L Platelet Count 262 K/UL (150-450) Mean Platelet Volume 6.7 FL (6.5-10.1) Neutrophils (%) (Auto) 55.9 % (45.0-75.0) Lymphocytes (%) (Auto) 30.4 % (20.0-45.0) Monocytes (%) (Auto) 7.7 % (1.0-10.0) Eosinophils (%) (Auto) 4.7 % (0.0-3.0) H Basophils (%) (Auto) 1.4 % (0.0-2.0) Sodium Level 143 MMOL/L (136-145) Potassium Level 3.6 MMOL/L (3.5-5.1) Chloride Level 107 MMOL/L (98-107) Carbon Dioxide Level 32 MMOL/L (21-32) Anion Gap 4 mmol/L (5-15) L Blood Urea Nitrogen 19 mg/dL (7-18) H Creatinine 0.8 MG/DL (0.55-1.30) Estimat Glomerular Filtration Rate mL/min (>60) Glucose Level 92 MG/DL (74-106) Calcium Level 9.3 MG/DL (8.5-10.1) Microbiology Date/Time Source Procedure Growth Status 01/09/18 13:40 Urine,Clean Catch Urine Culture - Final Escherichia Coli Complete Intake and Output 01/10/18 01/11/18 19:00 07:00 Intake Total 480 ml 800 ml Balance 480 ml 800 ml Intake Oral 480 ml 800 ml # Voids 4 2 # Bowel Movements 2 Objective HYSICAL EXAMINATION: GENERAL: The patient is a well-developed and well-nourished female, in no apparent distress. HEENT: Pupils equal and responsive to light and accommodation. Extraocular movements are intact. NECK: Supple without lymphadenopathy. CHEST: Lungs are clear to auscultation bilaterally without wheezes or rales. CARDIOVASCULAR: Regular rate. S1, S2 normal without murmurs, rubs, or gallops. ABDOMEN: Soft, nontender, and nondistended. Positive bowel sounds. No evidence of hepatosplenomegaly. Currently, no rebound or guarding noted. EXTREMITIES: Negative for clubbing, cyanosis, or edema. RECTAL: Refused. GENITAL: Refused. NEUROLOGIC: Cranial nerves II through XII are grossly intact without focal deficits. Motor strength is 5/5 bilaterally. Deep tendon reflexes are 2+ Assessment/Plan Problem List: (1) Cerebral vascular disease Assessment & Plan: MRI brain = neg for acute CVA (2) Syncope (3) HTN (hypertension) Assessment & Plan: Continue prn clonidine (4) Fibromyalgia (5) Hypokalemia Assessment & Plan: Replace with oral KCL (6) Acute encephalopathy (7) UTI (urinary tract infection) Assessment & Plan: E. Coli. Continue ceftriaxone. Status: progressing Vishal Smalls MD Jan 11, 2018 17:01
[2018-01-12] VITALS: BP 134/73
[2018-01-12 04:00] VITALS: BP 131/70
[2018-01-12 07:16] LABS: BASOPHILS % (AUTO) 1.3 % (0.0-2.0); EOSINOPHILS % (AUTO) 5.8 % (0.0-3.0); HEMATOCRIT 38.3 % (37.0-47.0); HEMOGLOBIN 13.1 G/DL (12.0-16.0); LYMPHOCYTES % (AUTO) 33.8 % (20.0-45.0); MEAN CORPUSCULAR VOLUME 88 FL (80-99); MONOCYTES % (AUTO) 7.5 % (1.0-10.0); NEUTROPHILS % (AUTO) 51.6 % (45.0-75.0); PLATELET COUNT 261 K/UL (150-450); RED BLOOD COUNT 4.36 M/UL (4.20-5.40); RED CELL DISTRIBUTION WIDTH 11.2 % (11.6-14.8)
[2018-01-12 07:33] LABS: ANION GAP 5 mmol/L (5-15); BLOOD UREA NITROGEN 20 mg/dL (7-18); CALCIUM 9.3 MG/DL (8.5-10.1); CARBON DIOXIDE 33 MMOL/L (21-32); CHLORIDE 106 MMOL/L (98-107); CREATININE 0.9 MG/DL (0.55-1.30); POTASSIUM 3.3 MMOL/L (3.5-5.1); SODIUM 144 MMOL/L (136-145)
[2018-01-12 08:00] VITALS: BP 166/103
--- NOTE | 2018-01-12 08:07 | Pulmonology Progress Note ---
Assessment/Plan Assessment/Plan ASSESSMENT syncopal episode UTI with E. coli SOLOMON, present on admission- resolved dehydration , leading to hypovolemia HTN Hyperlipidemia cerebrovascular disease with hx of CVA fibromyalgia hypokalemia major depression in partial remission PLAN OF CARE telemetry CT head and MRI of the brain negative Carotid duplex essentially negative. telemetry -no evidence of arrhythmia Echo with pEF of 65% and RVSP of 20 check orthostatic VS +, start on IVF BP management increase losartan dose, Clonidine prn, up titrate further as needed lipid panel with elevated TC and LDL started statin and a/PLT therapy syncopal episode was probably due to hypovolemia brought in by dehydration, which also resulted in SOLOMON Venous Duplex DVT prophylaxis O2 HHN prn urine culture+ E. coli , abx monitor renal parameters and lytes , avoid nephrotoxic, correct lytes prn pain management bowel regimen replace e/lytes prn psych meds adjusted as per psychiatrist keep on tele until BP stabilized case discussed and evaluated by supervising physician Subjective Allergies: Coded Allergies: IODINE (Verified Allergy, Unknown, 01/22/16) PENICILLINS (Unverified Allergy, Unknown, 08/29/17) SULFA (SULFONAMIDE ANTIBIOTICS) (Unverified Allergy, Unknown, 11/06/17) Uncoded Allergies: ANTIBIOTICS (Allergy, Unknown, 08/14/16) PT. STATE SHE CAN ONLY TAKE SULFA DRUGS. Subjective leukocytosis resolved, K stable pulse ox stable on RA BP still elevated, was not transferred to ID due to uncontrolled BP creat down to normal Objective Last 24 Hour Vital Signs Date Time Temp Pulse Resp B/P (MAP) Pulse Ox O2 Delivery O2 Flow Rate FiO2 01/12/18 04:00 97.4 65 20 131/70 (90) 99 97.4 01/12/18 04:00 65 01/12/18 00:00 96.6 79 18 134/73 (93) 96 96.6 01/12/18 00:00 79 01/11/18 21:27 166/98 01/11/18 21:10 88 18 Room Air 21 01/11/18 21:00 Room Air 01/11/18 20:00 89 01/11/18 20:00 97.9 84 20 165/92 (116) 96 97.9 01/11/18 16:00 98.2 84 21 156/97 (116) 96 98.2 01/11/18 16:00 98 01/11/18 12:00 75 01/11/18 12:00 98.2 123 20 163/97 (119) 95 98.2 01/11/18 11:40 98 01/11/18 11:35 123 01/11/18 11:30 87 01/11/18 11:14 90 20 112/75 (87) 95 01/11/18 09:42 89 18 Room Air 21 01/11/18 09:00 Room Air 01/11/18 08:55 153/89 Intake and Output 01/11/18 01/12/18 19:00 07:00 Intake Total 1101 ml 850 ml Balance 1101 ml 850 ml Intake Oral 560 ml IV Total 541 ml 850 ml # Voids 3 Objective General Appearance: WD/WN, no acute distress HEENT: normocephalic, atraumatic, anicteric, mucous membranes moist Respiratory/Chest: lungs clear, no respiratory distress, no accessory muscle use Cardiovascular: normal rate, regular rhythm - SR Abdomen: normal bowel sounds, soft, non tender, non distended Extremities: no edema, pedal pulses normal Neurologic/Psychiatric: alert, oriented x 3, responsive Musculoskeletal: normal muscle bulk Microbiology Date/Time Source Procedure Growth Status 01/09/18 13:40 Urine,Clean Catch Urine Culture - Final Escherichia Coli Complete Laboratory Tests 01/12/18 06:35: White Blood Count 8.0, Red Blood Count 4.36, Hemoglobin 13.1, Hematocrit 38.3, Mean Corpuscular Volume 88, Mean Corpuscular Hemoglobin 30.1, Mean Corpuscular Hemoglobin Concent 34.3, Red Cell Distribution Width 11.2L, Platelet Count 261, Mean Platelet Volume 7.2, Neutrophils (%) (Auto) 51.6, Lymphocytes (%) (Auto) 33.8, Monocytes (%) (Auto) 7.5, Eosinophils (%) (Auto) 5.8H, Basophils (%) (Auto ) 1.3, Sodium Level 144, Potassium Level 3.3L, Chloride Level 106, Carbon Dioxide Level 33H, Anion Gap 5, Blood Urea Nitrogen 20H, Creatinine 0.9, Estimat Glomerular Filtration Rate , Glucose Level 104, Calcium Level 9.3 Current Medications Medications (Trade) Dose Ordered Sig/Terry Route PRN Reason Start Time Stop Time Status Last Admin Dose Admin Acetaminophen (Tylenol) 650 mg Q4H PRN ORAL fever (temp>100.5F) 01/09/18 17:30 02/08/18 17:29 01/11/18 21:27 Al Hydroxide/Mg Hydroxide (Mylanta II) 30 ml Q6H PRN ORAL dyspepsia 01/09/18 17:30 02/08/18 17:29 Albuterol/ Ipratropium (Albuterol/ Ipratropium) 3 ml Q4H PRN HHN Shortness of Breath 01/09/18 17:30 01/14/18 17:29 Aspirin (Ecotrin) 81 mg DAILY ORAL 01/11/18 09:00 02/10/18 08:59 01/11/18 08:54 Atorvastatin Calcium (Lipitor) 10 mg BEDTIME ORAL 01/11/18 21:00 02/10/18 20:59 01/11/18 21:16 Ceftriaxone Sodium 1 gm/ Dextrose 55 ml @ 110 mls/hr Q24H IVPB 01/10/18 15:00 01/17/18 14:59 01/11/18 15:20 Clonidine HCl (Catapres Tab) 0.1 mg Q4H PRN ORAL For High Blood Pressure 01/09/18 17:30 02/08/18 17:29 01/11/18 21:27 Dextrose (Dextrose 50%) 25 ml Q30M PRN IV Hypoglycemia 01/09/18 17:30 02/08/18 17:29 Dextrose (Dextrose 50%) 50 ml Q30M PRN IV Hypoglycemia 01/09/18 17:30 02/08/18 17:29 Diphenhydramine HCl (Benadryl) 25 mg Q8H PRN ORAL Itching 01/09/18 21:30 02/08/18 21:29 01/10/18 18:16 Duloxetine HCl (Cymbalta) 90 mg DAILY ORAL 01/11/18 09:00 02/10/18 08:59 01/11/18 08:55 Gabapentin (Neurontin) 1,600 mg BID ORAL 01/10/18 09:00 02/09/18 08:59 01/11/18 17:17 Heparin Sodium (Porcine) (Heparin 5000 units/ml) 5,000 units EVERY 12 HOURS SUBQ 01/09/18 21:00 02/08/18 20:59 01/11/18 21:16 Lorazepam (Ativan 2mg/ml 1ml) 0.5 mg Q4H PRN IV For Anxiety 01/09/18 17:30 01/16/18 17:29 Losartan Potassium (Cozaar) 25 mg DAILY ORAL 01/11/18 09:00 02/10/18 08:59 01/11/18 08:55 Methocarbamol (Robaxin) 750 mg TID ORAL 01/09/18 18:00 02/08/18 17:59 01/11/18 17:17 Morphine Sulfate (Morphine Sulfate) 1 mg Q4H PRN IVP For Pain 7-10 01/09/18 17:30 01/16/18 17:29 01/11/18 09:45 Nitroglycerin (Ntg) 0.4 mg Q5M X 3 DOSES PRN SL Prn Chest Pain 01/09/18 17:30 02/08/18 17:29 Ondansetron HCl (Zofran) 4 mg Q6H PRN IVP Nausea & Vomiting 01/09/18 17:30 02/08/18 17:29 Polyethylene Glycol (Miralax) 17 gm HSPRN PRN ORAL Constipation 01/09/18 17:30 02/08/18 17:29 Sodium Chloride 1,000 ml @ 75 mls/hr [id number] IV 01/11/18 12:30 02/10/18 12:29 01/12/18 02:25 Temazepam (Restoril) 15 mg HSPRN PRN ORAL Insomnia 01/09/18 17:30 01/16/18 17:29 01/11/18 23:34 Kathy Givens NP Jan 12, 2018 08:07
[2018-01-12] MEDS: Methocarbamol 750mg tab ORAL SCH ×3 (09:35→17:17)
[2018-01-12] MEDS: DULoxetine 30mg cap ORAL SCH (09:35)
[2018-01-12] MEDS: Aspirin EC 81mg tab ORAL SCH (09:35)
[2018-01-12] MEDS: Losartan 25mg tab ORAL SCH (09:36)
[2018-01-12] MEDS: Heparin 5000 units/ml inj SUBQ SCH ×2 (09:40→21:33)
[2018-01-12] MEDS ORDERED: Losartan 25mg tab ORAL SCH (10:00)
[2018-01-12] MEDS ORDERED: Tubing IV Secondary IV ONE (10:01)
[2018-01-12] MEDS ORDERED: NS 275ml ONE (10:01)
[2018-01-12 11:54] VITALS: BP 147/78
[2018-01-12] MEDS: cefTRIAXone 1 GM in D5W 55 ML IVPB SCH (14:07)
--- NOTE | 2018-01-12 15:53 | Internal Med Progress Note ---
Subjective Date of Service: Jan 12, 2018 Physician Name Smalls,Vishal Attending Physician Morris Rizo MD Current Medications Medications (Trade) Dose Ordered Sig/Terry Route PRN Reason Start Time Stop Time Status Last Admin Dose Admin Acetaminophen (Tylenol) 650 mg Q4H PRN ORAL fever (temp>100.5F) 01/09/18 17:30 02/08/18 17:29 01/11/18 21:27 Al Hydroxide/Mg Hydroxide (Mylanta II) 30 ml Q6H PRN ORAL dyspepsia 01/09/18 17:30 02/08/18 17:29 Albuterol/ Ipratropium (Albuterol/ Ipratropium) 3 ml Q4H PRN HHN Shortness of Breath 01/09/18 17:30 01/14/18 17:29 Aspirin (Ecotrin) 81 mg DAILY ORAL 01/11/18 09:00 02/10/18 08:59 01/12/18 09:35 Atorvastatin Calcium (Lipitor) 10 mg BEDTIME ORAL 01/11/18 21:00 02/10/18 20:59 01/11/18 21:16 Ceftriaxone Sodium 1 gm/ Dextrose 55 ml @ 110 mls/hr Q24H IVPB 01/10/18 15:00 01/17/18 14:59 01/12/18 14:07 Clonidine HCl (Catapres Tab) 0.1 mg Q4H PRN ORAL For High Blood Pressure 01/09/18 17:30 02/08/18 17:29 01/11/18 21:27 Dextrose (Dextrose 50%) 25 ml Q30M PRN IV Hypoglycemia 01/09/18 17:30 02/08/18 17:29 Dextrose (Dextrose 50%) 50 ml Q30M PRN IV Hypoglycemia 01/09/18 17:30 02/08/18 17:29 Diphenhydramine HCl (Benadryl) 25 mg Q8H PRN ORAL Itching 01/09/18 21:30 02/08/18 21:29 01/10/18 18:16 Duloxetine HCl (Cymbalta) 90 mg DAILY ORAL 01/11/18 09:00 02/10/18 08:59 01/12/18 09:35 Gabapentin (Neurontin) 1,600 mg BID ORAL 01/10/18 09:00 02/09/18 08:59 01/12/18 09:36 Heparin Sodium (Porcine) (Heparin 5000 units/ml) 5,000 units EVERY 12 HOURS SUBQ 01/09/18 21:00 02/08/18 20:59 01/12/18 09:40 Lorazepam (Ativan 2mg/ml 1ml) 0.5 mg Q4H PRN IV For Anxiety 01/09/18 17:30 01/16/18 17:29 Losartan Potassium (Cozaar) 50 mg DAILY ORAL 01/13/18 09:00 02/10/18 08:59 Methocarbamol (Robaxin) 750 mg TID ORAL 01/09/18 18:00 02/08/18 17:59 01/12/18 12:28 Morphine Sulfate (Morphine Sulfate) 1 mg Q4H PRN IVP For Pain 7-01/09/18 17:30 01/16/18 17:29 01/11/18 09:45 Nitroglycerin (Ntg) 0.4 mg Q5M X 3 DOSES PRN SL Prn Chest Pain 01/09/18 17:30 02/08/18 17:29 Ondansetron HCl (Zofran) 4 mg Q6H PRN IVP Nausea & Vomiting 01/09/18 17:30 02/08/18 17:29 Polyethylene Glycol (Miralax) 17 gm HSPRN PRN ORAL Constipation 01/09/18 17:30 02/08/18 17:29 Temazepam (Restoril) 15 mg HSPRN PRN ORAL Insomnia 01/09/18 17:30 01/16/18 17:29 01/11/18 23:34 Allergies: Coded Allergies: IODINE (Verified Allergy, Unknown, 01/22/16) PENICILLINS (Unverified Allergy, Unknown, 08/29/17) SULFA (SULFONAMIDE ANTIBIOTICS) (Unverified Allergy, Unknown, 11/06/17) Uncoded Allergies: ANTIBIOTICS (Allergy, Unknown, 08/14/16) PT. STATE SHE CAN ONLY TAKE SULFA DRUGS. ROS Limited/Unobtainable: No Constitutional: Reports: no symptoms HEENT: Reports: no symptoms Cardiovascular: Reports: no symptoms Respiratory: Reports: no symptoms Gastrointestinal/Abdominal: Reports: no symptoms Genitourinary: Reports: no symptoms Neurologic/Psychiatric: Reports: no symptoms Subjective 72 YO F admitted with syncope. Now UTI. Cover for Int Med-Dr Rizo. Objective Last Vital Signs Date Time Temp Pulse Resp B/P (MAP) Pulse Ox O2 Delivery O2 Flow Rate FiO2 01/12/18 12:00 80 01/12/18 11:54 98.1 19 147/78 (101) 100 98.1 01/12/18 09:00 Room Air 01/12/18 08:52 21 Laboratory Tests Test 01/12/18 06:35 White Blood Count 8.0 K/UL (4.8-10.8) Red Blood Count 4.36 M/UL (4.20-5.40) Hemoglobin 13.1 G/DL (12.0-16.0) Hematocrit 38.3 % (37.0-47.0) Mean Corpuscular Volume 88 FL (80-99) Mean Corpuscular Hemoglobin 30.1 PG (27.0-31.0) Mean Corpuscular Hemoglobin Concent 34.3 G/DL (32.0-36.0) Red Cell Distribution Width 11.2 % (11.6-14.8) L Platelet Count 261 K/UL (150-450) Mean Platelet Volume 7.2 FL (6.5-10.1) Neutrophils (%) (Auto) 51.6 % (45.0-75.0) Lymphocytes (%) (Auto) 33.8 % (20.0-45.0) Monocytes (%) (Auto) 7.5 % (1.0-10.0) Eosinophils (%) (Auto) 5.8 % (0.0-3.0) H Basophils (%) (Auto) 1.3 % (0.0-2.0) Sodium Level 144 MMOL/L (136-145) Potassium Level 3.3 MMOL/L (3.5-5.1) L Chloride Level 106 MMOL/L (98-107) Carbon Dioxide Level 33 MMOL/L (21-32) H Anion Gap 5 mmol/L (5-15) Blood Urea Nitrogen 20 mg/dL (7-18) H Creatinine 0.9 MG/DL (0.55-1.30) Estimat Glomerular Filtration Rate mL/min (>60) Glucose Level 104 MG/DL (74-106) Calcium Level 9.3 MG/DL (8.5-10.1) Intake and Output 01/11/18 01/12/18 19:00 07:00 Intake Total 1101 ml 850 ml Balance 1101 ml 850 ml Intake Oral 560 ml IV Total 541 ml 850 ml # Voids 3 Objective HYSICAL EXAMINATION: GENERAL: The patient is a well-developed and well-nourished female, in no apparent distress. HEENT: Pupils equal and responsive to light and accommodation. Extraocular movements are intact. NECK: Supple without lymphadenopathy. CHEST: Lungs are clear to auscultation bilaterally without wheezes or rales. CARDIOVASCULAR: Regular rate. S1, S2 normal without murmurs, rubs, or gallops. ABDOMEN: Soft, nontender, and nondistended. Positive bowel sounds. No evidence of hepatosplenomegaly. Currently, no rebound or guarding noted. EXTREMITIES: Negative for clubbing, cyanosis, or edema. RECTAL: Refused. GENITAL: Refused. NEUROLOGIC: Cranial nerves II through XII are grossly intact without focal deficits. Motor strength is 5/5 bilaterally. Deep tendon reflexes are 2+ Assessment/Plan Problem List: (1) Cerebral vascular disease Assessment & Plan: MRI brain = neg for acute CVA (2) Syncope (3) HTN (hypertension) Assessment & Plan: Continue prn clonidine (4) Fibromyalgia (5) Hypokalemia Assessment & Plan: Replace with oral KCL (6) Acute encephalopathy (7) UTI (urinary tract infection) Assessment & Plan: E. Coli. Continue ceftriaxone. Assessment/Plan Discharge planning: Patient wants to D/C to [facility] Vishal Luque MD Jan 12, 2018 15:53
[2018-01-12 16:00] VITALS: BP 130/84
[2018-01-12 20:00] VITALS: BP 135/89
[2018-01-13] VITALS: BP 132/88
[2018-01-13 04:00] VITALS: BP 144/86
[2018-01-13 07:10] LABS: BASOPHILS % (AUTO) 1.2 % (0.0-2.0); EOSINOPHILS % (AUTO) 6.1 % (0.0-3.0); HEMATOCRIT 37.3 % (37.0-47.0); LYMPHOCYTES % (AUTO) 28.3 % (20.0-45.0); MEAN CORPUSCULAR VOLUME 88 FL (80-99); MONOCYTES % (AUTO) 8.1 % (1.0-10.0); NEUTROPHILS % (AUTO) 56.3 % (45.0-75.0); PLATELET COUNT 264 K/UL (150-450); RED BLOOD COUNT 4.23 M/UL (4.20-5.40); RED CELL DISTRIBUTION WIDTH 11.3 % (11.6-14.8); WHITE BLOOD COUNT 7.9 K/UL (4.8-10.8)
[2018-01-13 07:43] LABS: ANION GAP 7 mmol/L (5-15); CALCIUM 9.2 MG/DL (8.5-10.1); CARBON DIOXIDE 30 MMOL/L (21-32); CHLORIDE 106 MMOL/L (98-107); CREATININE 0.8 MG/DL (0.55-1.30); POTASSIUM 3.5 MMOL/L (3.5-5.1); SODIUM 143 MMOL/L (136-145)
[2018-01-13 08:00] VITALS: BP 153/115
[2018-01-13 08:11] LABS: BLOOD UREA NITROGEN 17 mg/dL (7-18)
[2018-01-13] MEDS: DULoxetine 30mg cap ORAL SCH (08:33)
[2018-01-13] MEDS: Methocarbamol 750mg tab ORAL SCH ×2 (08:33→13:00)
[2018-01-13] MEDS: Aspirin EC 81mg tab ORAL SCH (08:34)
[2018-01-13] MEDS: Heparin 5000 units/ml inj SUBQ SCH (08:36)
[2018-01-13] MEDS ORDERED: Losartan 50mg tab ORAL SCH (09:00)
--- NOTE | 2018-01-13 10:27 | General Progress Note ---
Assessment/Plan Problem List: (1) Major depression in partial remission ICD Codes: F32.4 - Major depressive disorder, single episode, in partial remission SNOMED: 32897816 (2) Back pain ICD Codes: M54.9 - Dorsalgia, unspecified SNOMED: 910283593 Status: stable Assessment/Plan (1) Major depression in partial remission ICD Codes: F32.4 - Major depressive disorder, single episode, in partial remission SNOMED: 35624360 (2) Back pain ICD Codes: M54.9 - Dorsalgia, unspecified SNOMED: 740486263 Assessment/Plan Cymbalta 90 mg qam the pt takes 120mg qam provided ro/st Subjective Date patient seen: Jan 13, 2018 Neurologic/Psychiatric: Reports: anxiety, depressed, emotional problems Allergies: Coded Allergies: IODINE (Verified Allergy, Unknown, 01/22/16) PENICILLINS (Unverified Allergy, Unknown, 08/29/17) SULFA (SULFONAMIDE ANTIBIOTICS) (Unverified Allergy, Unknown, 11/06/17) Uncoded Allergies: ANTIBIOTICS (Allergy, Unknown, 08/14/16) PT. STATE SHE CAN ONLY TAKE SULFA DRUGS. Subjective the pt stated that she was homeless and appeared depressed Objective Last 24 Hour Vital Signs Date Time Temp Pulse Resp B/P (MAP) Pulse Ox O2 Delivery O2 Flow Rate FiO2 01/13/18 09:00 Room Air 01/13/18 08:34 153/115 01/13/18 08:00 98.8 93 18 153/115 (128) 97 98.8 01/13/18 04:00 80 01/13/18 04:00 98.0 79 18 144/86 (105) 96 98.0 01/13/18 00:00 98.7 90 16 132/88 (103) 97 98.7 01/13/18 00:00 86 01/12/18 21:00 Room Air 01/12/18 20:20 87 16 Room Air 21 01/12/18 20:00 88 01/12/18 20:00 98.6 89 18 135/89 (104) 97 98.6 01/12/18 16:00 98.1 81 19 130/84 (99) 97 98.1 01/12/18 16:00 82 01/12/18 12:00 80 01/12/18 11:54 98.1 76 19 147/78 (101) 100 98.1 Intake and Output 01/12/18 01/13/18 19:00 07:00 Intake Total 675 ml 780 ml Balance 675 ml 780 ml Intake Oral 600 ml 780 ml IV Total 75 ml # Voids 7 4 # Bowel Movements 2 Laboratory Tests 01/13/18 06:45: White Blood Count 7.9, Red Blood Count 4.23, Hemoglobin 13.0, Hematocrit 37.3, Mean Corpuscular Volume 88, Mean Corpuscular Hemoglobin 30.7, Mean Corpuscular Hemoglobin Concent 34.8, Red Cell Distribution Width 11.3L, Platelet Count 264, Mean Platelet Volume 7.4, Neutrophils (%) (Auto) 56.3, Lymphocytes (%) (Auto) 28.3, Monocytes (%) (Auto) 8.1, Eosinophils (%) (Auto) 6.1H, Basophils (%) (Auto ) 1.2, Sodium Level 143, Potassium Level 3.5, Chloride Level 106, Carbon Dioxide Level 30, Anion Gap 7, Blood Urea Nitrogen 17, Creatinine 0.8, Estimat Glomerular Filtration Rate , Glucose Level 91, Calcium Level 9.2 Height (Feet): 5 Height (Inches): 3.00 Weight (Pounds): 160 General Appearance: no apparent distress, alert Neurologic: oriented x 3, responsive, depressed affect Jett Aleman MD Jan 13, 2018 10:27
--- NOTE | 2018-01-13 10:28 | Psych Consult Progress Note ---
Psych Consult Progress Note Consult 01/11/18 the pt is stable at baseline no behavior. Vital Signs Last 24 Hour Vital Signs Date Time Temp Pulse Resp B/P (MAP) Pulse Ox O2 Delivery O2 Flow Rate FiO2 01/13/18 09:00 Room Air 01/13/18 08:34 153/115 01/13/18 08:00 98.8 93 18 153/115 (128) 97 98.8 01/13/18 04:00 80 01/13/18 04:00 98.0 79 18 144/86 (105) 96 98.0 01/13/18 00:00 98.7 90 16 132/88 (103) 97 98.7 01/13/18 00:00 86 01/12/18 21:00 Room Air 01/12/18 20:20 87 16 Room Air 21 01/12/18 20:00 88 01/12/18 20:00 98.6 89 18 135/89 (104) 97 98.6 01/12/18 16:00 98.1 81 19 130/84 (99) 97 98.1 01/12/18 16:00 82 01/12/18 12:00 80 01/12/18 11:54 98.1 76 19 147/78 (101) 100 98.1 Labs Laboratory Tests Test 01/13/18 06:45 White Blood Count 7.9 K/UL (4.8-10.8) Red Blood Count 4.23 M/UL (4.20-5.40) Hemoglobin 13.0 G/DL (12.0-16.0) Hematocrit 37.3 % (37.0-47.0) Mean Corpuscular Volume 88 FL (80-99) Mean Corpuscular Hemoglobin 30.7 PG (27.0-31.0) Mean Corpuscular Hemoglobin Concent 34.8 G/DL (32.0-36.0) Red Cell Distribution Width 11.3 % (11.6-14.8) L Platelet Count 264 K/UL (150-450) Mean Platelet Volume 7.4 FL (6.5-10.1) Neutrophils (%) (Auto) 56.3 % (45.0-75.0) Lymphocytes (%) (Auto) 28.3 % (20.0-45.0) Monocytes (%) (Auto) 8.1 % (1.0-10.0) Eosinophils (%) (Auto) 6.1 % (0.0-3.0) H Basophils (%) (Auto) 1.2 % (0.0-2.0) Sodium Level 143 MMOL/L (136-145) Potassium Level 3.5 MMOL/L (3.5-5.1) Chloride Level 106 MMOL/L (98-107) Carbon Dioxide Level 30 MMOL/L (21-32) Anion Gap 7 mmol/L (5-15) Blood Urea Nitrogen 17 mg/dL (7-18) Creatinine 0.8 MG/DL (0.55-1.30) Estimat Glomerular Filtration Rate mL/min (>60) Glucose Level 91 MG/DL (74-106) Calcium Level 9.2 MG/DL (8.5-10.1) Medications Current Medications Medications (Trade) Dose Ordered Sig/Terry Route PRN Reason Start Time Stop Time Status Last Admin Dose Admin Acetaminophen (Tylenol) 650 mg Q4H PRN ORAL fever (temp>100.5F) 01/09/18 17:30 02/08/18 17:29 01/13/18 03:54 Al Hydroxide/Mg Hydroxide (Mylanta II) 30 ml Q6H PRN ORAL dyspepsia 01/09/18 17:30 02/08/18 17:29 Albuterol/ Ipratropium (Albuterol/ Ipratropium) 3 ml Q4H PRN HHN Shortness of Breath 01/09/18 17:30 01/14/18 17:29 Aspirin (Ecotrin) 81 mg DAILY ORAL 01/11/18 09:00 02/10/18 08:59 01/13/18 08:34 Atorvastatin Calcium (Lipitor) 10 mg BEDTIME ORAL 01/11/18 21:00 02/10/18 20:59 01/12/18 21:32 Ceftriaxone Sodium 1 gm/ Dextrose 55 ml @ 110 mls/hr Q24H IVPB 01/10/18 15:00 01/17/18 14:59 01/12/18 14:07 Clonidine HCl (Catapres Tab) 0.1 mg Q4H PRN ORAL For High Blood Pressure 01/09/18 17:30 02/08/18 17:29 01/11/18 21:27 Dextrose (Dextrose 50%) 25 ml Q30M PRN IV Hypoglycemia 01/09/18 17:30 02/08/18 17:29 Dextrose (Dextrose 50%) 50 ml Q30M PRN IV Hypoglycemia 01/09/18 17:30 02/08/18 17:29 Diphenhydramine HCl (Benadryl) 25 mg Q8H PRN ORAL Itching 01/09/18 21:30 02/08/18 21:29 01/10/18 18:16 Duloxetine HCl (Cymbalta) 90 mg DAILY ORAL 01/11/18 09:00 02/10/18 08:59 01/13/18 08:33 Gabapentin (Neurontin) 1,600 mg BID ORAL 01/10/18 09:00 02/09/18 08:59 01/13/18 08:33 Heparin Sodium (Porcine) (Heparin 5000 units/ml) 5,000 units EVERY 12 HOURS SUBQ 01/09/18 21:00 02/08/18 20:59 01/13/18 08:36 Lorazepam (Ativan 2mg/ml 1ml) 0.5 mg Q4H PRN IV For Anxiety 01/09/18 17:30 01/16/18 17:29 Losartan Potassium (Cozaar) 50 mg DAILY ORAL 01/13/18 09:00 02/10/18 08:59 01/13/18 08:34 Methocarbamol (Robaxin) 750 mg TID ORAL 01/09/18 18:00 02/08/18 17:59 01/13/18 08:33 Morphine Sulfate (Morphine Sulfate) 1 mg Q4H PRN IVP For Pain 7-10 01/09/18 17:30 01/16/18 17:29 01/11/18 09:45 Nitroglycerin (Ntg) 0.4 mg Q5M X 3 DOSES PRN SL Prn Chest Pain 01/09/18 17:30 02/08/18 17:29 Ondansetron HCl (Zofran) 4 mg Q6H PRN IVP Nausea & Vomiting 01/09/18 17:30 02/08/18 17:29 Polyethylene Glycol (Miralax) 17 gm HSPRN PRN ORAL Constipation 01/09/18 17:30 02/08/18 17:29 Temazepam (Restoril) 15 mg HSPRN PRN ORAL Insomnia 01/09/18 17:30 01/16/18 17:29 01/12/18 21:32 Problems: (1) Major depression in partial remission (2) Back pain Status: Acute Assessment & Plan: (1) Major depression in partial remission ICD Codes: F32.4 - Major depressive disorder, single episode, in partial remission SNOMED: [id number] (2) Back pain ICD Codes: M54.9 - Dorsalgia, unspecified SNOMED: [id number] Assessment/Plan Cymbalta 90 mg qam the pt takes 120mg qam provided ro/Jett Hoffmann MD Jan 13, 2018 10:28
[2018-01-13 12:00] VITALS: BP 158/89
--- NOTE | 2018-01-13 12:20 | Pulmonology Progress Note ---
Assessment/Plan Problems: (1) Acute encephalopathy (2) UTI (urinary tract infection) (3) COPD (chronic obstructive pulmonary disease) (4) HTN (hypertension) (5) Fibromyalgia Assessment/Plan improving no new complains all reviewed monitor BP respiratory treatment Subjective ROS Limited/Unobtainable: No Constitutional: Reports: no symptoms Respiratory: Reports: no symptoms Allergies: Coded Allergies: IODINE (Verified Allergy, Unknown, 01/22/16) PENICILLINS (Unverified Allergy, Unknown, 08/29/17) SULFA (SULFONAMIDE ANTIBIOTICS) (Unverified Allergy, Unknown, 11/06/17) Uncoded Allergies: ANTIBIOTICS (Allergy, Unknown, 08/14/16) PT. STATE SHE CAN ONLY TAKE SULFA DRUGS. Objective Last 24 Hour Vital Signs Date Time Temp Pulse Resp B/P (MAP) Pulse Ox O2 Delivery O2 Flow Rate FiO2 01/13/18 09:00 Room Air 01/13/18 08:34 153/115 01/13/18 08:00 98.8 93 18 153/115 (128) 97 98.8 01/13/18 08:00 93 01/13/18 04:00 80 01/13/18 04:00 98.0 79 18 144/86 (105) 96 98.0 01/13/18 00:00 98.7 90 16 132/88 (103) 97 98.7 01/13/18 00:00 86 01/12/18 21:00 Room Air 01/12/18 20:20 87 16 Room Air 21 01/12/18 20:00 88 01/12/18 20:00 98.6 89 18 135/89 (104) 97 98.6 01/12/18 16:00 98.1 81 19 130/84 (99) 97 98.1 01/12/18 16:00 82 Intake and Output 01/12/18 01/13/18 19:00 07:00 Intake Total 675 ml 780 ml Balance 675 ml 780 ml Intake Oral 600 ml 780 ml IV Total 75 ml # Voids 7 4 # Bowel Movements 2 General Appearance: WD/WN HEENT: normocephalic, atraumatic Respiratory/Chest: chest wall non-tender, lungs clear, normal breath sounds Breasts: no masses Cardiovascular: normal peripheral pulses Abdomen: normal bowel sounds, no organomegaly Genitourinary: normal external genitalia Extremities: no clubbing Skin: no rash Laboratory Tests 01/13/18 06:45: White Blood Count 7.9, Red Blood Count 4.23, Hemoglobin 13.0, Hematocrit 37.3, Mean Corpuscular Volume 88, Mean Corpuscular Hemoglobin 30.7, Mean Corpuscular Hemoglobin Concent 34.8, Red Cell Distribution Width 11.3L, Platelet Count 264, Mean Platelet Volume 7.4, Neutrophils (%) (Auto) 56.3, Lymphocytes (%) (Auto) 28.3, Monocytes (%) (Auto) 8.1, Eosinophils (%) (Auto) 6.1H, Basophils (%) (Auto ) 1.2, Sodium Level 143, Potassium Level 3.5, Chloride Level 106, Carbon Dioxide Level 30, Anion Gap 7, Blood Urea Nitrogen 17, Creatinine 0.8, Estimat Glomerular Filtration Rate , Glucose Level 91, Calcium Level 9.2 Current Medications Medications (Trade) Dose Ordered Sig/Terry Route PRN Reason Start Time Stop Time Status Last Admin Dose Admin Acetaminophen (Tylenol) 650 mg Q4H PRN ORAL fever (temp>100.5F) 01/09/18 17:30 02/08/18 17:29 01/13/18 03:54 Al Hydroxide/Mg Hydroxide (Mylanta II) 30 ml Q6H PRN ORAL dyspepsia 01/09/18 17:30 02/08/18 17:29 Albuterol/ Ipratropium (Albuterol/ Ipratropium) 3 ml Q4H PRN HHN Shortness of Breath 01/09/18 17:30 01/14/18 17:29 Aspirin (Ecotrin) 81 mg DAILY ORAL 01/11/18 09:00 02/10/18 08:59 01/13/18 08:34 Atorvastatin Calcium (Lipitor) 10 mg BEDTIME ORAL 01/11/18 21:00 02/10/18 20:59 01/12/18 21:32 Ceftriaxone Sodium 1 gm/ Dextrose 55 ml @ 110 mls/hr Q24H IVPB 01/10/18 15:00 01/17/18 14:59 01/12/18 14:07 Clonidine HCl (Catapres Tab) 0.1 mg Q4H PRN ORAL For High Blood Pressure 01/09/18 17:30 02/08/18 17:29 01/11/18 21:27 Dextrose (Dextrose 50%) 25 ml Q30M PRN IV Hypoglycemia 01/09/18 17:30 02/08/18 17:29 Dextrose (Dextrose 50%) 50 ml Q30M PRN IV Hypoglycemia 01/09/18 17:30 02/08/18 17:29 Diphenhydramine HCl (Benadryl) 25 mg Q8H PRN ORAL Itching 01/09/18 21:30 02/08/18 21:29 01/10/18 18:16 Duloxetine HCl (Cymbalta) 90 mg DAILY ORAL 01/11/18 09:00 02/10/18 08:59 01/13/18 08:33 Gabapentin (Neurontin) 1,600 mg BID ORAL 01/10/18 09:00 02/09/18 08:59 01/13/18 08:33 Heparin Sodium (Porcine) (Heparin 5000 units/ml) 5,000 units EVERY 12 HOURS SUBQ 01/09/18 21:00 02/08/18 20:59 01/13/18 08:36 Lorazepam (Ativan 2mg/ml 1ml) 0.5 mg Q4H PRN IV For Anxiety 01/09/18 17:30 01/16/18 17:29 Losartan Potassium (Cozaar) 50 mg DAILY ORAL 01/13/18 09:00 02/10/18 08:59 01/13/18 08:34 Methocarbamol (Robaxin) 750 mg TID ORAL 01/09/18 18:00 02/08/18 17:59 01/13/18 08:33 Morphine Sulfate (Morphine Sulfate) 1 mg Q4H PRN IVP For Pain 7-10 01/09/18 17:30 01/16/18 17:29 01/11/18 09:45 Nitroglycerin (Ntg) 0.4 mg Q5M X 3 DOSES PRN SL Prn Chest Pain 01/09/18 17:30 02/08/18 17:29 Ondansetron HCl (Zofran) 4 mg Q6H PRN IVP Nausea & Vomiting 01/09/18 17:30 02/08/18 17:29 Polyethylene Glycol (Miralax) 17 gm HSPRN PRN ORAL Constipation 01/09/18 17:30 02/08/18 17:29 Temazepam (Restoril) 15 mg HSPRN PRN ORAL Insomnia 01/09/18 17:30 01/16/18 17:29 01/12/18 21:32 Andres Otoole MD Jan 13, 2018 12:20
[2018-01-13 14:26] VITALS: BP 168/98
[2018-01-13] MEDS: cefTRIAXone 1 GM in D5W 55 ML IVPB SCH (15:00)
--- NOTE | 2018-01-13 15:09 | Diagnostic Imaging Report ---
APPROVED REPORT CPT Code: 37299 Present Symptoms Shortness of breath BILATERAL: Imaging reveals a patent deep venous system bilaterally. There is no evidence of thrombus within the femoral, popliteal or tibial segments. The greater saphenous veins are also within normal limits. Doppler indicates normal spontaneous flow within these segments.
--- NOTE | 2018-01-13 15:11 | Diagnostic Imaging Report ---
APPROVED REPORT CPT Code: 34150 Vascular Symptoms Comments: CVA. Doppler Spectral Velocity Analysis RightLeft RIGHT SIDE: ECA/BULB- Imaging reveals irregular, minimal plaque in the carotid bulb and internal carotid arteries. VERTEBRAL - The vertebral artery is patent, without evidence of stenosis or steal. LEFT SIDE: CCA/BULB - Imaging reveals irregular, minimal plaque in the carotid bulbs. arteries. VERTEBRAL - The vertebral artery is patent, without evidence of stenosis or steal.
--- NOTE | 2018-01-14 08:02 | Discharge Summary ---
Discharge Summary Discharge Summary _ DATE OF ADMISSION: 01/09/2018 DATE OF DISCHARGE: 01/13/2018 REASON FOR ADMISSION: 72 years old female with past medical history of hypertension and fibromyalgia, presented to emergency department after syncopal event. Patient reported feeling weak and then subsequently had a syncopal episode. No seizure activity noted. No chest pain or shortness of breath. Upon evaluation in emergency department blood pressure 104/71, heart rate 103. Laboratory workup revealed leukocytosis WBC 11.5 . Urinalysis positive for UTI. Potassium 2.6. BUN 18, creatinine 1.5. Troponin negative. EKG revealed normal sinus rhythm, no acute ischemic changes. Chest x-ray revealed no acute cardiopulmonary pathology. CT of the head revealed no acute intracranial bleeding , mass effect or edema. Old infarct in the right occipital region was noted along with a moderate atrophy of the brain and evidence of chronic small vessel disease involving white matter tracts. Patient was admitted with diagnoses of syncopal episode ,hypotension, urinary tract infection ,dehydration, hypokalemia ,fibromyalgia ,acute kidney injury. CONSULTANTS: pulmonary Dr. Otoole psychiatrist [facility] COU[facility]SE: Patient admitted to telemetry floor. Patient was on IV fluids. Carotid duplex was essentially negative. Telemetry revealed no evidence of arrhythmia. Echocardiogram revealed preserved ejection fraction of 65% and right ventricular systolic pressure of 20. Orthostatic vital signs initially were positive. Patient initially was on IV hydration. Repeat orthostatic vital signs were stable. Initially antihypertensive medications were on hold. Blood pressure stabilized, and patient started on low-dose of losartan which up titrated to keep blood rpessure under control. Patient will need close follow up for blood pressure management as outpatient. Lipid panel revealed elevated total cholesterol and LDL. Patient started on statin and antiplatelet therapy. Syncopal episode was probably due to hypovolemia and hypotension, brought in by dehydration , which also resulted in acute kidney injury. Venous duplex bilateral lower extremity was negative. DVT prophylaxis provided. Supplemental oxygen provided as needed to keep pulse oximetry above 92%. Pulmonary toilet provided as needed. Urine culture revealed Escherichia coli. Patient was on antibiotics while in the hospital. Leukocytosis resolved, no fever, no urinary complaints. Patient status post antibiotic treatment for UTI. Renal parameters and electrolytes were closely monitored. Electrolytes were corrected as needed. Nephrotoxins were avoided. Electrolytes stable prior to discharge. Pain management was addressed, and pain was controlled. Bowel regimen instituted. Psychiatrist seen and evaluated patient. Reality orientation and supportive therapy provided. Psychiatric medication regimen optimized. Patient clinically improved and was stable for discharge to [facility] facility. FINAL DIAGNOSES: Syncopal episode Hypotension resolved Dehydration UTI with Escherichia coli Acute kidney injury present on admission, resolved History of hypertension Hyperlipidemia Cerebrovascular disease with history of CVA Fibromyalgia Hypokalemia COPD Major depression in partial remission DISCHARGE MEDICATIONS: List of medication was sent with patient DISCHARGE INSTRUCTIONS: Patient was discharged to the [facility] facility. Follow up with medical doctor at the facility. I have been assigned to dictate discharge summary for this account. I was not involved in the patient's management. Kathy Givens NP Jan 14, 2018 08:02
== END 2018-01-13 15:28 | DRG 683 ==
LOC: EDBD 12:10 → EMR 12:40 → 2E 13:32 → EDBEDREQ 14:47 → 2E 17:44
DX: N17.9 Acute kidney failure, unspecified (principal); G93.40 Encephalopathy, unspecified; N39.0 Urinary tract infection, site not specified; E86.0 Dehydration; I10 Essential (primary) hypertension; M79.7 Fibromyalgia; I95.9 Hypotension, unspecified; B96.20 Unspecified Escherichia coli [E. coli] as the cause of diseases classified elsewhere; E78.5 Hyperlipidemia, unspecified; Z86.73 Personal history of transient ischemic attack (TIA), and cerebral infarction without residual deficits; E87.6 Hypokalemia; J44.9 Chronic obstructive pulmonary disease, unspecified; Z88.0 Allergy status to penicillin; Z88.2 Allergy status to sulfonamides; Z88.8 Allergy status to other drugs, medicaments and biological substances; Z88.1 Allergy status to other antibiotic agents; E86.1 Hypovolemia; F32.4 Major depressive disorder, single episode, in partial remission; M54.9 Dorsalgia, unspecified
CPT/HCPCS: 36415; 70450; 70551; 71045; 80048; 80053; 80061; 81003; 82550; 82553; 83880; 84443; 84484; 85025; 85610; 85730; 87086; 87181; 93005; 93306; 93880; 93970; 94664; 96365; 99285; J8499